=== PATIENT | female | born 1950 | race Caucasian/White ===

== ENCOUNTER 2016-10-01 06:01 | Inpatient (IN) | payer MEDICARE, OTHER ==
[2016-10-01] MEDS ORDERED: Ondansetron 4 MG Tab.DIS PO ONE (06:14)
[2016-10-01] MEDS ORDERED: Dicyclomine 10 MG Cap PO ONE (06:18)
[2016-10-01] MEDS ORDERED: Acetaminophen 325 MG Tab PO ONE (06:19)
[2016-10-01] MEDS ORDERED: Lactated Ringers 1,000 ML IV ONE (06:19)
--- NOTE | 2016-10-01 06:25 | EDM.PDOC ---
ED HPI GENERAL MEDICAL PROBLEM - General Chief Complaint: General Stated Complaint: NOT FEELING WELL Time Seen by Provider: 10/01/16 06:15 Source of Information: Reports: Patient, Old Records History Limitations: Reports: No Limitations - History of Present Illness INITIAL COMMENTS - FREE TEXT/NARRATIVE: 66 yo female with abdominal cramping and nausea x 2 days. Vomited this morning and has some muscle cramping. No fever. No bleeding. Is concerned about dehydration. No self tx. Onset: Gradual Onset Date: 09/29/16 Duration: Day(s): Location: Reports: Abdomen Quality: Reports: Other (cramping) Severity: Moderate Improves with: Reports: None Worsens with: Reports: Other (? time) Context: Reports: Other (unknown) Associated Symptoms: Reports: Nausea/Vomiting Treatments HOSPITALITY SPECIALIST: Reports: Other (see below) (none) Generalized Pain Score (Numeric/FACES): 5 - Related Data Allergies Allergy/AdvReac Type Severity Reaction Status Date / Time No Known Allergies Allergy Verified 10/01/16 06:10 Home Meds: Home Meds Aspirin [Halfprin] 81 mg PO DAILY 02/06/15 [History] Cholecalciferol (Vitamin D3) [Vitamin D3] 1,000 unit PO BID 02/06/15 [History] Cyanocobalamin (Vitamin B-12) [Cyanocobalamin Injection] 1 ml IM Q30D 02/06/15 [ History] Levothyroxine Sodium 100 mcg PO DAILY 02/06/15 [History] Multivitamin [Multivitamins] 1 tab PO DAILY 02/06/15 [History] Simvastatin 20 mg PO BEDTIME 02/06/15 [History] glyBURIDE [Micronase] 2.5 mg PO BIDMEALS #60 tablet 02/08/15 [Rx] Liraglutide [Victoza] 1.2 mg SUBCUT DAILY 10/01/16 [History] Lisinopril 20 mg PO DAILY 10/01/16 [History] metFORMIN [Glucophage] 1,000 mg PO BIDMEALS 10/01/16 [History] Past Medical History HEENT History: Reports: None Respiratory History: Reports: Other (See Below) Other Respiratory History: bronchitis, non-recurrent Gastrointestinal History: Reports: Other (See Below) Other Gastrointestinal History: colon surgery Genitourinary History: Reports: UTI, Recurrent COMMISSIONING SPECIALIST History: Reports: None Endocrine/Metabolic History: Reports: Diabetes, Type II - Past Surgical History GI Surgical History: Reports: Small Bowel Musculoskeletal Surgical History: Reports: Joint Replacement Social & Family History - Family History HEENT: Reports: None Cardiac: Reports: Hypertension Respiratory: Reports: None GI: Reports: None Neurological: Reports: CVA Endocrine/Metabolic: Reports: Diabetes, type II Hematologic: Reports: None Immunologic: Reports: None Oncologic: Reports: Breast - Tobacco Use Smoking Status *Q: Never Smoker Second Hand Smoke Exposure: No - Alcohol Use Days Per Week of Alcohol Use: 0 - Recreational Drug Use Recreational Drug Use: No ED ROS GENERAL - Review of Systems Review Of Systems: See Below Constitutional: Reports: Decreased Appetite. Denies: Fever HEENT: Reports: No Symptoms Respiratory: Reports: No Symptoms Cardiovascular: Reports: No Symptoms Endocrine: Reports: No Symptoms GI/Abdominal: Reports: Abdominal Pain, Decreased Appetite, Nausea, Vomiting. Denies: Black Stool, Bloody Stool, Distension, Flatus, Hematemesis, Hematochezia , Melena : Reports: No Symptoms Musculoskeletal: Reports: No Symptoms Skin: Reports: No Symptoms Neurological: Reports: No Symptoms Psychiatric: Reports: No Symptoms ED EXAM, GENERAL - Physical Exam Exam: See Below Exam Limited By: No Limitations General Appearance: Alert, WD/WN, No Apparent Distress Eye Exam: Bilateral Eye: Normal Inspection Ears: Normal External Exam, Normal Canal, Normal TMs, Hearing Loss. No: Hearing Grossly Normal Ear Exam: Bilateral Ear: Auricle Normal, Canal Normal, TM normal Nose: Normal Inspection, Normal Mucosa, No Blood Throat/Mouth: Normal Inspection, Normal Lips, Normal Oropharynx, Normal Voice, No Airway Compromise Head: Atraumatic, Normocephalic Neck: Normal Inspection, Supple Respiratory/Chest: No Respiratory Distress, Lungs Clear, Normal Breath Sounds, No Accessory Muscle Use Cardiovascular: Regular Rate, Rhythm, No Edema GI/Abdominal: Normal Bowel Sounds, Soft, Non-Tender, No Distention Back Exam: Normal Inspection Extremities: Normal Inspection, Normal Range of Motion, Non-Tender, No Pedal Edema Neurological: Alert, Oriented, CN II-XII Intact, Normal Cognition, Normal Gait, No Motor/Sensory Deficits Psychiatric: Normal Affect, Normal Mood Skin Exam: Warm, Dry, Intact, Normal Color, No Rash Lymphatic: No Adenopathy Course - Vital Signs Text/Narrative:: Zofran ODT 4 mg SL, LR 1000 ml IV, acetaminophen 650 mg po, dicyclomine 20 mg po , regular insulin 12 units subcut, NS 1000 ml IV then 125 ml/h, kayexalate 30 gm po Last Recorded V/S: Last Vital Signs Temp 36.9 C 10/01/16 08:47 Pulse 73 10/01/16 08:47 Resp 17 10/01/16 08:47 BP 85/48 L 10/01/16 08:47 Pulse Ox 97 10/01/16 08:47 - Orders/Labs/Meds Orders: Active Orders 24 hr Category Date Time Status UA W/MICROSCOPIC [URIN] Stat Lab 10/01/16 09:15 Ordered Sodium Chloride 0.9% @ 125 MLS/HR (1000ml) Med 10/01/16 09:30 Ordered Sodium Chloride 0.9% [Normal Saline] 1,000 ml IV ASDIRECTED Sodium Chloride 0.9% [Saline Flush] Med 10/01/16 06:30 Active 10 ml FLUSH ASDIRECTED PRN Saline Lock Insert [OM.PC] Routine Oth 10/01/16 06:30 Ordered Medication Orders Sodium Chloride (Normal Saline) 1,000 mls @ 125 mls/hr IV ASDIRECTED HAWK Sodium Chloride (Saline Flush) 10 ml FLUSH ASDIRECTED PRN PRN Reason: Keep Vein Open Last Admin: 10/01/16 06:33 Dose: 10 ml Labs: Laboratory Tests 10/01/16 10/01/16 10/01/16 Range/Units 06:35 06:35 08:15 WBC 10.4 (4.5-12.0) X10-3/uL RBC 4.67 (3.23-5.20) x10(6)uL Hgb 12.5 (11.5-15.5) g/dL Hct 37.5 (30.0-51.3) % MCV 80.4 (80-96) fL MCH 26.8 L (27.7-33.6) pg MCHC 33.4 (32.2-35.4) g/dL RDW 14.7 (11.5-15.5) % Plt Count 338 (125-369) X10(3)uL Sodium 126 L (135-145) mmol/L Potassium 6.4 H* D (3.5-5.3) mmol/L Chloride 90 L D (100-110) mmol/L Carbon Dioxide 16 L (23-29) mmol/L BUN 122 H* (8-23) mg/dL Creatinine 4.1 H* (0.6-1.3) mg/dL Est Cr Clr Drug Dosing 11.66 mL/min Estimated GFR (MDRD) 11 L (>60) BUN/Creatinine Ratio 29.8 H (9-20) Glucose 300 H D (80-116) mg/dL POC Glucose 226 H (80-116) mg/dL Calcium 9.2 (8.6-10.2) mg/dL 10/01/16 Range/Units 08:45 WBC (4.5-12.0) X10-3/uL RBC (3.23-5.20) x10(6)uL Hgb (11.5-15.5) g/dL Hct (30.0-51.3) % MCV (80-96) fL MCH (27.7-33.6) pg MCHC (32.2-35.4) g/dL RDW (11.5-15.5) % Plt Count (125-369) X10(3)uL Sodium 133 L (135-145) mmol/L Potassium 5.3 D (3.5-5.3) mmol/L Chloride 97 L D (100-110) mmol/L Carbon Dioxide 18 L (23-29) mmol/L BUN 116 H* (8-23) mg/dL Creatinine 3.7 H* (0.6-1.3) mg/dL Est Cr Clr Drug Dosing 12.91 mL/min Estimated GFR (MDRD) 12 L (>60) BUN/Creatinine Ratio 31.4 H (9-20) Glucose 175 H D (80-116) mg/dL POC Glucose (80-116) mg/dL Calcium 8.1 L (8.6-10.2) mg/dL Meds: Medications Generic Name Dose Route Start Last Admin Trade Name Freq PRN Reason Stop Dose Admin Sodium Chloride 1,000 mls @ 125 mls/hr 10/01/16 09:30 Normal Saline IV ASDIRECTED HAWK Sodium Chloride 10 ml 10/01/16 06:30 10/01/16 06:33 Saline Flush FLUSH 10 ml ASDIRECTED PRN Administration Keep Vein Open Discontinued Medications Generic Name Dose Route Start Last Admin Trade Name Ermelinda PRN Reason Stop Dose Admin Acetaminophen 650 mg 10/01/16 06:19 10/01/16 06:41 Tylenol PO 10/01/16 06:20 650 mg NOW ONE Administration Dicyclomine HCl 20 mg 10/01/16 06:18 10/01/16 06:42 Bentyl PO 10/01/16 06:19 20 mg ONETIME ONE Administration Lactated Ringer's 1,000 mls @ 1,000 mls/hr 10/01/16 06:19 10/01/16 06:40 Ringers, Lactated IV 10/01/16 07:18 1,000 mls/hr BOLUS ONE Administration Sodium Chloride 1,000 mls @ 999 mls/hr 10/01/16 07:02 10/01/16 07:41 Normal Saline IV 10/01/16 08:02 999 mls/hr .BOLUS ONE Administration Insulin Human Regular 12 unit 10/01/16 06:59 10/01/16 07:24 Humulin R SUBCUT 10/01/16 07:00 12 units ONETIME ONE Administration Protocol Ondansetron HCl 4 mg 10/01/16 06:14 10/01/16 06:22 Zofran Odt PO 10/01/16 06:15 4 mg ONETIME ONE Administration Sodium Polystyrene Sulfonate 30 gm 10/01/16 07:00 10/01/16 07:26 Kayexalate PO 10/01/16 07:01 30 gm ONETIME ONE Administration Departure - Departure Time of Disposition: 09:32 Disposition: Admitted As Inpatient 66 Condition: Fair Clinical Impression: Dehydration, Hyperkalemia, Hyponatremia, Hyperglycemia Acute renal failure Qualifiers: Acute renal failure type: unspecified Qualified Code(s): N17.9 - Acute kidney failure, unspecified - Discharge Information Forms: ED Department Discharge - My Orders Last 24 Hours: My Active Orders 10/01/16 06:30 Sodium Chloride 0.9% [Saline Flush] 10 ml FLUSH ASDIRECTED PRN Saline Lock Insert [OM.PC] Routine 10/01/16 09:15 UA W/MICROSCOPIC [URIN] Stat 10/01/16 09:30 Sodium Chloride 0.9% @ 125 MLS/HR (1000ml) Sodium Chloride 0.9% [Normal Saline] 1,000 ml IV ASDIRECTED - Assessment/Plan Last 24 Hours: My Active Orders 10/01/16 06:30 Sodium Chloride 0.9% [Saline Flush] 10 ml FLUSH ASDIRECTED PRN Saline Lock Insert [OM.PC] Routine 10/01/16 09:15 UA W/MICROSCOPIC [URIN] Stat 10/01/16 09:30 Sodium Chloride 0.9% @ 125 MLS/HR (1000ml) Sodium Chloride 0.9% [Normal Saline] 1,000 ml IV ASDIRECTED
[2016-10-01] MEDS ORDERED: Sodium Chloride 0.9% 10 ML Syringe FLUSH PRN (06:30)
[2016-10-01] MEDS ORDERED: Insulin Regular, Human 100 Units/ML 3 ML Vial SUBCUT ONE (06:59)
[2016-10-01] MEDS ORDERED: Sodium Polystyrene Sulfonate 15 GM/60 ML Susp 60 ML Bot PO ONE (07:00)
[2016-10-01] MEDS ORDERED: Sodium Chloride 0.9% 1,000 ML IV ONE (07:02)
[2016-10-01] MEDS: Sodium Chloride 0.9% 1,000 ML IV SCH ×2 (09:32→17:49)
[2016-10-01] MEDS ORDERED: Non-Formulary Medication 1 Each (Cholecalciferol (Vitamin D3) [Vitamin D3] 1,000 UNIT) PO SCH (09:45)
[2016-10-01] MEDS ORDERED: Levothyroxine 100 MCG Tab PO SCH (09:45)
[2016-10-01] MEDS: Liraglutide (rDNA Origin) 0.6 MG/0.1 ML 3 ML Pen SUBCUT SCH (11:10)
[2016-10-01] MEDS: Cholecalciferol (Vitamin D3) 1,000 Unit Tab PO SCH ×2 (11:32→20:31)
[2016-10-01] MEDS: Multivitamin Tab PO SCH (11:32)
[2016-10-01] MEDS: Aspirin 81 MG Tab.EC PO SCH (11:32)
--- NOTE | 2016-10-01 13:02 | PCM.HP ---
H&P History of Present Illness - General Date of Service: 10/01/16 Source of Information: Patient - History of Present Illness Initial Comments - Free Text/Narative: 66-year-old female who presented because of vomiting and nausea. She also complained of not feeling well and this started this morning around 4:00. At the ER she was found to have a high creatinine 4.4 and was admitted for reehydration. One week ago she was started on lisinopril for renal protection due to type 2 diabetes. She has uncontrolled type 2 diabetes non-insulin- dependent A1c 8.8 and Mie. She complains of no headache chest pain constipation fever or chills but has had mild shortness on the right. Denies excessive use of NSAIDsShe was also history of hypothyroidism that has been previously stable. She had an ileostomy that was placed more than 40 years ago presumably because of ulcerative colitis complications. She has been drinking and eating normally up until this morning. Generalized Pain Score (Numeric/FACES): 5 Right Shoulder Pain Score (Numeric/FACES): 5 - Related Data Allergies/Adverse Reactions: Allergies Allergy/AdvReac Type Severity Reaction Status Date / Time No Known Allergies Allergy Verified 10/01/16 06:10 Home Medications: Home Meds Aspirin [Halfprin] 81 mg PO DAILY 02/06/15 [History] Cholecalciferol (Vitamin D3) [Vitamin D3] 1,000 unit PO BID 02/06/15 [History] Cyanocobalamin (Vitamin B-12) [Cyanocobalamin Injection] 1 ml IM Q30D 02/06/15 [ History] Levothyroxine Sodium 100 mcg PO DAILY 02/06/15 [History] Multivitamin [Multivitamins] 1 tab PO DAILY 02/06/15 [History] Simvastatin 20 mg PO BEDTIME 02/06/15 [History] Liraglutide [Victoza] 1.2 mg SUBCUT DAILY 10/01/16 [History] Lisinopril 10 mg PO DAILY 10/01/16 [History] glipiZIDE [Glipizide ER] 10 mg PO DAILY 10/01/16 [History] metFORMIN [Glucophage] 1,000 mg PO 12,18 10/01/16 [History] Past Medical History HEENT History: Reports: None Respiratory History: Reports: Other (See Below) Other Respiratory History: bronchitis, non-recurrent Gastrointestinal History: Reports: Other (See Below) Other Gastrointestinal History: colon surgery Genitourinary History: Reports: Acute Renal Failure, Chronic Renal Insuffiency, UTI, Recurrent 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 Musculoskeletal History: Reports: Arthritis, Fracture, Other (See Below) Other Musculoskeletal History: arthritis in right shoulder Neurological History: Reports: Other (See Below) Other Neuro History: speech impediment Endocrine/Metabolic History: Reports: Diabetes, Type II, Hypothyroidism - Infectious Disease History Infectious Disease History: Reports: Chicken Pox, Shingles - Past Surgical History GI Surgical History: Reports: Small Bowel, Other (See Below) Other GI Surgeries/Procedures: ileostomy Female Surgical History: Reports: Hysterectomy, Oophorectomy Musculoskeletal Surgical History: Reports: Joint Replacement, Other (See Below) Other Musculoskeletal Surgeries/Procedures:: left hip replaced, right hip fx and right ankle fracture Social & Family History - Family History HEENT: Reports: None Cardiac: Reports: Hypertension Respiratory: Reports: None GI: Reports: None Neurological: Reports: CVA Endocrine/Metabolic: Reports: Diabetes, type II Hematologic: Reports: None Immunologic: Reports: None Oncologic: Reports: Breast - Tobacco Use Smoking Status *Q: Never Smoker Second Hand Smoke Exposure: No - Caffeine Use Caffeine Use: Reports: Soda, Tea, Other Other Caffeine Use: occ - Alcohol Use Days Per Week of Alcohol Use: 0 - Recreational Drug Use Recreational Drug Use: No H&P Review of Systems - Review of Systems: Review Of Systems: ROS reveals no pertinent complaints other than HPI. Exam - Exam Exam: See Below - Vital Signs Vital Signs: Last Vital Signs Temp 97.6 F 10/01/16 10:35 Pulse 74 10/01/16 10:35 Resp 16 10/01/16 10:35 BP 93/45 L 10/01/16 10:35 Pulse Ox 96 10/01/16 10:35 Weight: 67.721 kg - Exam General: Alert, Oriented, 4 HEENT: PERRLA, Hearing Intact, Mucosa Moist & [place], Nares Patent, Normal Nasal Septum, Posterior Pharynx Clear, Conjunctiva Clear, EOMI, EACs Clear, TMs Clear Neck: Supple, Trachea Midline, 2 Lungs: Clear to Auscultation, Normal Respiratory Effort Cardiovascular: Regular Rate, Regular Rhythm GI/Abdominal Exam: Normal Bowel Sounds, Other (Ileostomy) (Female) Exam: Deferred Rectal (Female) Exam: Deferred Back Exam: Normal Inspection, Full Range of Motion, NT Extremities: Normal Inspection, Normal Range of Motion, Non-Tender, No Pedal Edema, Normal Capillary Refill Skin: Warm, Dry, Intact Neurological: Cranial Nerves Intact, Reflexes Equal Bilateral Neuro Extensive - Mental Status: Alert, Oriented x3, Normal Mood/Affect, Normal Cognition Neuro Extensive - Motor, Sensory, Reflexes: CN II-XII Intact, Normal Gait, Normal Reflexes Psychiatric: Alert, Normal Affect, Normal Mood - Patient Data Result Diagrams: 10/01/16 06:35 10/01/16 08:45 *Q Meaningful Use (ADM) - VTE *Q VTE Criteria *Q: - Stroke *Q Stroke Criteria *Q: - AMI *Q AMI Criteria *Q: - Problem List (1) Acute renal failure SNOMED Code(s): 09792344 ICD Code: N17.9 - ACUTE KIDNEY FAILURE, UNSPECIFIED Status: Acute Current Visit: Yes Qualifiers: Acute renal failure type: unspecified Qualified Code(s): N17.9 - Acute kidney failure, unspecified (2) Hyperkalemia SNOMED Code(s): 43911463 ICD Code: E87.5 - HYPERKALEMIA Status: Acute Current Visit: Yes (3) Diabetes mellitus type 2, noninsulin dependent SNOMED Code(s): 62749943 ICD Code: E11.9 - TYPE 2 DIABETES MELLITUS WITHOUT COMPLICATIONS Status: Chronic Priority: Medium Current Visit: No Problem Details: (4) Hx of ulcerative colitis SNOMED Code(s): 107983703 ICD Code: Z87.19 - PERSONAL HISTORY OF OTHER DISEASES OF THE DIGESTIVE SYSTEM Status: Chronic Current Visit: No (5) Hypothyroidism SNOMED Code(s): 59343235 ICD Code: E03.9 - HYPOTHYROIDISM, UNSPECIFIED Status: Chronic Current Visit: No Problem Details: Qualifiers: 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 Qualified Code(s): E03.8 - Other specified hypothyroidism (6) Ileostomy in place SNOMED Code(s): 341997791 ICD Code: Z93.2 - ILEOSTOMY STATUS Status: Chronic Current Visit: No Problem Details: Problem List Initiated/Reviewed/Updated: Yes Orders Last 24hrs: Active Orders 24 hr Category Date Time Status Blood Glucose Check, Bedside [] [facility] 10/01/16 12:53 Ordered EKG Documentation Completion [RC] ASDIRECTED Care 10/01/16 12:54 Ordered Oxygen Therapy [RC] PRN Care 10/01/16 12:53 Ordered VTE/DVT Education [RC] Per Unit Routine Care 10/01/16 12:53 Ordered Vital Signs [RC] Q4H Care 10/01/16 12:53 Ordered Consistent Carbohydrate Diet [DIET] Diet 10/02/16 Breakfast Ordered BASIC METABOLIC PANEL,BMP [CHEM] AM Lab 10/02/16 05:11 Ordered CBC WITH AUTO DIFF [HEME] AM Lab 10/02/16 05:11 Ordered CULTURE URINE [RM] Routine Lab 10/01/16 09:15 Received GLYCOSYLATED HEMOGLOBIN,HGBA1C [CHEM] Routine Lab 10/01/16 12:53 Ordered TSH ULTRASENSITIVE [CHEM] AM Lab 10/02/16 05:11 Ordered Cholecalciferol (Vitamin D3) [Vitamin D3] Med 10/01/16 10:15 Active 1,000 units PO BID Insulin Aspart [NovoLOG] Med 10/01/16 18:00 Ordered See Protocol SUBCUT TIDMEALS Levothyroxine [Synthroid] Med 10/02/16 06:00 Active 100 mcg PO 0600 glipiZIDE [Glucotrol XL] Med 10/01/16 12:00 Active 10 mg PO DAILY Antiembolic Hose [OM.PC] Per Unit Routine Oth 10/01/16 12:53 Ordered EKG 12 Lead [EK] AM Ther 10/02/16 05:11 Ordered Medication Orders Aspirin (Halfprin) 81 mg PO DAILY [facility] Last Admin: 10/01/16 11:32 Dose: 81 mg Cholecalciferol (Vitamin D3) 1,000 units PO BID [facility] Last Admin: 10/01/16 11:32 Dose: 1,000 units Cyanocobalamin (Vitamin B12) 1,000 mcg IM Q30D HAWK Glipizide (Glucotrol Xl) 10 mg PO DAILY [facility] Sodium Chloride (Normal Saline) 1,000 mls @ 125 mls/hr IV ASDIRECTED [facility] Last Admin: 10/01/16 09:32 Dose: 125 mls/hr Insulin Aspart (Novolog) 0 unit SUBCUT TIDMEALS [facility] PRN Reason: Protocol Levothyroxine Sodium (Synthroid) 100 mcg PO 0600 HAWK Liraglutide (Victoza) 1.2 mg SUBCUT DAILY [facility] Last Admin: 10/01/16 11:10 Dose: Multivitamins/Minerals/Vitamin C (Tab-A-Rashad) 1 tab PO DAILY [facility] Last Admin: 10/01/16 11:32 Dose: 1 tab Simvastatin (Zocor) 20 mg PO BEDTIME [facility] Sodium Chloride (Saline Flush) 10 ml FLUSH ASDIRECTED PRN PRN Reason: Keep Vein Open Last Admin: 10/01/16 06:33 Dose: 10 ml Assessment/Plan Comment:: We will replace IV fluids, and repeat a basic metabolic panel in the morning. Her potassium is normalized with 1 L bolus. Will discontinue lisinopril at this time. I will start a sliding scale insulin to control her blood sugars while she is hospitalized. Other labs ordered include a thyroid-stimulating hormone and a repeat A1c. I feel the cause of renal failure is likely due to the RUTHIE inhibitor. However other causes including prerenal causes like dehydration, congestive heart failure; have not been without at this time will order more testing including a BNP and a fractional excretion of sodium and urine.
[2016-10-01] MEDS: glipiZIDE 10 MG Tab.ER PO SCH (13:51)
[2016-10-01] MEDS: Acetaminophen 325 MG Tab PO PRN ×2 (16:11→21:39)
[2016-10-01] MEDS ORDERED: GLYBURIDE 2.5 MG PO SCH (18:00)
[2016-10-01] MEDS: Insulin Aspart 100 Units/ML 3 ML Pen SUBCUT SCH (18:05)
[2016-10-01] MEDS ORDERED: Simvastatin 20 MG Tab PO SCH (21:00)
[2016-10-02] MEDS: Sodium Chloride 0.9% 1,000 ML IV SCH (02:58)
[2016-10-02] MEDS: Acetaminophen 325 MG Tab PO PRN (03:40)
[2016-10-02] MEDS ORDERED: Levothyroxine 100 MCG Tab PO SCH (06:00)
[2016-10-02 07:56] VITALS: BP 85/46
[2016-10-02] MEDS: Insulin Aspart 100 Units/ML 3 ML Pen SUBCUT SCH (08:09)
[2016-10-02] MEDS: glipiZIDE 10 MG Tab.ER PO SCH (09:25)
[2016-10-02] MEDS: Liraglutide (rDNA Origin) 0.6 MG/0.1 ML 3 ML Pen SUBCUT SCH (09:25)
[2016-10-02] MEDS: Cholecalciferol (Vitamin D3) 1,000 Unit Tab PO SCH (09:25)
[2016-10-02] MEDS: Multivitamin Tab PO SCH (09:25)
[2016-10-02] MEDS: Aspirin 81 MG Tab.EC PO SCH (09:25)
--- NOTE | 2016-10-02 09:26 | PN ---
DATE SEEN: 10/02/2016 CHIEF COMPLAINT: Acute renal failure. HISTORY OF PRESENT ILLNESS: This is a 66-year-old female, admitted yesterday for feeling unwell, vomiting, was found to have acute renal failure with a creatinine of 4.1. She has been given fluids overnight and she feels much better today and ready to go home. She complains of no chest pain, headache, fever, or chills. No nausea or vomiting. Has been tolerating oral diet very well. PAST MEDICAL HISTORY: Includes type 2 diabetes, hypertension, hypothyroidism, history of ileostomy in place. SOCIAL HISTORY: She does not smoke. REVIEW OF SYSTEMS: All other systems were negative. PHYSICAL EXAMINATION: VITAL SIGNS: Today her blood pressure is 85/46, pulse is 73, and temp 97.6. ENT: Negative. CHEST: Clear. CARDIOVASCULAR: Normal. RESPIRATORY SYSTEM: Clear. EXTREMITIES: No edema. LAB STUDIES: Sodium is 134, creatinine is 2.1. Hemoglobin is 9.8 from 12.5 yesterday. TSH is 12.36 and A1c is 10.1. IMPRESSION: 1. Acute renal failure or acute kidney injury with possibilities of tubular necrosis or renal failure. 2. Hyperkalemia and hyponatremia, improved. 3. Uncontrolled type 2 diabetes. 4. Hypothyroidism, uncontrolled. 5. Hypertension, stable. PLAN: My plan is to discharge the patient home. Encouraged lots of fluids. I will continue the glipizide, but we will withhold all the other medications including antihypertensives, RUTHIE inhibitor, and metformin. I would like her to see Dr. Medrano on with a basic metabolic panel and decide what to do with diabetes and hypothyroidism. She should return to the ER if anything gets worse. /[id number] MARIA LUZ/MERLYN
--- NOTE | 2016-10-03 01:10 | DISCH ---
DISCHARGE DATE: 10/02/2016 REASON FOR ADMISSION: 1. Acute kidney injury. 2. Type 2 diabetes. 3. Hypothyroidism. 4. History of ileostomy. 5. Hyponatremia. 6. Hyperkalemia. DISCHARGE DIAGNOSES: 1. Acute kidney injury. 2. Type 2 diabetes. 3. Hypothyroidism. 4. History of ileostomy. 5. Hyponatremia. 6. Hyperkalemia. BRIEF HISTORY AND HOSPITAL COURSE: A 66-year-old female, came in feeling unwell, was found to have acute kidney injury, admitted for rehydration. Sodium was 126 on admission. At 0134 hours this morning, creatinine was 4.1 and night 2.1. She feels much better and is ready to go home. I discontinued metformin, RUTHIE inhibitor, and we will continue with glipizide. I have advised her to see Dr. Medrano tomorrow to discuss further treatment. DISCHARGE MEDICATIONS: Acetaminophen p.r.n., aspirin 81 mg a day, vitamin D 1000 units b.i.d., dicyclomine p.r.n., levothyroxine 125 mcg, Victoza 1.2 mg subcutaneously, glipizide 10 mg a day. FOLLOWUP: She will see Dr. Medrano on , return to the ED with worsening symptoms. A basic metabolic panel will be ordered before she sees Dr. Medrano. Please note, I spent 35 minutes in the discharge of this patient. /[id number] MARIA LUZ/MERLYN
[2016-10-17] MEDS ORDERED: Cyanocobalamin (Vitamin B12) 1,000 MCG/ML SDV IM SCH (09:00)
== END 2016-10-02 10:50 | disposition home or self-care (01) | DRG 683 ==
LOC: FB.ED 06:01 → FB.MS 09:40
PROVIDERS: ADMIT Family Medicine; ATTEND Family Medicine
DX: N17.9 Acute kidney failure, unspecified (principal); E86.0 Dehydration; E87.1 Hypo-osmolality and hyponatremia; E03.9 Hypothyroidism, unspecified; R73.9 Hyperglycemia, unspecified; E87.5 Hyperkalemia; Z93.2 Ileostomy status; E11.65 Type 2 diabetes mellitus with hyperglycemia; Z79.84 Long term (current) use of oral hypoglycemic drugs; Z87.19 Personal history of other diseases of the digestive system; I10 Essential (primary) hypertension
CPT/HCPCS: 36415; 80048 ×2; 81001; 82962; 85027; 87086; 96360; 96361; 96372; 99284 ×2; A9270 ×4; J1815; J7040 ×2; J7050; J7120; 83036; 84443; 85025; 93005

== ENCOUNTER 2017-01-20 08:21 | Emergency (ER) | payer MEDICARE, OTHER ==
[2017-01-20] MEDS ORDERED: Ondansetron 4 MG/2 ML SDV IVPUSH ONE (08:48)
[2017-01-20] MEDS ORDERED: Pantoprazole 40 MG Vial IVPUSH ONE (08:48)
--- NOTE | 2017-01-20 08:52 | EDM.PDOC ---
ED HPI GENERAL MEDICAL PROBLEM - General Chief Complaint: Gastrointestinal Problem Stated Complaint: VOMITING Time Seen by Provider: 01/20/17 08:21 Source of Information: Reports: Patient History Limitations: Reports: No Limitations - History of Present Illness INITIAL COMMENTS - FREE TEXT/NARRATIVE: 66 y.o.w.f with H/O UC, has Ileostomybag in place, H/O NIDDM, CRI, came to the ed due to N/V yesterday and today. Her SBP was 86 on arrival. Pt walked to the ED with her SO. C/O dizziness, nausea and weakness. No C/P, no active vomiting, no diarrhea. BP 86/41 pulse 81 Pulse Ox 99 RR 16 Temp 97.4 Onset Date: 01/18/17 Onset Time: 07:00 Location: Reports: Chest - Related Data Allergies Allergy/AdvReac Type Severity Reaction Status Date / Time No Known Allergies Allergy Verified 01/20/17 11:27 Home Meds: Home Meds Aspirin [Halfprin] 81 mg PO DAILY 02/06/15 [History] Cholecalciferol (Vitamin D3) [Vitamin D3] 1,000 unit PO BID 02/06/15 [History] Cyanocobalamin (Vitamin B-12) [Cyanocobalamin Injection] 1 ml IM Q30D 02/06/15 [ History] Multivitamin [Multivitamins] 1 tab PO DAILY 02/06/15 [History] Simvastatin 20 mg PO BEDTIME 02/06/15 [History] Liraglutide [Victoza] 1.2 mg SUBCUT DAILY 10/01/16 [History] glipiZIDE [Glipizide ER] 10 mg PO DAILY 10/01/16 [History] Levothyroxine 125 mcg PO ACBREAKFAST #30 tab 10/02/16 [Rx] Past Medical History HEENT History: Reports: None Respiratory History: Reports: Other (See Below) Other Respiratory History: bronchitis, non-recurrent Gastrointestinal History: Reports: Other (See Below) Other Gastrointestinal History: colon surgery Genitourinary History: Reports: Acute Renal Failure, Chronic Renal Insuffiency, UTI, Recurrent RESOURCE MANAGER History: Reports: None Musculoskeletal History: Reports: Arthritis, Fracture, Other (See Below) Other Musculoskeletal History: arthritis in right shoulder Neurological History: Reports: Other (See Below) Other Neuro History: speech impediment Endocrine/Metabolic History: Reports: Diabetes, Type II, Hypothyroidism - Infectious Disease History Infectious Disease History: Reports: Chicken Pox, Shingles - Past Surgical History GI Surgical History: Reports: Small Bowel, Other (See Below) Other GI Surgeries/Procedures: ileostomy Female Surgical History: Reports: Hysterectomy, Oophorectomy Musculoskeletal Surgical History: Reports: Joint Replacement, Other (See Below) Other Musculoskeletal Surgeries/Procedures:: left hip replaced, right hip fx and right ankle fracture Social & Family History - Family History HEENT: Reports: None Cardiac: Reports: Hypertension Respiratory: Reports: None GI: Reports: None Neurological: Reports: CVA Endocrine/Metabolic: Reports: Diabetes, type II Hematologic: Reports: None Immunologic: Reports: None Oncologic: Reports: Breast - Tobacco Use Smoking Status *Q: Never Smoker Second Hand Smoke Exposure: No - Caffeine Use Caffeine Use: Reports: Soda, Tea, Other Other Caffeine Use: occ - Alcohol Use Days Per Week of Alcohol Use: 0 - Recreational Drug Use Recreational Drug Use: No ED ROS GENERAL - Review of Systems Review Of Systems: See Below Constitutional: Reports: Weakness, Decreased Appetite HEENT: Reports: No Symptoms Respiratory: Reports: No Symptoms Cardiovascular: Reports: Blood Pressure Problem (low BP) Endocrine: Reports: No Symptoms GI/Abdominal: Reports: Nausea, Vomiting, Other (H/O UC, has ileostomy bag) : Reports: No Symptoms Musculoskeletal: Reports: No Symptoms Skin: Reports: No Symptoms Neurological: Reports: No Symptoms Psychiatric: Reports: No Symptoms Hematologic/Lymphatic: Reports: No Symptoms Immunologic: Reports: No Symptoms ED EXAM, GI/ABD - Physical Exam Exam: See Below Exam Limited By: No Limitations General Appearance: Alert, WD/WN, Mild Distress, Thin Eyes: Bilateral: Normal Appearance Ears: Normal External Exam Nose: Normal Inspection Throat/Mouth: Normal Lips, No Airway Compromise, Other (dry mucosal membrane) Head: Atraumatic, Normocephalic Neck: Normal Inspection, Supple, Non-Tender, Full Range of Motion Respiratory/Chest: No Respiratory Distress Cardiovascular: Normal Peripheral Pulses, Regular Rate, Rhythm, No Edema GI/Abdominal Exam: Normal Bowel Sounds, Soft, Tender (epigastric), Other ( ileostomy bag in place) (Female) Exam: Deferred Rectal (Female) Exam: Deferred Back Exam: Normal Inspection Extremities: Normal Inspection, Normal Range of Motion, Non-Tender, No Pedal Edema Neurological: Alert, Oriented, CN II-XII Intact, Normal Cognition Psychiatric: Normal Affect, Normal Mood Skin Exam: Warm, Dry Lymphatic: No Adenopathy EKG INTERPRETATION EKG Date: 01/20/17 Time: 10:00 Rhythm: NSR Rate (Beats/Min): 84 [place]: Normal P-Wave: Present QRS: Normal ST-T: Other (Peaked T waves) QT: Normal Comparison: NA - No Prior EKG EKG Interpretation Comments: 2nd SAADIA: 01/20/2017 12:03 HR [address]/T waves, not anymore peaked T waves. Course - Vital Signs Text/Narrative:: 66 y.o.w.f with H/O UC, has Ileostomybag in place, H/O NIDDM, CRI, came to the ed due to N/V yesterday and today. Her SBP was 86 on arrival. Pt walked to the ED with her SO. C/O dizziness, nausea and weakness. No C/P, no active vomiting, no diarrhea. BP 86/41 pulse 81 Pulse Ox 99, RR 16 Temp 97.4 PE: WNWD WF, thin, NAD with epigastric pain and nausea Labs: CBC nl, Na 126 K 6.4 Cr. 5.9 BUN 90, Cl 85 VBG: pH 7.30 HCO2 17.8 ECG: NSR rate 88 with peaked T vaves Impression: Hyperkalemia, Acute renal insufficiency, Dehydration, NIDDM, H/O UC. Gastritis 9.51am Consultation: Dr. Cleary, Hospitalist: Transfer Pt to [place] 10.10 am Consultation: Dr. Sexton, Hospitalist, [facility]: Accepted the pt for transfer and further care Tx: CaCl, Kayexalate, NS, DuoNep, D50 and Insulin,Protonix, Zofran Reexam: Improved, peaked T vaves subsided, BP 103/47, pt was able to dring water. Plan: Transfer to [place] Last Recorded V/S: Last Vital Signs Temp 36.4 C 01/20/17 12:20 Pulse 84 01/20/17 11:20 Resp 18 01/20/17 11:10 BP 103/43 L 01/20/17 11:20 Pulse Ox 98 01/20/17 11:10 - Orders/Labs/Meds Orders: Active Orders 24 hr Category Date Time Status Blood Glucose Check, Bedside [RC] ONETIME Care 01/20/17 10:45 Active EKG Documentation Completion [RC] ASDIRECTED Care 01/20/17 11:54 Active Insert Walden Catheter [Insert Urinary Catheter] [OM.PC] Care 01/20/17 10:00 Ordered Q24H RT Aerosol Therapy [RC] ASDIRECTED Care 01/20/17 09:46 Active Urinary Catheter Assessment [RC] QSHIFT Care 01/20/17 09:53 Active Sodium Chloride 0.9% [Normal Saline] 1,000 ml Med 01/20/17 09:00 Active IV ASDIRECTED EKG 12 Lead [EK] Routine Ther 01/20/17 09:47 Ordered EKG 12 Lead [EK] Routine Ther 01/20/17 11:53 Ordered Medication Orders Sodium Chloride (Normal Saline) 1,000 mls @ 125 mls/hr IV ASDIRECTED HAWK Last Admin: 01/20/17 09:50 Dose: 125 mls/hr Labs: Laboratory Tests 01/20/17 01/20/17 01/20/17 Range/Units 09:00 09:00 09:00 WBC 10.2 (4.5-12.0) X10-3/uL RBC 4.73 (3.23-5.20) x10(6)uL Hgb 13.4 D (11.5-15.5) g/dL Hct 38.7 (30.0-51.3) % MCV 81.7 (80-96) fL MCH 28.3 (27.7-33.6) pg MCHC 34.6 (32.2-35.4) g/dL RDW 13.5 (11.5-15.5) % Plt Count 369 (125-369) X10(3)uL MPV 8.0 (7.4-10.4) fL Neut % (Auto) 73.5 (46-82) % Lymph % (Auto) 16.6 (13-37) % Graves % (Auto) 9.0 (4-12) % Eos % (Auto) 1 (1.0-5.0) % Baso % (Auto) 0 (0-2) % Neut # (Auto) 7.5 (1.6-8.3) # Lymph # (Auto) 1.7 (0.6-5.0) # Graves # (Auto) 0.9 (0.0-1.3) # Eos # (Auto) 0.1 (0.0-0.8) # Baso # (Auto) 0.0 (0.0-0.2) # POC VBG pH (7.31-7.41) POC VBG pCO2 (41-51) mmHG POC VBG HCO3 (23-28) mmol/L POC VBG Total CO2 (24-29) mmol/L POC VBG Base Excess (-2-3) mmol/L Sodium 126 L (135-145) mmol/L Potassium 6.4 H* (3.5-5.3) mmol/L Chloride 85 L* (100-110) mmol/L Carbon Dioxide 20 L (21-32) mmol/L BUN 90 H (7-18) mg/dL Creatinine 5.9 H* (0.55-1.02) mg/dL Est Cr Clr Drug Dosing TNP Estimated GFR (MDRD) 7 L (>60) BUN/Creatinine Ratio 15.3 (9-20) Glucose 269 H (80-116) mg/dL POC Glucose (80-116) mg/dL Lactic Acid (0.4-2.2) mmol/L Calcium 8.8 (8.6-10.2) mg/dL Magnesium (1.8-2.5) mg/dL Total Bilirubin (0.1-1.3) mg/dL Direct Bilirubin (0.10-0.20) mg/dL AST (5-25) IU/L ALT (12-36) U/L Alkaline Phosphatase (56-112) IU/L NT-Pro-B Natriuret Pep 80 (<=125) pg/mL Total Protein (6.0-8.0) g/dL Albumin (3.2-4.6) g/dL Amylase (25-115) U/L Urine Color (YELLOW) Urine Appearance (CLEAR) Urine pH (5.0-6.5) Ur Specific [place] (1.010-1.025) Urine Protein (NEGATIVE) mg/dL Urine Glucose (UA) (NEGATIVE) mg/dL Urine Ketones (NEGATIVE) mg/dL Urine Occult Blood (NEGATIVE) Urine Nitrite (NEGATIVE) Urine Bilirubin (NEGATIVE) Urine Urobilinogen (NEGATIVE) mg/dL Ur Leukocyte Esterase (NEGATIVE) Urine WBC (0) Ur Squamous Epith Cells (NS,R,O) Urine Bacteria (NS) 01/20/17 01/20/17 01/20/17 Range/Units 09:00 09:00 09:00 WBC (4.5-12.0) X10-3/uL RBC (3.23-5.20) x10(6)uL Hgb (11.5-15.5) g/dL Hct (30.0-51.3) % MCV (80-96) fL MCH (27.7-33.6) pg MCHC (32.2-35.4) g/dL RDW (11.5-15.5) % Plt Count (125-369) X10(3)uL MPV (7.4-10.4) fL Neut % (Auto) (46-82) % Lymph % (Auto) (13-37) % [place] % (Auto) (4-12) % Eos % (Auto) (1.0-5.0) % Baso % (Auto) (0-2) % Neut # (Auto) (1.6-8.3) # Lymph # (Auto) (0.6-5.0) # Graves # (Auto) (0.0-1.3) # Eos # (Auto) (0.0-0.8) # Baso # (Auto) (0.0-0.2) # POC VBG pH (7.31-7.41) POC VBG pCO2 (41-51) mmHG POC VBG HCO3 (23-28) mmol/L POC VBG Total CO2 (24-29) mmol/L POC VBG Base Excess (-2-3) mmol/L Sodium (135-145) mmol/L Potassium (3.5-5.3) mmol/L Chloride (100-110) mmol/L Carbon Dioxide (21-32) mmol/L BUN (7-18) mg/dL Creatinine (0.55-1.02) mg/dL Est Cr Clr Drug Dosing Estimated GFR (MDRD) (>60) BUN/Creatinine Ratio (9-20) Glucose (80-116) mg/dL POC Glucose (80-116) mg/dL Lactic Acid 2.3 H (0.4-2.2) mmol/L Calcium (8.6-10.2) mg/dL Magnesium 2.0 (1.8-2.5) mg/dL Total Bilirubin 0.3 (0.1-1.3) mg/dL Direct Bilirubin 0.05 L (0.10-0.20) mg/dL AST 30 H (5-25) IU/L ALT 29 (12-36) U/L Alkaline Phosphatase 85 (56-112) IU/L NT-Pro-B Natriuret Pep (<=125) pg/mL Total Protein 8.3 H (6.0-8.0) g/dL Albumin 3.4 (3.2-4.6) g/dL Amylase 86 (25-115) U/L Urine Color (YELLOW) Urine Appearance (CLEAR) Urine pH (5.0-6.5) Ur Specific [place] (1.010-1.025) Urine Protein (NEGATIVE) mg/dL Urine Glucose (UA) (NEGATIVE) mg/dL Urine Ketones (NEGATIVE) mg/dL Urine Occult Blood (NEGATIVE) Urine Nitrite (NEGATIVE) Urine Bilirubin (NEGATIVE) Urine Urobilinogen (NEGATIVE) mg/dL Ur Leukocyte Esterase (NEGATIVE) Urine WBC (0) Ur Squamous Epith Cells (NS,R,O) Urine Bacteria (NS) 01/20/17 01/20/17 01/20/17 Range/Units 10:40 10:45 11:29 WBC (4.5-12.0) X10-3/uL RBC (3.23-5.20) x10(6)uL Hgb (11.5-15.5) g/dL Hct (30.0-51.3) % MCV (80-96) fL MCH (27.7-33.6) pg MCHC (32.2-35.4) g/dL RDW (11.5-15.5) % Plt Count (125-369) X10(3)uL MPV (7.4-10.4) fL Neut % (Auto) (46-82) % Lymph % (Auto) (13-37) % Graves % (Auto) (4-12) % Eos % (Auto) (1.0-5.0) % Baso % (Auto) (0-2) % Neut # (Auto) (1.6-8.3) # Lymph # (Auto) (0.6-5.0) # Graves # (Auto) (0.0-1.3) # Eos # (Auto) (0.0-0.8) # Baso # (Auto) (0.0-0.2) # POC VBG pH 7.30 L (7.31-7.41) POC VBG pCO2 36.1 L (41-51) mmHG POC VBG HCO3 17.8 L (23-28) mmol/L POC VBG Total CO2 19 L (24-29) mmol/L POC VBG Base Excess -9 L (-2-3) mmol/L Sodium (135-145) mmol/L Potassium (3.5-5.3) mmol/L Chloride (100-110) mmol/L Carbon Dioxide (21-32) mmol/L BUN (7-18) mg/dL Creatinine (0.55-1.02) mg/dL Est Cr Clr Drug Dosing Estimated GFR (MDRD) (>60) BUN/Creatinine Ratio (9-20) Glucose (80-116) mg/dL POC Glucose 335 H D (80-116) mg/dL Lactic Acid (0.4-2.2) mmol/L Calcium (8.6-10.2) mg/dL Magnesium (1.8-2.5) mg/dL Total Bilirubin (0.1-1.3) mg/dL Direct Bilirubin (0.10-0.20) mg/dL AST (5-25) IU/L ALT (12-36) U/L Alkaline Phosphatase (56-112) IU/L NT-Pro-B Natriuret Pep (<=125) pg/mL Total Protein (6.0-8.0) g/dL Albumin (3.2-4.6) g/dL Amylase (25-115) U/L Urine Color Yellow (YELLOW) Urine Appearance Slightly cloudy (CLEAR) Urine pH 5.0 (5.0-6.5) Ur Specific [place] 1.025 (1.010-1.025) Urine Protein Negative (NEGATIVE) mg/dL Urine Glucose (UA) 100 H (NEGATIVE) mg/dL Urine Ketones Negative (NEGATIVE) mg/dL Urine Occult Blood Negative (NEGATIVE) Urine Nitrite Negative (NEGATIVE) Urine Bilirubin Negative (NEGATIVE) Urine Urobilinogen Normal (NEGATIVE) mg/dL Ur Leukocyte Esterase Negative (NEGATIVE) Urine WBC 0-5 (0) Ur Squamous Epith Cells Few H (NS,R,O) Urine Bacteria Few H (NS) Meds: Medications Generic Name Dose Route Start Last Admin Trade Name Ermelinda PRN Reason Stop Dose Admin Sodium Chloride 1,000 mls @ 125 mls/hr 01/20/17 09:00 01/20/17 09:50 Normal Saline IV 125 mls/hr ASDIRECTED HAWK Administration Discontinued Medications Generic Name Dose Route Start Last Admin Trade Name Ermelinda PRN Reason Stop Dose Admin Albuterol/Ipratropium 3 ml 01/20/17 09:46 01/20/17 10:03 Duoneb 3.0-0.5 Mg/3 Ml NEB 01/20/17 09:47 3 ml ONETIME ONE Administration Calcium Chloride 1 gm 01/20/17 09:41 01/20/17 10:29 Calcium Chloride 10% IV 01/20/17 09:42 1 gm ONETIME ONE Administration Dextrose/Water 50 ml 01/20/17 09:41 01/20/17 10:20 Dextrose 50% In Water IVPUSH 01/20/17 09:42 50 ml ONETIME ONE Administration Sodium Chloride 1,000 mls @ 999 mls/hr 01/20/17 10:00 Normal Saline IV 01/20/17 11:00 .BOLUS ONE Insulin Human Regular 10 unit 01/20/17 09:41 01/20/17 10:23 Humulin R IVPUSH 01/20/17 09:42 10 units ONETIME ONE Administration Ondansetron HCl 8 mg 01/20/17 08:48 01/20/17 09:56 Zofran IVPUSH 01/20/17 08:49 8 mg ONETIME ONE Administration Pantoprazole Sodium 40 mg 01/20/17 08:48 01/20/17 10:15 Protonix Iv IVPUSH 01/20/17 08:49 40 mg ONETIME ONE Administration Sodium Bicarbonate 50 meq 01/20/17 09:41 01/20/17 10:15 Sodium Bicarbonate 8.4% IVPUSH 01/20/17 09:42 Not Given ONETIME ONE Sodium Polystyrene Sulfonate 15 gm 01/20/17 09:41 01/20/17 10:16 Kayexalate PO 01/20/17 09:42 15 gm ONETIME ONE Administration Departure - Departure Time of Disposition: 11:49 Disposition: DC/Tfer to [facility] Condition: Fair Clinical Impression: Hyperkalemia, Dehydration, Ulcerative colitis, Diabetes Acute renal failure Qualifiers: Acute renal failure type: unspecified Qualified Code(s): N17.9 - Acute kidney failure, unspecified Gastritis Qualifiers: Gastritis type: unspecified gastritis Chronicity: acute Gastritis bleeding: without bleeding Qualified Code(s): K29.00 - Acute gastritis without bleeding - Discharge Information Referrals: Michael Medrano MD [Primary Care Provider] - Forms: ED Department Discharge - My Orders Last 24 Hours: My Active Orders 01/20/17 09:00 Sodium Chloride 0.9% [Normal Saline] 1,000 ml IV ASDIRECTED 01/20/17 09:46 RT Aerosol Therapy [RC] ASDIRECTED 01/20/17 09:47 EKG 12 Lead [EK] Routine 01/20/17 09:53 Urinary Catheter Assessment [RC] QSHIFT 01/20/17 10:00 Insert Walden Catheter [Insert Urinary Catheter] [OM.PC] Q24H 01/20/17 10:45 Blood Glucose Check, Bedside [RC] ONETIME 01/20/17 11:53 EKG 12 Lead [EK] Routine 01/20/17 11:54 EKG Documentation Completion [RC] ASDIRECTED - Assessment/Plan Last 24 Hours: My Active Orders 01/20/17 09:00 Sodium Chloride 0.9% [Normal Saline] 1,000 ml IV ASDIRECTED 01/20/17 09:46 RT Aerosol Therapy [RC] ASDIRECTED 01/20/17 09:47 EKG 12 Lead [EK] Routine 01/20/17 09:53 Urinary Catheter Assessment [RC] QSHIFT 01/20/17 10:00 Insert Walden Catheter [Insert Urinary Catheter] [OM.PC] Q24H 01/20/17 10:45 Blood Glucose Check, Bedside [RC] ONETIME 01/20/17 11:53 EKG 12 Lead [EK] Routine 01/20/17 11:54 EKG Documentation Completion [RC] ASDIRECTED
[2017-01-20] MEDS ORDERED: Sodium Chloride 0.9% 1,000 ML IV SCH (09:00)
[2017-01-20] MEDS ORDERED: 50% Dextrose in Water 50 ML Syringe IVPUSH ONE (09:41)
[2017-01-20] MEDS ORDERED: Sodium Polystyrene Sulfonate 15 GM/60 ML Susp 60 ML Bot PO ONE (09:41)
[2017-01-20] MEDS ORDERED: Insulin Regular, Human 100 Units/ML 3 ML Vial IVPUSH ONE (09:41)
[2017-01-20] MEDS ORDERED: Sodium Bicarbonate 8.4% 50 MEQ/50 ML SDV IVPUSH ONE (09:41)
[2017-01-20] MEDS ORDERED: Calcium Chloride 10% 1 GM/10 ML Syringe IV ONE (09:41)
[2017-01-20] MEDS ORDERED: Albuterol/Ipratropium 3.0-0.5 MG/3 ML Neb Soln NEB ONE (09:46)
[2017-01-20] MEDS ORDERED: Sodium Chloride 0.9% 1,000 ML IV ONE (10:00)
[2017-01-20 12:05] VITALS: BP 103/43
== END 2017-01-20 13:40 | disposition critical access hospital (66) ==
LOC: FB.ED 08:21
DX: K51.90 Ulcerative colitis, unspecified, without complications (principal); K29.00 Acute gastritis without bleeding; E11.9 Type 2 diabetes mellitus without complications; N17.9 Acute kidney failure, unspecified; E87.5 Hyperkalemia; E86.0 Dehydration; E03.9 Hypothyroidism, unspecified; Z79.82 Long term (current) use of aspirin; Z79.899 Other long term (current) drug therapy; Z79.84 Long term (current) use of oral hypoglycemic drugs
CPT/HCPCS: 36415; 80048; 80076; 81001; 82150; 82803; 82962; 83605; 83735; 83880; 85025; 93005; 94640; 96361; 96374; 96375; 99285; A9270; C9113; J1815; J2405; J7040; J7620; 93010

== ENCOUNTER 2020-02-22 11:03 | Observation (INO) | payer MEDICARE, OTHER ==
[2020-02-22] MEDS ORDERED: Sodium Chloride 0.9% 10 ML Syringe FLUSH PRN (11:21)
[2020-02-22] MEDS ORDERED: Ondansetron 4 MG Tab.DIS PO PRN (11:21)
[2020-02-22] MEDS: Acetaminophen 325 MG Tab PO PRN ×2 (12:00→18:54)
[2020-02-22] MEDS: Sodium Chloride 0.9% 1,000 ML IV SCH ×2 (13:02→20:59)
[2020-02-22] MEDS: Enoxaparin 30 MG/0.3 ML Syringe SUBCUT SCH (13:10)
--- NOTE | 2020-02-22 14:45 | US ---
INDICATION: Acute upon chronic renal failure. RENAL ULTRASOUND COMPLETE: Utilizing 2-D realtime duplex Doppler spectral analysis and color flow imaging, examination of the kidneys and urinary bladder were obtained 02/22/20 and compared with 12/08/19 and 02/01/15. The right kidney measures 10.8 x 5 x 5.2 cm. Left kidney measured 10.3 x 3.8 x 3.4 cm. The measurements of the kidneys appears slightly decreased compared with the previous examination to moderate decreased raising question of interval renal cortical thinning. The renal cortices were thinned with some irregularity compatible with renal cortical scarring. Minimal hydronephrosis is noted bilaterally, slightly more prominent on the left than right, but significantly less prominent than on the previous study on the left. On the left, there is a 1.1 x 0.8 x 0.5 mm echogenic focus in the midpole medulla compatible with a renal calculus that is nonobstructive. A parapelvic cystic mass is again noted on the left emanating from the midpole area which measured approximately 10.9 x 10.6 x 6.8 cm - somewhat smaller than on the previous study where maximum diameter of 12.4 cm was obtained. The urinary bladder showed evidence of a right ureteral jet. However, the left ureteral jet was absent raising question of obstructive uropathy6 on the left. It may be incidental - correlate clinically. No solid renal masses were demonstrated. IMPRESSION: 1. Renal cortical scarring with renal cortical thinning. 2. Large fairly stable or slightly decreased in size left parapelvic renal cyst. 3. Renal calculus midpole left kidney again noted. [facility]
[2020-02-22] MEDS ORDERED: Ondansetron 4 MG/2 ML SDV IVPUSH PRN (18:14)
[2020-02-22] MEDS: Ferrous Sulfate 325 MG Tab *PTOM PO SCH (18:57)
[2020-02-22] MEDS: INSULIN ASPART 14 UNIT SUBCUT SCH (18:58)
[2020-02-22] MEDS: Simvastatin 20 MG Tab *PTOM PO SCH (18:58)
[2020-02-22] MEDS: INSULIN DEGLUDEC 28 UNIT SUBCUT SCH (20:57)
[2020-02-23] MEDS: Sodium Chloride 0.9% 1,000 ML IV SCH ×3 (04:00→19:28)
[2020-02-23] MEDS: Levothyroxine 125 MCG Tab *PTOM PO SCH (05:29)
--- NOTE | 2020-02-23 07:51 | PCM.HP.2 ---
H&P History of Present Illness - General Date of Service: 02/22/20 Admit Problem/Dx: Admission Diagnosis/Problem Admission Diagnosis/Problem Renal failure Source of Information: Patient History Limitations: Reports: No Limitations - History of Present Illness Initial Comments - Free Text/Narative: This is 69-year-old diabetic with chronic renal failure. She's been having pro blems increased creatinine and dehydration. Sodium is been a little bit low. She does the clinic and she's very dehydrated, abdominal pain, achy all over. She denies fevers, chills, runny nose, chest pain, cough, shortness of breath. She's been in several times in received IV fluids. Nephrology is been followed also. She's failed outpatient treatment. Lower Back Pain Score (Numeric/FACES): 8 - Related Data Allergies/Adverse Reactions: Allergies Allergy/AdvReac Type Severity Reaction Status Date / Time No Known Allergies Allergy Verified 02/22/20 12:08 Home Medications: Home Meds Aspirin [Halfprin] 81 mg PO DAILY@1200 02/06/15 [History] Multivitamin [Multivitamins] 1 tab PO DAILY@1200 02/06/15 [History] Simvastatin 20 mg PO WITHDINNER 02/06/15 [History] Liraglutide [Victoza] 1.8 mg SUBCUT DAILY 10/01/16 [History] Levothyroxine 125 mcg PO ACBREAKFAST #30 tab 10/02/16 [Rx] Calcium Carbonate/Vitamin D3 [Calcium 500-Vit D3 200 Caplet] 1 tab PO DAILY@1200 02/22/20 [History] Ferrous Sulfate 325 mg PO BIDMEALS 02/22/20 [History] Insulin Aspart [NovoLOG] 12 units SUBCUT WITHLUNCH 02/22/20 [History] Insulin Aspart [NovoLOG] 14 units SUBCUT BIDMEALS 02/22/20 [History] Insulin Degludec [Tresiba Flextouch U-100] 28 units SUBCUT BEDTIME 02/22/20 [History] amLODIPine [Norvasc] 2.5 mg PO DAILY 02/22/20 [History] Past Medical History HEENT History: Reports: None Cardiovascular History: Reports: High Cholesterol Respiratory History: Reports: Other (See Below) Other Respiratory History: bronchitis, non-recurrent Gastrointestinal History: Reports: Other (See Below) Other Gastrointestinal History: colon surgery Genitourinary History: Reports: Acute Renal Failure, Chronic Renal Insuffiency, UTI, Recurrent [employer] OR [employer] History: Reports: None Musculoskeletal History: Reports: Arthritis, Fracture, Other (See Below) Other Musculoskeletal History: arthritis in right shoulder Neurological History: Reports: Other (See Below) Other Neuro History: speech impediment Psychiatric History: Reports: None Endocrine/Metabolic History: Reports: Diabetes, Type II, Hypothyroidism, Obesity/BMI 30+ Who Manages Your Pump: Patient (Self) Insulin Pump Management Assessment Comments: Pt does not wear pump. Dexcom like measuring device located to right outer aspect of arm; pt reports she forgot her reader. Hematologic History: Reports: Anticoagulation Therapy, B12 Deficiency Other Hematologic History: TAKES ASA 81MG DAILY Oncologic (Cancer) History: Reports: None Dermatologic History: Reports: None - Infectious Disease History Infectious Disease History: Reports: Chicken Pox, Shingles - Past Surgical History Head Surgeries/Procedures: Reports: None Cardiovascular Surgical History: Reports: None Respiratory Surgical History: Reports: None GI Surgical History: Reports: Small Bowel, Other (See Below) Other GI Surgeries/Procedures: ileostomy Female Surgical History: Reports: Hysterectomy, Oophorectomy Musculoskeletal Surgical History: Reports: Joint Replacement, Other (See Below) Other Musculoskeletal Surgeries/Procedures:: left hip replaced, right hip fx and right ankle fracture Social & Family History - Family History Family Medical History: No Pertinent Family History HEENT: Reports: None Cardiac: Reports: Hypertension Respiratory: Reports: None GI: Reports: None Neurological: Reports: CVA Endocrine/Metabolic: Reports: Diabetes, type II Hematologic: Reports: None Immunologic: Reports: None Oncologic: Reports: Breast - Tobacco Use Tobacco Use Status *Q: Never Tobacco User Second Hand Smoke Exposure: No - Caffeine Use Caffeine Use: Reports: Tea Other Caffeine Use: occ - Recreational Drug Use Recreational Drug Use: No H&P Review of Systems - Review of Systems: Review Of Systems: See Below General: Reports: Malaise, Weakness, Fatigue, Decreased Appetite. Denies: Fever, Chills HEENT: Reports: No Symptoms Pulmonary: Reports: No Symptoms Cardiovascular: Reports: No Symptoms Gastrointestinal: Reports: Nausea, Vomiting Genitourinary: Reports: No Symptoms Musculoskeletal: Reports: Muscle Pain Skin: Reports: No Symptoms Psychiatric: Reports: No Symptoms Neurological: Reports: No Symptoms Hematologic/Lymphatic: Reports: No Symptoms Immunologic: Reports: No Symptoms Exam - Exam Exam: See Below - Vital Signs Vital Signs: Last Vital Signs Temp 97.8 F 02/23/20 05:40 Pulse 86 02/23/20 05:40 Resp 16 02/23/20 05:40 BP 117/69 02/23/20 05:40 Pulse Ox 99 02/23/20 05:40 Weight: 147 lb 14.4 oz - Exam Quality Assessment: No: Supplemental Oxygen General: Alert, Oriented, Cooperative HEENT: Posterior Pharynx Clear, TMs Clear, Other (Hearing aid right ear) Neck: Supple, Trachea Midline Lungs: Clear to Auscultation, Normal Respiratory Effort. No: Crackles, Rales, Rhonchi Cardiovascular: Regular Rate, Regular Rhythm GI/Abdominal Exam: Normal Bowel Sounds, Soft, Tender (Diffuse). No: Guarding, Rigid, Rebound, Hepatomegaly, Splenomegaly Back Exam: Normal Inspection Extremities: Normal Inspection, No Pedal Edema, Other (Tenderness to legs bilateral.) Skin: Warm Neurological: Normal Speech, Normal Tone Neuro Extensive - Motor, Sensory, Reflexes: Normal Gait Psychiatric: Alert - Patient Data Lab Results Last 24 hrs: Laboratory Results - last 24 hr 02/22/20 02/22/20 02/22/20 Range/Units 11:43 11:43 11:43 WBC 7.9 (3.0-10.3) x10-3/uL RBC 5.01 (3.60-5.20) x10(6)uL Hgb 14.1 (11.4-15.5) g/dL Hct 42.6 (34.2-48.2) % MCV 85.1 (76.7-100.5) fL MCH 28.3 (23.9-33.9) pg MCHC 33.2 (31.9-34.8) g/dL RDW 19.7 H (12.3-16.5) % Plt Count 452 (151-488) x10(3)uL MPV 6.9 L (7.1-12.4) fL Neut % (Auto) 74.7 (30.8-76.2) % Lymph % (Auto) 12.3 L (18.4-52.1) % E[place] % (Auto) 12.5 (4.4-15.7) % Eos % (Auto) 0.2 L (0.6-8.1) % Baso % (Auto) 0.3 (0.2-1.5) % Neut # (Auto) 5.9 (1.5-6.3) x10-3/uL Lymph # (Auto) 1.0 (1.0-4.4) x10-3/uL Eaton # (Auto) 1.0 (0.3-1.0) x10-3/uL Eos # (Auto) 0.0 (0.0-0.8) x10-3/uL Baso # (Auto) 0.0 (0.0-0.1) x10-3/uL D-Dimer, Quantitative 0.59 (0.0-0.59) mg/LFEU Sodium 123 L (135-145) mmol/L Potassium 3.9 D (3.5-5.3) mmol/L Chloride 84 L* (100-110) mmol/L Carbon Dioxide 24 (21-32) mmol/L BUN 97 H (7-18) mg/dL Creatinine 2.8 H* (0.55-1.02) mg/dL Est Cr Clr Drug Dosing TNP Estimated GFR (MDRD) 17 L (>60) BUN/Creatinine Ratio 34.6 H (9-20) Glucose 241 H (80-116) mg/dL POC Glucose (74-100) mg/dL Calcium 9.7 (8.6-10.2) mg/dL Total Bilirubin 0.4 (0.1-1.3) mg/dL AST 65 H D (5-25) IU/L ALT 119 H D (12-36) U/L Alkaline Phosphatase 105 (56-112) IU/L Troponin I (4.0-60.3) pg/mL Total Protein 8.0 (6.0-8.0) g/dL Albumin 3.9 (3.2-4.6) g/dL Globulin 4.1 g/dL Albumin/Globulin Ratio 1.0 TSH, Ultra Sensitive (0.36-3.74) IU/mL Urine Color (YELLOW) Urine Appearance (CLEAR) Urine pH (5.0-6.5) Ur Specific [place] (1.010-1.025) Urine Protein (NEGATIVE) mg/dL Urine Glucose (UA) (NORMAL) mg/dL Urine Ketones (NEGATIVE) mg/dL Urine Occult Blood (NEGATIVE) Urine Nitrite (NEGATIVE) Urine Bilirubin (NEGATIVE) Urine Urobilinogen (NEGATIVE) mg/dL Ur Leukocyte Esterase (NEGATIVE) Urine RBC (0-5) Urine WBC (0-5) Ur Squamous Epith Cells (NS,R,O) Urine Bacteria (NS) Ur Random Sodium mmol/L 02/22/20 02/22/20 02/22/20 Range/Units 11:43 13:46 13:46 WBC (3.0-10.3) x10-3/uL RBC (3.60-5.20) x10(6)uL Hgb (11.4-15.5) g/dL Hct (34.2-48.2) % MCV (76.7-100.5) fL MCH (23.9-33.9) pg MCHC (31.9-34.8) g/dL RDW (12.3-16.5) % Plt Count (151-488) x10(3)uL MPV (7.1-12.4) fL Neut % (Auto) (30.8-76.2) % Lymph % (Auto) (18.4-52.1) % Eaton % (Auto) (4.4-15.7) % Eos % (Auto) (0.6-8.1) % Baso % (Auto) (0.2-1.5) % Neut # (Auto) (1.5-6.3) x10-3/uL Lymph # (Auto) (1.0-4.4) x10-3/uL Eaton # (Auto) (0.3-1.0) x10-3/uL Eos # (Auto) (0.0-0.8) x10-3/uL Baso # (Auto) (0.0-0.1) x10-3/uL D-Dimer, Quantitative (0.0-0.59) mg/LFEU Sodium (135-145) mmol/L Potassium (3.5-5.3) mmol/L Chloride (100-110) mmol/L Carbon Dioxide (21-32) mmol/L BUN (7-18) mg/dL Creatinine (0.55-1.02) mg/dL Est Cr Clr Drug Dosing Estimated GFR (MDRD) (>60) BUN/Creatinine Ratio (9-20) Glucose (80-116) mg/dL POC Glucose (74-100) mg/dL Calcium (8.6-10.2) mg/dL Total Bilirubin (0.1-1.3) mg/dL AST (5-25) IU/L ALT (12-36) U/L Alkaline Phosphatase (56-112) IU/L Troponin I 16.0 (4.0-60.3) pg/mL Total Protein (6.0-8.0) g/dL Albumin (3.2-4.6) g/dL Globulin g/dL Albumin/Globulin Ratio TSH, Ultra Sensitive 6.37 H (0.36-3.74) IU/mL Urine Color Yellow (YELLOW) Urine Appearance Clear (CLEAR) Urine pH 5.0 (5.0-6.5) Ur Specific [place] 1.020 (1.010-1.025) Urine Protein Negative (NEGATIVE) mg/dL Urine Glucose (UA) Normal (NORMAL) mg/dL Urine Ketones Negative (NEGATIVE) mg/dL Urine Occult Blood Negative (NEGATIVE) Urine Nitrite Negative (NEGATIVE) Urine Bilirubin Negative (NEGATIVE) Urine Urobilinogen Normal (NEGATIVE) mg/dL Ur Leukocyte Esterase Small H (NEGATIVE) Urine RBC 0-5 (0-5) Urine WBC 5-10 H (0-5) Ur Squamous Epith Cells Few H (NS,R,O) Urine Bacteria Few H (NS) Ur Random Sodium 16 mmol/L 02/22/20 02/22/20 02/23/20 Range/Units 16:30 17:46 05:41 WBC (3.0-10.3) x10-3/uL RBC (3.60-5.20) x10(6)uL Hgb (11.4-15.5) g/dL Hct (34.2-48.2) % MCV (76.7-100.5) fL MCH (23.9-33.9) pg MCHC (31.9-34.8) g/dL RDW (12.3-16.5) % Plt Count (151-488) x10(3)uL MPV (7.1-12.4) fL Neut % (Auto) (30.8-76.2) % Lymph % (Auto) (18.4-52.1) % Eaton % (Auto) (4.4-15.7) % Eos % (Auto) (0.6-8.1) % Baso % (Auto) (0.2-1.5) % Neut # (Auto) (1.5-6.3) x10-3/uL Lymph # (Auto) (1.0-4.4) x10-3/uL Eaton # (Auto) (0.3-1.0) x10-3/uL Eos # (Auto) (0.0-0.8) x10-3/uL Baso # (Auto) (0.0-0.1) x10-3/uL D-Dimer, Quantitative (0.0-0.59) mg/LFEU Sodium 124 L (135-145) mmol/L Potassium (3.5-5.3) mmol/L Chloride (100-110) mmol/L Carbon Dioxide (21-32) mmol/L BUN (7-18) mg/dL Creatinine (0.55-1.02) mg/dL Est Cr Clr Drug Dosing Estimated GFR (MDRD) (>60) BUN/Creatinine Ratio (9-20) Glucose (80-116) mg/dL POC Glucose 173 H 122 H (74-100) mg/dL Calcium (8.6-10.2) mg/dL Total Bilirubin (0.1-1.3) mg/dL AST (5-25) IU/L ALT (12-36) U/L Alkaline Phosphatase (56-112) IU/L Troponin I (4.0-60.3) pg/mL Total Protein (6.0-8.0) g/dL Albumin (3.2-4.6) g/dL Globulin g/dL Albumin/Globulin Ratio TSH, Ultra Sensitive (0.36-3.74) IU/mL Urine Color (YELLOW) Urine Appearance (CLEAR) Urine pH (5.0-6.5) Ur Specific [place] (1.010-1.025) Urine Protein (NEGATIVE) mg/dL Urine Glucose (UA) (NORMAL) mg/dL Urine Ketones (NEGATIVE) mg/dL Urine Occult Blood (NEGATIVE) Urine Nitrite (NEGATIVE) Urine Bilirubin (NEGATIVE) Urine Urobilinogen (NEGATIVE) mg/dL Ur Leukocyte Esterase (NEGATIVE) Urine RBC (0-5) Urine WBC (0-5) Ur Squamous Epith Cells (NS,R,O) Urine Bacteria (NS) Ur Random Sodium mmol/L 02/23/20 Range/Units 06:30 WBC (3.0-10.3) x10-3/uL RBC (3.60-5.20) x10(6)uL Hgb (11.4-15.5) g/dL Hct (34.2-48.2) % MCV (76.7-100.5) fL MCH (23.9-33.9) pg MCHC (31.9-34.8) g/dL RDW (12.3-16.5) % Plt Count (151-488) x10(3)uL MPV (7.1-12.4) fL Neut % (Auto) (30.8-76.2) % Lymph % (Auto) (18.4-52.1) % [place] % (Auto) (4.4-15.7) % Eos % (Auto) (0.6-8.1) % Baso % (Auto) (0.2-1.5) % Neut # (Auto) (1.5-6.3) x10-3/uL Lymph # (Auto) (1.0-4.4) x10-3/uL [place] # (Auto) (0.3-1.0) x10-3/uL Eos # (Auto) (0.0-0.8) x10-3/uL Baso # (Auto) (0.0-0.1) x10-3/uL D-Dimer, Quantitative (0.0-0.59) mg/LFEU Sodium 128 L (135-145) mmol/L Potassium 3.7 (3.5-5.3) mmol/L Chloride 91 L D (100-110) mmol/L Carbon Dioxide 28 (21-32) mmol/L BUN 75 H D (7-18) mg/dL Creatinine 1.8 H (0.55-1.02) mg/dL Est Cr Clr Drug Dosing 25.47 Estimated GFR (MDRD) 28 L (>60) BUN/Creatinine Ratio 41.7 H (9-20) Glucose 140 H D (80-116) mg/dL POC Glucose (74-100) mg/dL Calcium 8.3 L (8.6-10.2) mg/dL Total Bilirubin (0.1-1.3) mg/dL AST (5-25) IU/L ALT (12-36) U/L Alkaline Phosphatase (56-112) IU/L Troponin I (4.0-60.3) pg/mL Total Protein (6.0-8.0) g/dL Albumin (3.2-4.6) g/dL Globulin g/dL Albumin/Globulin Ratio TSH, Ultra Sensitive (0.36-3.74) IU/mL Urine Color (YELLOW) Urine Appearance (CLEAR) Urine pH (5.0-6.5) Ur Specific [place] (1.010-1.025) Urine Protein (NEGATIVE) mg/dL Urine Glucose (UA) (NORMAL) mg/dL Urine Ketones (NEGATIVE) mg/dL Urine Occult Blood (NEGATIVE) Urine Nitrite (NEGATIVE) Urine Bilirubin (NEGATIVE) Urine Urobilinogen (NEGATIVE) mg/dL Ur Leukocyte Esterase (NEGATIVE) Urine RBC (0-5) Urine WBC (0-5) Ur Squamous Epith Cells (NS,R,O) Urine Bacteria (NS) Ur Random Sodium mmol/L Result Diagrams: 02/22/20 11:43 02/23/20 06:30 Sepsis Event Note - Evaluation Sepsis Screening Result: No Definite Risk - Focused Exam Vital Signs: Vital Signs Temp Pulse Resp BP Pulse Ox 02/23/20 05:40 97.8 F 86 16 117/69 99 02/23/20 02:20 97.5 F 75 16 123/64 100 02/22/20 20:45 98.1 F 88 16 118/69 97 - Problem List (1) Chronic renal failure SNOMED Code(s): 63695638 ICD Code: N18.9 - CHRONIC KIDNEY DISEASE, UNSPECIFIED Status: Acute Current Visit: Yes (2) Palliative care status SNOMED Code(s): 180772099 ICD Code: Z51.5 - ENCOUNTER FOR PALLIATIVE CARE Status: Acute Current Visit: Yes (3) Acute hyponatremia SNOMED Code(s): 2066018 ICD Code: E87.1 - HYPO-OSMOLALITY AND HYPONATREMIA Status: Acute Priority: Medium Current Visit: No (4) Acute renal injury SNOMED Code(s): 41123960, 40217136 ICD Code: N17.9 - ACUTE KIDNEY FAILURE, UNSPECIFIED Status: Acute Priority: High Current Visit: No (5) Dehydration SNOMED Code(s): 34660393 ICD Code: E86.0 - DEHYDRATION Status: Acute Current Visit: No Problem List Initiated/Reviewed/Updated: Yes Orders Last 24hrs: Active Orders 24 hr Category Date Time Status Patient Status [ADT] Routine ADT 02/22/20 11:21 Active Ambulate [RC] PER UNIT ROUTINE Care 02/23/20 07:45 Ordered Blood Glucose Check, Bedside [RC] BIDMEALS Care 02/22/20 11:21 Active May Shower [RC] .PRN Care 02/22/20 11:21 Active Oxygen Therapy [RC] .PRN Care 02/22/20 11:21 Active Up ad Meryl [RC] .PRN Care 02/22/20 11:21 Active VTE/DVT Education [RC] .PRN Care 02/22/20 11:21 Active Vital Signs [RC] QSHIFT Care 02/22/20 11:21 Active Consistent Carbohydrate Diet [DIET] Diet 02/22/20 Dinner Active Protein Restricted Diet [DIET] Diet 02/22/20 Dinner Active Renal Non-Dialysis Diet [DIET] Diet 02/22/20 Dinner Active CORONAVIRUS COVID-19 KRYSTLE [MOLEC] Routine Lab 02/23/20 07:44 Ordered Acetaminophen [TylenoL] Med 02/22/20 11:21 Active 650 mg PO Q4H PRN Aspirin [Halfprin] Med 02/23/20 12:00 Active 81 mg PO DAILY@1200 Calcium Carbonate/Vitamin D3 [Calcium 500-Vit D3 200 Med 02/23/20 12:00 Active Caplet] 1 tab PO DAILY@1200 Enoxaparin [Lovenox] Med 02/22/20 12:30 Active 30 mg SUBCUT Q24H Ferrous Sulfate Med 02/22/20 18:00 Active 325 mg PO BIDMEALS Insulin Aspart [NovoLOG] Med 02/23/20 12:00 Active 12 units SUBCUT WITHLUNCH Insulin Aspart [NovoLOG] Med 02/22/20 18:00 Active 14 units SUBCUT BIDMEALS Insulin Degludec [Tresiba Flextouch U-100] Med 02/22/20 21:00 Active 28 units SUBCUT BEDTIME Levothyroxine Med 02/23/20 06:00 Active 125 mcg PO DAILY@0600 Liraglutide [Victoza] Med 02/23/20 09:00 Active 1.8 mg SUBCUT DAILY Multivitamins [Tab-A-Rashad] Med 02/23/20 12:00 Active 1 tab PO DAILY@1200 Ondansetron [Zofran ODT] Med 02/22/20 11:21 Active 4 mg PO Q4H PRN Ondansetron [Zofran] Med 02/22/20 18:14 Active 4 mg IVPUSH Q4H PRN Simvastatin [Zocor] Med 02/22/20 18:00 Active 20 mg PO WITHDINNER Sodium Chloride 0.9% [Normal Saline] 1,000 ml Med 02/22/20 11:30 Active IV ASDIRECTED Sodium Chloride 0.9% [Saline Flush] Med 02/22/20 11:21 Active 10 ml FLUSH ASDIRECTED PRN amLODIPine [Norvasc] Med 02/23/20 09:00 Active 2.5 mg PO DAILY Peripheral IV Insertion Adult [OM.PC] Routine Oth 02/22/20 11:21 Ordered Resuscitation Status Routine Resus Stat 02/22/20 11:21 Ordered EKG 12 Lead [EK] Routine Ther 02/22/20 11:26 Ordered Medication Orders Acetaminophen (Tylenol) 650 mg PO Q4H PRN PRN Reason: Pain (Mild 1-3)/fever Last Admin: 02/22/20 18:54 Dose: 650 mg Documented by: Admin: 02/22/20 12:00 Dose: 650 mg Documented by: BLU Amlodipine Besylate (Norvasc) 2.5 mg PO DAILY [facility] Aspirin (Halfprin) 81 mg PO DAILY@1200 [facility] Enoxaparin Sodium (Lovenox) 30 mg SUBCUT Q24H [facility] Last Admin: 02/22/20 13:10 Dose: 30 mg Documented by: BLU Ferrous Sulfate (Ferrous Sulfate) 325 mg PO BIDMEALS [facility] Last Admin: 02/22/20 18:57 Dose: 325 mg Documented by: ADILENE Sodium Chloride (Normal Saline) 1,000 mls @ 125 mls/hr IV ASDIRECTED [facility] Last Admin: 02/23/20 04:00 Dose: 125 mls/hr Documented by: Infusion: 02/23/20 04:00 Dose: 125 mls/hr Documented by: Admin: 02/22/20 20:59 Dose: 125 mls/hr Documented by: Infusion: 02/22/20 20:59 Dose: 125 mls/hr Documented by: Admin: 02/22/20 13:02 Dose: 125 mls/hr Documented by: BLU Levothyroxine Sodium (Levothyroxine) 125 mcg PO DAILY@0600 [facility] Last Admin: 02/23/20 05:29 Dose: 125 mcg Documented by: REDDY Liraglutide (Victoza) 1.8 mg SUBCUT DAILY [facility] Multivitamins/Minerals/Vitamin C (Tab-A-Rashad) 1 tab PO DAILY@1200 [facility] Calcium Carbonate/Vitamin D3 500mg/200unit *Ptom 1 tab PO DAILY@1200 [facility] (Insulin Aspart [ (Novolog] 12 Units)) 12 units SUBCUT WITHLUNCH [facility] Non-Formulary Medication (Insulin Aspart [Novolog]) 14 units SUBCUT BIDMEALS [facility] Last Admin: 02/22/20 18:58 Dose: Not Given Documented by: ADILENE (Insulin Degludec [ Tresiba Flextouch U- 100] 28 Units) 28 units SUBCUT BEDTIME [facility] Last Admin: 02/22/20 20:57 Dose: 28 units Documented by: REDDY Ondansetron HCl (Zofran Odt) 4 mg PO Q4H PRN PRN Reason: nausea, able to take PO Ondansetron HCl (Zofran) 4 mg IVPUSH Q4H PRN PRN Reason: Nausea/Vomiting Last Admin: 02/22/20 23:21 Dose: 4 mg Documented by: REDDY Simvastatin (Zocor) 20 mg PO WITHDINNER [facility] Last Admin: 02/22/20 18:58 Dose: 20 mg Documented by: ADILENE Sodium Chloride (Saline Flush) 10 ml FLUSH ASDIRECTED PRN PRN Reason: Keep Vein Open Last Admin: 02/22/20 13:00 Dose: 10 ml Documented by: BLU Assessment/Plan Comment:: 1. Admit for observation. 2. IV fluids normal saline 3. Lovenox for VTE prophylaxis 4. Full code 5. Regular medications. 6. Diabetic diet checking Accu-Cheks twice a day 7. Low protein diet per dietary. 8. Up ad meryl. 9. CBC, Chem-12, d-dimer - Mortality Measure Prognosis:: Good
--- NOTE | 2020-02-23 07:54 | PCM.PN ---
- General Info Date of Service: 02/23/20 Admission Dx/Problem (Free Text): Patient was nauseated last night but feels much better today. She states her muscle aches are much improved. No abdominal pain no nausea or vomiting. More energy. Her urine is still a little bit dark colored but she is urinating. Her colostomy contents are normal. She denies fevers, chills, chest pain, shortness of breath. - Patient Data Vitals - Most Recent: Last Vital Signs Temp 97.8 F 02/23/20 05:40 Pulse 86 02/23/20 05:40 Resp 16 02/23/20 05:40 BP 117/69 02/23/20 05:40 Pulse Ox 99 02/23/20 05:40 Weight - Most Recent: 147 lb 14.4 oz I&O - Last 24 Hours: Intake & Output 02/22/20 02/23/20 02/23/20 22:59 06:59 14:59 Intake Total 1139 962 150 Output Total 50 100 200 Balance 1089 862 -50 Lab Results Last 24 Hours: Laboratory Results - last 24 hr 02/22/20 02/22/20 02/22/20 Range/Units 11:43 11:43 11:43 WBC 7.9 (3.0-10.3) x10-3/uL RBC 5.01 (3.60-5.20) x10(6)uL Hgb 14.1 (11.4-15.5) g/dL Hct 42.6 (34.2-48.2) % MCV 85.1 (76.7-100.5) fL MCH 28.3 (23.9-33.9) pg MCHC 33.2 (31.9-34.8) g/dL RDW 19.7 H (12.3-16.5) % Plt Count 452 (151-488) x10(3)uL MPV 6.9 L (7.1-12.4) fL Neut % (Auto) 74.7 (30.8-76.2) % Lymph % (Auto) 12.3 L (18.4-52.1) % Glenn % (Auto) 12.5 (4.4-15.7) % Eos % (Auto) 0.2 L (0.6-8.1) % Baso % (Auto) 0.3 (0.2-1.5) % Neut # (Auto) 5.9 (1.5-6.3) x10-3/uL Lymph # (Auto) 1.0 (1.0-4.4) x10-3/uL Glenn # (Auto) 1.0 (0.3-1.0) x10-3/uL Eos # (Auto) 0.0 (0.0-0.8) x10-3/uL Baso # (Auto) 0.0 (0.0-0.1) x10-3/uL D-Dimer, Quantitative 0.59 (0.0-0.59) mg/LFEU Sodium 123 L (135-145) mmol/L Potassium 3.9 D (3.5-5.3) mmol/L Chloride 84 L* (100-110) mmol/L Carbon Dioxide 24 (21-32) mmol/L BUN 97 H (7-18) mg/dL Creatinine 2.8 H* (0.55-1.02) mg/dL Est Cr Clr Drug Dosing TNP Estimated GFR (MDRD) 17 L (>60) BUN/Creatinine Ratio 34.6 H (9-20) Glucose 241 H (80-116) mg/dL POC Glucose (74-100) mg/dL Calcium 9.7 (8.6-10.2) mg/dL Total Bilirubin 0.4 (0.1-1.3) mg/dL AST 65 H D (5-25) IU/L ALT 119 H D (12-36) U/L Alkaline Phosphatase 105 (56-112) IU/L Troponin I (4.0-60.3) pg/mL Total Protein 8.0 (6.0-8.0) g/dL Albumin 3.9 (3.2-4.6) g/dL Globulin 4.1 g/dL Albumin/Globulin Ratio 1.0 TSH, Ultra Sensitive (0.36-3.74) IU/mL Urine Color (YELLOW) Urine Appearance (CLEAR) Urine pH (5.0-6.5) Ur Specific [place] (1.010-1.025) Urine Protein (NEGATIVE) mg/dL Urine Glucose (UA) (NORMAL) mg/dL Urine Ketones (NEGATIVE) mg/dL Urine Occult Blood (NEGATIVE) Urine Nitrite (NEGATIVE) Urine Bilirubin (NEGATIVE) Urine Urobilinogen (NEGATIVE) mg/dL Ur Leukocyte Esterase (NEGATIVE) Urine RBC (0-5) Urine WBC (0-5) Ur Squamous Epith Cells (NS,R,O) Urine Bacteria (NS) Ur Random Sodium mmol/L 02/22/20 02/22/20 02/22/20 Range/Units 11:43 13:46 13:46 WBC (3.0-10.3) x10-3/uL RBC (3.60-5.20) x10(6)uL Hgb (11.4-15.5) g/dL Hct (34.2-48.2) % MCV (76.7-100.5) fL MCH (23.9-33.9) pg MCHC (31.9-34.8) g/dL RDW (12.3-16.5) % Plt Count (151-488) x10(3)uL MPV (7.1-12.4) fL Neut % (Auto) (30.8-76.2) % Lymph % (Auto) (18.4-52.1) % Glenn % (Auto) (4.4-15.7) % Eos % (Auto) (0.6-8.1) % Baso % (Auto) (0.2-1.5) % Neut # (Auto) (1.5-6.3) x10-3/uL Lymph # (Auto) (1.0-4.4) x10-3/uL Glenn # (Auto) (0.3-1.0) x10-3/uL Eos # (Auto) (0.0-0.8) x10-3/uL Baso # (Auto) (0.0-0.1) x10-3/uL D-Dimer, Quantitative (0.0-0.59) mg/LFEU Sodium (135-145) mmol/L Potassium (3.5-5.3) mmol/L Chloride (100-110) mmol/L Carbon Dioxide (21-32) mmol/L BUN (7-18) mg/dL Creatinine (0.55-1.02) mg/dL Est Cr Clr Drug Dosing Estimated GFR (MDRD) (>60) BUN/Creatinine Ratio (9-20) Glucose (80-116) mg/dL POC Glucose (74-100) mg/dL Calcium (8.6-10.2) mg/dL Total Bilirubin (0.1-1.3) mg/dL AST (5-25) IU/L ALT (12-36) U/L Alkaline Phosphatase (56-112) IU/L Troponin I 16.0 (4.0-60.3) pg/mL Total Protein (6.0-8.0) g/dL Albumin (3.2-4.6) g/dL Globulin g/dL Albumin/Globulin Ratio TSH, Ultra Sensitive 6.37 H (0.36-3.74) IU/mL Urine Color Yellow (YELLOW) Urine Appearance Clear (CLEAR) Urine pH 5.0 (5.0-6.5) Ur Specific [place] 1.020 (1.010-1.025) Urine Protein Negative (NEGATIVE) mg/dL Urine Glucose (UA) Normal (NORMAL) mg/dL Urine Ketones Negative (NEGATIVE) mg/dL Urine Occult Blood Negative (NEGATIVE) Urine Nitrite Negative (NEGATIVE) Urine Bilirubin Negative (NEGATIVE) Urine Urobilinogen Normal (NEGATIVE) mg/dL Ur Leukocyte Esterase Small H (NEGATIVE) Urine RBC 0-5 (0-5) Urine WBC 5-10 H (0-5) Ur Squamous Epith Cells Few H (NS,R,O) Urine Bacteria Few H (NS) Ur Random Sodium 16 mmol/L 02/22/20 02/22/20 02/23/20 Range/Units 16:30 17:46 05:41 WBC (3.0-10.3) x10-3/uL RBC (3.60-5.20) x10(6)uL Hgb (11.4-15.5) g/dL Hct (34.2-48.2) % MCV (76.7-100.5) fL MCH (23.9-33.9) pg MCHC (31.9-34.8) g/dL RDW (12.3-16.5) % Plt Count (151-488) x10(3)uL MPV (7.1-12.4) fL Neut % (Auto) (30.8-76.2) % Lymph % (Auto) (18.4-52.1) % Glenn % (Auto) (4.4-15.7) % Eos % (Auto) (0.6-8.1) % Baso % (Auto) (0.2-1.5) % Neut # (Auto) (1.5-6.3) x10-3/uL Lymph # (Auto) (1.0-4.4) x10-3/uL Glenn # (Auto) (0.3-1.0) x10-3/uL Eos # (Auto) (0.0-0.8) x10-3/uL Baso # (Auto) (0.0-0.1) x10-3/uL D-Dimer, Quantitative (0.0-0.59) mg/LFEU Sodium 124 L (135-145) mmol/L Potassium (3.5-5.3) mmol/L Chloride (100-110) mmol/L Carbon Dioxide (21-32) mmol/L BUN (7-18) mg/dL Creatinine (0.55-1.02) mg/dL Est Cr Clr Drug Dosing Estimated GFR (MDRD) (>60) BUN/Creatinine Ratio (9-20) Glucose (80-116) mg/dL POC Glucose 173 H 122 H (74-100) mg/dL Calcium (8.6-10.2) mg/dL Total Bilirubin (0.1-1.3) mg/dL AST (5-25) IU/L ALT (12-36) U/L Alkaline Phosphatase (56-112) IU/L Troponin I (4.0-60.3) pg/mL Total Protein (6.0-8.0) g/dL Albumin (3.2-4.6) g/dL Globulin g/dL Albumin/Globulin Ratio TSH, Ultra Sensitive (0.36-3.74) IU/mL Urine Color (YELLOW) Urine Appearance (CLEAR) Urine pH (5.0-6.5) Ur Specific [place] (1.010-1.025) Urine Protein (NEGATIVE) mg/dL Urine Glucose (UA) (NORMAL) mg/dL Urine Ketones (NEGATIVE) mg/dL Urine Occult Blood (NEGATIVE) Urine Nitrite (NEGATIVE) Urine Bilirubin (NEGATIVE) Urine Urobilinogen (NEGATIVE) mg/dL Ur Leukocyte Esterase (NEGATIVE) Urine RBC (0-5) Urine WBC (0-5) Ur Squamous Epith Cells (NS,R,O) Urine Bacteria (NS) Ur Random Sodium mmol/L 02/23/20 Range/Units 06:30 WBC (3.0-10.3) x10-3/uL RBC (3.60-5.20) x10(6)uL Hgb (11.4-15.5) g/dL Hct (34.2-48.2) % MCV (76.7-100.5) fL MCH (23.9-33.9) pg MCHC (31.9-34.8) g/dL RDW (12.3-16.5) % Plt Count (151-488) x10(3)uL MPV (7.1-12.4) fL Neut % (Auto) (30.8-76.2) % Lymph % (Auto) (18.4-52.1) % Glenn % (Auto) (4.4-15.7) % Eos % (Auto) (0.6-8.1) % Baso % (Auto) (0.2-1.5) % Neut # (Auto) (1.5-6.3) x10-3/uL Lymph # (Auto) (1.0-4.4) x10-3/uL Glenn # (Auto) (0.3-1.0) x10-3/uL Eos # (Auto) (0.0-0.8) x10-3/uL Baso # (Auto) (0.0-0.1) x10-3/uL D-Dimer, Quantitative (0.0-0.59) mg/LFEU Sodium 128 L (135-145) mmol/L Potassium 3.7 (3.5-5.3) mmol/L Chloride 91 L D (100-110) mmol/L Carbon Dioxide 28 (21-32) mmol/L BUN 75 H D (7-18) mg/dL Creatinine 1.8 H (0.55-1.02) mg/dL Est Cr Clr Drug Dosing 25.47 Estimated GFR (MDRD) 28 L (>60) BUN/Creatinine Ratio 41.7 H (9-20) Glucose 140 H D (80-116) mg/dL POC Glucose (74-100) mg/dL Calcium 8.3 L (8.6-10.2) mg/dL Total Bilirubin (0.1-1.3) mg/dL AST (5-25) IU/L ALT (12-36) U/L Alkaline Phosphatase (56-112) IU/L Troponin I (4.0-60.3) pg/mL Total Protein (6.0-8.0) g/dL Albumin (3.2-4.6) g/dL Globulin g/dL Albumin/Globulin Ratio TSH, Ultra Sensitive (0.36-3.74) IU/mL Urine Color (YELLOW) Urine Appearance (CLEAR) Urine pH (5.0-6.5) Ur Specific [place] (1.010-1.025) Urine Protein (NEGATIVE) mg/dL Urine Glucose (UA) (NORMAL) mg/dL Urine Ketones (NEGATIVE) mg/dL Urine Occult Blood (NEGATIVE) Urine Nitrite (NEGATIVE) Urine Bilirubin (NEGATIVE) Urine Urobilinogen (NEGATIVE) mg/dL Ur Leukocyte Esterase (NEGATIVE) Urine RBC (0-5) Urine WBC (0-5) Ur Squamous Epith Cells (NS,R,O) Urine Bacteria (NS) Ur Random Sodium mmol/L Med Orders - Current: Current Medications Acetaminophen (Tylenol) 650 mg PO Q4H PRN PRN Reason: Pain (Mild 1-3)/fever Last Admin: 02/22/20 18:54 Dose: 650 mg Documented by: Amlodipine Besylate (Norvasc) 2.5 mg PO DAILY [facility] Aspirin (Halfprin) 81 mg PO DAILY@1200 [facility] Enoxaparin Sodium (Lovenox) 30 mg SUBCUT Q24H [facility] Last Admin: 02/22/20 13:10 Dose: 30 mg Documented by: Ferrous Sulfate (Ferrous Sulfate) 325 mg PO BIDMEALS [facility] Last Admin: 02/22/20 18:57 Dose: 325 mg Documented by: Sodium Chloride (Normal Saline) 1,000 mls @ 125 mls/hr IV ASDIRECTED [facility] Last Admin: 02/23/20 04:00 Dose: 125 mls/hr Documented by: Levothyroxine Sodium (Levothyroxine) 125 mcg PO DAILY@0600 [facility] Last Admin: 02/23/20 05:29 Dose: 125 mcg Documented by: Liraglutide (Victoza) 1.8 mg SUBCUT DAILY [facility] Multivitamins/Minerals/Vitamin C (Tab-A-Rashad) 1 tab PO DAILY@1200 [facility] Calcium Carbonate/Vitamin D3 500mg/200unit *Ptom 1 tab PO DAILY@1200 [facility] (Insulin Aspart [ (Novolog] 12 Units)) 12 units SUBCUT WITHLUNCH [facility] Non-Formulary Medication (Insulin Aspart [Novolog]) 14 units SUBCUT BIDMEALS [facility] Last Admin: 02/22/20 18:58 Dose: Not Given Documented by: (Insulin Degludec [ Tresiba Flextouch U- 100] 28 Units) 28 units SUBCUT BEDTIME [facility] Last Admin: 02/22/20 20:57 Dose: 28 units Documented by: Ondansetron HCl (Zofran Odt) 4 mg PO Q4H PRN PRN Reason: nausea, able to take PO Ondansetron HCl (Zofran) 4 mg IVPUSH Q4H PRN PRN Reason: Nausea/Vomiting Last Admin: 02/22/20 23:21 Dose: 4 mg Documented by: Simvastatin (Zocor) 20 mg PO WITHDINNER [facility] Last Admin: 02/22/20 18:58 Dose: 20 mg Documented by: Sodium Chloride (Saline Flush) 10 ml FLUSH ASDIRECTED PRN PRN Reason: Keep Vein Open Last Admin: 02/22/20 13:00 Dose: 10 ml Documented by: - Exam General: Alert, Oriented HEENT: Pupils Equal, Pupils Reactive Lungs: Clear to Auscultation, Normal Respiratory Effort Cardiovascular: Regular Rate, Regular Rhythm, No Murmurs Extremities: No Pedal Edema Sepsis Event Note - Evaluation Sepsis Screening Result: No Definite Risk - Focused Exam Vital Signs: Vital Signs Temp Pulse Resp BP Pulse Ox 02/23/20 05:40 97.8 F 86 16 117/69 99 02/23/20 02:20 97.5 F 75 16 123/64 100 02/22/20 20:45 98.1 F 88 16 118/69 97 - Problem List & Annotations (1) Chronic renal failure SNOMED Code(s): 55166394 Code(s): N18.9 - CHRONIC KIDNEY DISEASE, UNSPECIFIED Status: Acute Current Visit: Yes (2) Palliative care status SNOMED Code(s): 970678337 Code(s): Z51.5 - ENCOUNTER FOR PALLIATIVE CARE Status: Acute Current Visit: Yes (3) Acute hyponatremia SNOMED Code(s): 0220582 Code(s): E87.1 - HYPO-OSMOLALITY AND HYPONATREMIA Status: Acute Priority: Medium Current Visit: No (4) Acute renal injury SNOMED Code(s): 85586618, 57363776 Code(s): N17.9 - ACUTE KIDNEY FAILURE, UNSPECIFIED Status: Acute Priority: High Current Visit: No (5) Dehydration SNOMED Code(s): 82665023 Code(s): E86.0 - DEHYDRATION Status: Acute Current Visit: No - Problem List Review Problem List Initiated/Reviewed/Updated: Yes - My Orders Last 24 Hours: My Active Orders 02/22/20 11:21 Patient Status [ADT] Routine Blood Glucose Check, Bedside [RC] BIDMEALS May Shower [RC] .PRN Oxygen Therapy [RC] .PRN Up ad Ivette [RC] .PRN VTE/DVT Education [RC] .PRN Vital Signs [RC] QSHIFT Acetaminophen [TylenoL] 650 mg PO Q4H PRN Ondansetron [Zofran ODT] 4 mg PO Q4H PRN Sodium Chloride 0.9% [Saline Flush] 10 ml FLUSH ASDIRECTED PRN Peripheral IV Insertion Adult [OM.PC] Routine Resuscitation Status Routine 02/22/20 11:26 EKG 12 Lead [EK] Routine 02/22/20 11:30 Sodium Chloride 0.9% [Normal Saline] 1,000 ml IV ASDIRECTED 02/22/20 12:30 Enoxaparin [Lovenox] 30 mg SUBCUT Q24H 02/22/20 Dinner Protein Restricted Diet [DIET] 02/22/20 18:00 Ferrous Sulfate 325 mg PO BIDMEALS Insulin Aspart [NovoLOG] 14 units SUBCUT BIDMEALS Simvastatin [Zocor] 20 mg PO WITHDINNER 02/22/20 18:14 Ondansetron [Zofran] 4 mg IVPUSH Q4H PRN 02/22/20 21:00 Insulin Degludec [Tresiba Flextouch U-100] 28 units SUBCUT BEDTIME 02/23/20 06:00 Levothyroxine 125 mcg PO DAILY@0600 02/23/20 07:44 CORONAVIRUS COVID-19 KRYSTLE [MOLEC] Routine 02/23/20 07:45 Ambulate [RC] PER UNIT ROUTINE 02/23/20 09:00 Liraglutide [Victoza] 1.8 mg SUBCUT DAILY amLODIPine [Norvasc] 2.5 mg PO DAILY 02/23/20 12:00 Aspirin [Halfprin] 81 mg PO DAILY@1200 Calcium Carbonate/Vitamin D3 [Calcium 500-Vit D3 200 Caplet] 1 tab PO DAILY@1200 Insulin Aspart [NovoLOG] 12 units SUBCUT WITHLUNCH Multivitamins [Tab-A-Rashad] 1 tab PO DAILY@1200 - Plan Plan:: 1. Continue current care. Sodium is up to 120 and creatinine is down 1 point. This is very good. 2. Increase ambulation. 3. Recheck BMP at 4 PM today.
[2020-02-23] MEDS: Ferrous Sulfate 325 MG Tab *PTOM PO SCH ×2 (08:36→17:09)
[2020-02-23] MEDS: INSULIN ASPART 14 UNIT SUBCUT SCH ×2 (08:37→17:59)
[2020-02-23] MEDS: amLODIPine 5 MG Tab *PTOM PO SCH (08:51)
[2020-02-23] MEDS: LIRAGLUTIDE 0.6 MG/0.1 ML SUBCUT SCH (09:19)
[2020-02-23] MEDS ORDERED: VITAMIN D3 PO SCH (12:00)
[2020-02-23] MEDS ORDERED: Multivitamin Tab *PTOM PO SCH (12:00)
[2020-02-23] MEDS ORDERED: Aspirin 81 MG Tab.EC *PTOM PO SCH (12:00)
[2020-02-23] MEDS ORDERED: CALCIUM CARBONATE PO SCH (12:00)
[2020-02-23] MEDS: Enoxaparin 30 MG/0.3 ML Syringe SUBCUT SCH (12:06)
[2020-02-23] MEDS: Simvastatin 20 MG Tab *PTOM PO SCH (17:09)
[2020-02-23] MEDS: INSULIN DEGLUDEC 28 UNIT SUBCUT SCH (21:00)
[2020-02-24] MEDS: Sodium Chloride 0.9% 1,000 ML IV SCH (03:05)
[2020-02-24] MEDS: Levothyroxine 125 MCG Tab *PTOM PO SCH (05:23)
--- NOTE | 2020-02-24 07:56 | PCM.PN ---
- General Info Date of Service: 02/24/20 Admission Dx/Problem (Free Text): Patient states she feels really good. She has no nausea, vomiting, abdominal pain or leg pain. Eating and drinking fine. - Patient Data Vitals - Most Recent: Last Vital Signs Temp 97.3 F 02/24/20 03:00 Pulse 72 02/24/20 03:00 Resp 16 02/24/20 03:00 BP 118/62 02/24/20 03:00 Pulse Ox 98 02/24/20 03:00 Weight - Most Recent: 147 lb 14.4 oz I&O - Last 24 Hours: Intake & Output 02/23/20 02/24/20 02/24/20 22:59 06:59 14:59 Intake Total 825 1013 Balance 825 1013 Lab Results Last 24 Hours: Laboratory Results - last 24 hr 02/23/20 02/23/20 02/23/20 Range/Units 09:30 11:53 16:00 Sodium 131 L (135-145) mmol/L Potassium (3.5-5.3) mmol/L Chloride (100-110) mmol/L Carbon Dioxide (21-32) mmol/L BUN (7-18) mg/dL Creatinine (0.55-1.02) mg/dL Est Cr Clr Drug Dosing mL/min Estimated GFR (MDRD) (>60) BUN/Creatinine Ratio (9-20) Glucose (80-116) mg/dL POC Glucose 128 H (74-100) mg/dL Calcium (8.6-10.2) mg/dL SARS-CoV-2 RNA (KRYSTLE) Negative (NEGATIVE) 02/23/20 02/23/20 02/24/20 Range/Units 17:06 20:08 06:35 Sodium 137 (135-145) mmol/L Potassium 3.2 L (3.5-5.3) mmol/L Chloride 101 D (100-110) mmol/L Carbon Dioxide 27 (21-32) mmol/L BUN 33 H D (7-18) mg/dL Creatinine 1.2 H (0.55-1.02) mg/dL Est Cr Clr Drug Dosing 38.21 mL/min Estimated GFR (MDRD) 45 L (>60) BUN/Creatinine Ratio 27.5 H (9-20) Glucose 114 (80-116) mg/dL POC Glucose 137 H 106 H (74-100) mg/dL Calcium 7.6 L (8.6-10.2) mg/dL SARS-CoV-2 RNA (KRYSTLE) (NEGATIVE) Med Orders - Current: Current Medications Acetaminophen (Tylenol) 650 mg PO Q4H PRN PRN Reason: Pain (Mild 1-3)/fever Last Admin: 02/22/20 18:54 Dose: 650 mg Documented by: Amlodipine Besylate (Norvasc) 2.5 mg PO DAILY [facility] Last Admin: 02/23/20 08:51 Dose: 2.5 mg Documented by: Aspirin (Halfprin) 81 mg PO DAILY@1200 [facility] Last Admin: 02/23/20 12:03 Dose: 81 mg Documented by: Enoxaparin Sodium (Lovenox) 30 mg SUBCUT Q24H [facility] Last Admin: 02/23/20 12:06 Dose: 30 mg Documented by: Ferrous Sulfate (Ferrous Sulfate) 325 mg PO BIDMEALS [facility] Last Admin: 02/23/20 17:09 Dose: 325 mg Documented by: Sodium Chloride (Normal Saline) 1,000 mls @ 125 mls/hr IV ASDIRECTED [facility] Last Admin: 02/24/20 03:05 Dose: 125 mls/hr Documented by: Levothyroxine Sodium (Levothyroxine) 125 mcg PO DAILY@0600 [facility] Last Admin: 02/24/20 05:23 Dose: 125 mcg Documented by: Liraglutide (Victoza) 1.8 mg SUBCUT DAILY [facility] Last Admin: 02/23/20 09:19 Dose: 1.8 mg Documented by: Multivitamins/Minerals/Vitamin C (Tab-A-Rashad) 1 tab PO DAILY@1200 [facility] Last Admin: 02/23/20 12:04 Dose: 1 tab Documented by: Calcium Carbonate/Vitamin D3 500mg/200unit *Ptom 1 tab PO DAILY@1200 [facility] Last Admin: 02/23/20 12:02 Dose: 1 tab Documented by: (Insulin Aspart [ (Novolog] 12 Units)) 12 units SUBCUT WITHLUNCH [facility] Last Admin: 02/23/20 12:07 Dose: 12 units Documented by: Non-Formulary Medication (Insulin Aspart [Novolog]) 14 units SUBCUT BIDMEALS [facility] Last Admin: 02/23/20 17:59 Dose: 14 units Documented by: (Insulin Degludec [ Tresiba Flextouch U- 100] 28 Units) 28 units SUBCUT BEDTIME [facility] Last Admin: 02/23/20 21:00 Dose: Not Given Documented by: Ondansetron HCl (Zofran Odt) 4 mg PO Q4H PRN PRN Reason: nausea, able to take PO Ondansetron HCl (Zofran) 4 mg IVPUSH Q4H PRN PRN Reason: Nausea/Vomiting Last Admin: 02/22/20 23:21 Dose: 4 mg Documented by: Simvastatin (Zocor) 20 mg PO WITHDINNER [facility] Last Admin: 02/23/20 17:09 Dose: 20 mg Documented by: Sodium Chloride (Saline Flush) 10 ml FLUSH ASDIRECTED PRN PRN Reason: Keep Vein Open Last Admin: 02/22/20 13:00 Dose: 10 ml Documented by: - Exam General: Alert, Oriented Extremities: No Pedal Edema Sepsis Event Note - Evaluation Sepsis Screening Result: No Definite Risk - Focused Exam Vital Signs: Vital Signs Temp Pulse Resp BP Pulse Ox 02/24/20 03:00 97.3 F 72 16 118/62 98 02/23/20 20:00 98.1 F 73 16 117/63 98 - Problem List & Annotations (1) Chronic renal failure SNOMED Code(s): 19469522 Code(s): N18.9 - CHRONIC KIDNEY DISEASE, UNSPECIFIED Status: Acute Current Visit: Yes (2) Palliative care status SNOMED Code(s): 336713373 Code(s): Z51.5 - ENCOUNTER FOR PALLIATIVE CARE Status: Acute Current Visit: Yes (3) Acute hyponatremia SNOMED Code(s): 7933055 Code(s): E87.1 - HYPO-OSMOLALITY AND HYPONATREMIA Status: Acute Priority: Medium Current Visit: No (4) Acute renal injury SNOMED Code(s): 72964414, 43780477 Code(s): N17.9 - ACUTE KIDNEY FAILURE, UNSPECIFIED Status: Acute Priority: High Current Visit: No (5) Dehydration SNOMED Code(s): 83234652 Code(s): E86.0 - DEHYDRATION Status: Acute Current Visit: No (6) Hypokalemia SNOMED Code(s): 31072691 Code(s): E87.6 - HYPOKALEMIA Status: Acute Current Visit: Yes (7) Hypocalcemia SNOMED Code(s): 7182686 Code(s): E83.51 - HYPOCALCEMIA Status: Acute Current Visit: Yes - Problem List Review Problem List Initiated/Reviewed/Updated: Yes - My Orders Last 24 Hours: My Active Orders 02/23/20 07:45 Ambulate [RC] PER UNIT ROUTINE 02/23/20 09:00 Liraglutide [Victoza] 1.8 mg SUBCUT DAILY amLODIPine [Norvasc] 2.5 mg PO DAILY 02/23/20 12:00 Aspirin [Halfprin] 81 mg PO DAILY@1200 Calcium Carbonate/Vitamin D3 [Calcium 500-Vit D3 200 Caplet] 1 tab PO DAILY@1200 Insulin Aspart [NovoLOG] 12 units SUBCUT WITHLUNCH Multivitamins [Tab-A-Rashad] 1 tab PO DAILY@1200 02/23/20 12:37 Accu Check [Blood Glucose Check, Bedside] [] QIDACANDBED - Plan Plan:: 1. Charge to home. 2. Discussed fluids with electrolytes checked and was assumed to keep her sodium up. 3. Recheck in a week with BMP. Send a low dose of potassium home. She can take [id number] calcium.
--- NOTE | 2020-02-24 08:01 | PCM.DCSUM1 ---
Discharge Summary - Hospital Course Free Text/Narrative:: Hospital course-labs are checked and she was severely hyponatremic and acute upon chronic renal failure. D-dimer is negative. We hydrated her with normal saline at 125 mL an hour to bring up her sodium very slowly. Over 48 hours sodium came up very nicely to normal. Potassium dropped a little bit to 3.2. That was on the day of discharge and will send her home on some potassium. By day 2 patient symptoms a lot better she was able to eat and drink and her nausea vomiting and her leg pain went away. Kidney function improved markedly. We'll discharge to home and talked her about a renal diet with some sodium in to make sure she doesn't get hyponatremic again. I will recheck her in 1 week's a BMP. Brief History: This is 69-year-old diabetic with chronic renal failure. She's been having problems increased creatinine and dehydration. Sodium is been a little bit low. She does the clinic and she's very dehydrated, abdominal pain, achy all over. She denies fevers, chills, runny nose, chest pain, cough, shortness of breath. She's been in several times in received IV fluids. Nephrology is been followed also. She's failed outpatient treatment. Diagnosis: Stroke: No - Discharge Data Discharge Date: 02/24/20 Discharge Disposition: Home, Self-Care 01 Condition: Good - Referral to Home Health Primary Care Physician: Michael Medrano MD - Discharge Diagnosis/Problem(s) (1) Chronic renal failure SNOMED Code(s): 63265966 ICD Code: N18.9 - CHRONIC KIDNEY DISEASE, UNSPECIFIED Status: Acute Current Visit: Yes (2) Palliative care status SNOMED Code(s): 826964882 ICD Code: Z51.5 - ENCOUNTER FOR PALLIATIVE CARE Status: Acute Current Visit: Yes (3) Acute hyponatremia SNOMED Code(s): 6846513 ICD Code: E87.1 - HYPO-OSMOLALITY AND HYPONATREMIA Status: Acute Priority: Medium Current Visit: No (4) Acute renal injury SNOMED Code(s): 54579775, 43318135 ICD Code: N17.9 - ACUTE KIDNEY FAILURE, UNSPECIFIED Status: Acute Priority: High Current Visit: No (5) Dehydration SNOMED Code(s): 08933921 ICD Code: E86.0 - DEHYDRATION Status: Acute Current Visit: No (6) Hypokalemia SNOMED Code(s): 50897321 ICD Code: E87.6 - HYPOKALEMIA Status: Acute Current Visit: Yes (7) Hypocalcemia SNOMED Code(s): 7464328 ICD Code: E83.51 - HYPOCALCEMIA Status: Acute Current Visit: Yes - Patient Instructions Diet: Renal Diet Activity: As Tolerated Driving: May Drive Today Showering/Bathing: May Shower Notify Provider of: Nausea and/or Vomiting Other/Special Instructions: 1. Recheck with Dr. Medrano in 1 week with a BMP. - Discharge Plan Prescriptions/Med Rec: Potassium Chloride 20 meq PO DAILY #10 tablet.er Home Medications: Home Meds Aspirin [Halfprin] 81 mg PO DAILY@1200 02/06/15 [History] Multivitamin [Multivitamins] 1 tab PO DAILY@1200 02/06/15 [History] Simvastatin 20 mg PO WITHDINNER 02/06/15 [History] Liraglutide [Victoza] 1.8 mg SUBCUT DAILY 10/01/16 [History] Levothyroxine 125 mcg PO ACBREAKFAST #30 tab 10/02/16 [Rx] Calcium Carbonate/Vitamin D3 [Calcium 500-Vit D3 200 Caplet] 1 tab PO DAILY@1200 02/22/20 [History] Ferrous Sulfate 325 mg PO BIDMEALS 02/22/20 [History] Insulin Aspart [NovoLOG] 12 units SUBCUT WITHLUNCH 02/22/20 [History] Insulin Aspart [NovoLOG] 14 units SUBCUT BIDMEALS 02/22/20 [History] Insulin Degludec [Tresiba Flextouch U-100] 28 units SUBCUT BEDTIME 02/22/20 [History] amLODIPine [Norvasc] 2.5 mg PO DAILY 02/22/20 [History] Potassium Chloride 20 meq PO DAILY #10 tablet.er 02/24/20 [Rx] Patient Handouts: Venous Thromboembolism Prevention - Discharge Summary/Plan Comment DC Time >30 min.: No - Patient Data Vitals - Most Recent: Last Vital Signs Temp 97.3 F 02/24/20 03:00 Pulse 72 02/24/20 03:00 Resp 16 02/24/20 03:00 BP 118/62 02/24/20 03:00 Pulse Ox 98 02/24/20 03:00 Weight - Most Recent: 147 lb 14.4 oz I&O - Last 24 hours: Intake & Output 02/23/20 02/24/20 02/24/20 22:59 06:59 14:59 Intake Total 825 1013 Balance 825 1013 Lab Results - Last 24 hrs: Laboratory Results - last 24 hr 02/23/20 02/23/20 02/23/20 Range/Units 09:30 11:53 16:00 Sodium 131 L (135-145) mmol/L Potassium (3.5-5.3) mmol/L Chloride (100-110) mmol/L Carbon Dioxide (21-32) mmol/L BUN (7-18) mg/dL Creatinine (0.55-1.02) mg/dL Est Cr Clr Drug Dosing mL/min Estimated GFR (MDRD) (>60) BUN/Creatinine Ratio (9-20) Glucose (80-116) mg/dL POC Glucose 128 H (74-100) mg/dL Calcium (8.6-10.2) mg/dL SARS-CoV-2 RNA (KRYSTLE) Negative (NEGATIVE) 02/23/20 02/23/20 02/24/20 Range/Units 17:06 20:08 06:35 Sodium 137 (135-145) mmol/L Potassium 3.2 L (3.5-5.3) mmol/L Chloride 101 D (100-110) mmol/L Carbon Dioxide 27 (21-32) mmol/L BUN 33 H D (7-18) mg/dL Creatinine 1.2 H (0.55-1.02) mg/dL Est Cr Clr Drug Dosing 38.21 mL/min Estimated GFR (MDRD) 45 L (>60) BUN/Creatinine Ratio 27.5 H (9-20) Glucose 114 (80-116) mg/dL POC Glucose 137 H 106 H (74-100) mg/dL Calcium 7.6 L (8.6-10.2) mg/dL SARS-CoV-2 RNA (KRYSTLE) (NEGATIVE) Med Orders - Current: Current Medications Acetaminophen (Tylenol) 650 mg PO Q4H PRN PRN Reason: Pain (Mild 1-3)/fever Last Admin: 02/22/20 18:54 Dose: 650 mg Documented by: Amlodipine Besylate (Norvasc) 2.5 mg PO DAILY HAWK Last Admin: 02/23/20 08:51 Dose: 2.5 mg Documented by: Aspirin (Halfprin) 81 mg PO DAILY@1200 [facility] Last Admin: 02/23/20 12:03 Dose: 81 mg Documented by: Enoxaparin Sodium (Lovenox) 30 mg SUBCUT Q24H [facility] [place] Last Admin: 02/23/20 12:06 Dose: 30 mg Documented by: Ferrous Sulfate (Ferrous Sulfate) 325 mg PO BIDMEALS [facility] [place] Last Admin: 02/23/20 17:09 Dose: 325 mg Documented by: Sodium Chloride (Normal Saline) 1,000 mls @ 125 mls/hr IV ASDIRECTED [facility] [place] Last Admin: 02/24/20 03:05 Dose: 125 mls/hr Documented by: Levothyroxine Sodium (Levothyroxine) 125 mcg PO DAILY@0600 [facility] [place] Last Admin: 02/24/20 05:23 Dose: 125 mcg Documented by: Liraglutide (Victoza) 1.8 mg SUBCUT DAILY [facility] Last Admin: 02/23/20 09:19 Dose: 1.8 mg Documented by: Multivitamins/Minerals/Vitamin C (Tab-A-Rashad) 1 tab PO DAILY@1200 [facility] [place] Last Admin: 02/23/20 12:04 Dose: 1 tab Documented by: Calcium Carbonate/Vitamin D3 500mg/200unit *Ptom 1 tab PO DAILY@1200 [facility] Last Admin: 02/23/20 12:02 Dose: 1 tab Documented by: (Insulin Aspart [ (Novolog] 12 Units)) 12 units SUBCUT WITHLUNCH [facility] [place] Last Admin: 02/23/20 12:07 Dose: 12 units Documented by: Non-Formulary Medication (Insulin Aspart [Novolog]) 14 units SUBCUT BIDMEALS [facility] [place] Last Admin: 02/23/20 17:59 Dose: 14 units Documented by: (Insulin Degludec [ Tresiba Flextouch U- 100] 28 Units) 28 units SUBCUT BEDTIME [facility] [place] Last Admin: 02/23/20 21:00 Dose: Not Given Documented by: Ondansetron HCl (Zofran Odt) 4 mg PO Q4H PRN PRN Reason: nausea, able to take PO Ondansetron HCl (Zofran) 4 mg IVPUSH Q4H PRN PRN Reason: Nausea/Vomiting Last Admin: 02/22/20 23:21 Dose: 4 mg Documented by: Simvastatin (Zocor) 20 mg PO WITHJAY [facility] [place] Last Admin: 02/23/20 17:09 Dose: 20 mg Documented by: Sodium Chloride (Saline Flush) 10 ml FLUSH ASDIRECTED PRN PRN Reason: Keep Vein Open Last Admin: 02/22/20 13:00 Dose: 10 ml Documented by:
[2020-02-24] MEDS: Ferrous Sulfate 325 MG Tab *PTOM PO SCH (08:19)
[2020-02-24] MEDS: amLODIPine 5 MG Tab *PTOM PO SCH (08:20)
[2020-02-24] MEDS: INSULIN ASPART 14 UNIT SUBCUT SCH (08:22)
[2020-02-24] MEDS: LIRAGLUTIDE 0.6 MG/0.1 ML SUBCUT SCH (08:23)
[2020-02-24 08:25] VITALS: BP 117/57
[2020-02-24 10:36] VITALS: PULSE 68
== END 2020-02-24 10:20 | disposition home or self-care (01) ==
LOC: INTOOBSV 11:03 → FB.MS 11:03
PROVIDERS: ADMIT Family Medicine; ATTEND Family Medicine
DX: E11.22 Type 2 diabetes mellitus with diabetic chronic kidney disease (principal); N18.9 Chronic kidney disease, unspecified; E86.0 Dehydration; E78.00 Pure hypercholesterolemia, unspecified; N17.9 Acute kidney failure, unspecified; E03.9 Hypothyroidism, unspecified; E66.9 Obesity, unspecified; E87.1 Hypo-osmolality and hyponatremia; E83.51 Hypocalcemia; Z20.822 Contact with and (suspected) exposure to COVID-19; Z79.890 Hormone replacement therapy; Z79.82 Long term (current) use of aspirin; Z79.899 Other long term (current) drug therapy; Z79.4 Long term (current) use of insulin; Z98.890 Other specified postprocedural states
CPT/HCPCS: 36415; 76770; 80048; 80053; 81001; 82962; 84295; 84300; 84443; 84484; 85025; 85379; 93005; 96372; 96374; A9270-GY; G0378; G0379; J1650; J2405; J7030; U0002

== ENCOUNTER 2020-09-13 06:44 | Day surgery (SDC) | payer MEDICARE, OTHER ==
[2020-09-13] MEDS ORDERED: Lactated Ringers 1,000 ML IV SCH (06:45)
[2020-09-13] MEDS ORDERED: Dexamethasone 4 MG/ML 5 ML MDV IVPUSH ONE (06:45)
[2020-09-13] MEDS ORDERED: Dexmedetomidine 200 MCG/2 ML SDV IV ONE (06:45)
[2020-09-13] MEDS ORDERED: Propofol 200 MG/20 ML SDV IV ONE (06:45)
[2020-09-13] MEDS ORDERED: Lidocaine 2% 5 ML SDV INJECT ONE (06:45)
[2020-09-13] MEDS ORDERED: Flumazenil 0.1 MG/ML 5 ML MDV IV ONE (06:45)
[2020-09-13] MEDS ORDERED: diphenhydrAMINE 50 MG/ML SDV IVPUSH ONE (06:45)
[2020-09-13] MEDS ORDERED: Sodium Chloride 0.9% 10 ML Syringe FLUSH PRN (06:45)
[2020-09-13] MEDS ORDERED: Ondansetron 4 MG/2 ML SDV IVPUSH ONE (06:45)
[2020-09-13] MEDS ORDERED: Midazolam 1 MG/ML 2 ML SDV IV ONE (06:45)
[2020-09-13 07:26] VITALS: PULSE 85
[2020-09-13] MEDS ORDERED: acetaZOLAMIDE 500 MG Cap.ER PO ONE (08:30)
[2020-09-13 09:00] VITALS: BP 99/59
--- NOTE | 2020-09-14 14:01 | PCM.SN.2 ---
- Free Text/Narrative Note: Please correct the following dosages given: Precedex 28 mcgs (not 7 cc's) Romazicon 0.1 mgs (not 1 mg) Thank you Shala
--- NOTE | 2020-09-14 16:09 | OR ---
DATE OF OPERATION: 09/13/2020 SURGEON: Lina Colon MD PREOPERATIVE DIAGNOSIS: Visually significant cataract, right eye. POSTOPERATIVE DIAGNOSIS: Visually significant cataract, right eye. PROCEDURES PERFORMED: Phacoemulsification with intraocular lens placement, right eye. ASSISTANTS: None. ANESTHESIA: Local with sedation. COMPLICATIONS: None. BLOOD LOSS: None. IMPLANTS: A pre-loaded TRA ZCB00 23.0 diopter lens implanted. CDE: 3.09. DESCRIPTION OF PROCEDURE: After risks and benefits were reviewed with the patient, consent was obtained in the preoperative area, and the operative eye was marked with a surgical pen. In the preoperative area, a pledget was used to dilate the pupil consisting of a mixture of phenylephrine 10%, cyclopentolate 2%, moxifloxacin 0.5%, and bupivacaine 0.75%. The patient was taken to the operating room, where a time-out was performed, and the patient was placed under monitored anesthesia care. Topical tetracaine was used for anesthesia. The operative eye was prepped and draped for ophthalmic surgery, and the microscope was brought into position and focused. A paracentesis incision was made, followed by injection of preservative-free 1% lidocaine into the anterior chamber, followed by injection of Viscoat into the anterior chamber. A microkeratome blade was used to make a corneal limbal incision temporally. A cystotome was used to make the beginning of the capsulorrhexis, which was carried around 360 degrees in a curvilinear fashion using Utrata forceps. A Hernández cannula with BSS was used to hydrodissect and hydrodelineate the nucleus. The nucleus was removed in a divide and conquer manner using phacoemulsification. Irrigation and aspiration were used to remove the remaining cortical material. Provisc was used to inflate the capsular bag, and a pre-loaded TRA ZCB00 23.0 diopter lens, serial number [id number] was injected into the capsular bag. A Sinskey hook was used to position and center the lens. Of note, the patient had significant jerky movements throughout the surgery requiring propofol and Precedex, and we had to go back and tape her head in the middle of the surgery and 2 people had to hold her legs and her hands to keep her from moving. Next, irrigation and aspiration was used to remove any remaining viscoelastic and cortical material from the anterior chamber. BSS on a cannula was used to inflate the anterior chamber and hydrate the wound. The wound was checked and found to be watertight. 1 mg of Moxifloxacin was injected into the anterior chamber. Drapes were removed and the eye was cleaned. A drop of brimonidine 0.2% and a drop of TobraDex was placed. The eye was shielded, and the patient was taken to the recovery room in stable condition. /[id number] AGUS/MERLYN
== END 2020-09-13 10:40 | disposition home or self-care (01) ==
LOC: FB.SDS 06:44
PROVIDERS: ATTEND Ophthalmology
DX: E11.36 Type 2 diabetes mellitus with diabetic cataract (principal); H25.813 Combined forms of age-related cataract, bilateral; E11.3293 Type 2 diabetes mellitus with mild nonproliferative diabetic retinopathy without macular edema, bilateral; H04.123 Dry eye syndrome of bilateral lacrimal glands; E03.9 Hypothyroidism, unspecified; Z79.899 Other long term (current) drug therapy; Z79.890 Hormone replacement therapy; Z88.8 Allergy status to other drugs, medicaments and biological substances
CPT/HCPCS: 00142; 66984; 82947; A9270; J1100; J1200; J2250; J2405; J2704; J3490; J7120; V2632

== ENCOUNTER 2020-09-27 09:33 | Day surgery (SDC) | payer MEDICARE, OTHER ==
[2020-09-27] MEDS ORDERED: Propofol 200 MG/20 ML SDV IV ONE (09:34)
[2020-09-27] MEDS ORDERED: Lidocaine 2% 5 ML SDV INJECT ONE (09:34)
[2020-09-27] MEDS ORDERED: Ondansetron 4 MG/2 ML SDV IVPUSH ONE (09:34)
[2020-09-27] MEDS ORDERED: Citric Acid/Sodium Citrate Solution 30 ML Cup PO ONE (09:34)
[2020-09-27] MEDS ORDERED: Dexamethasone 4 MG/ML 5 ML MDV IVPUSH ONE (09:34)
[2020-09-27] MEDS ORDERED: Sodium Chloride 0.9% 10 ML Syringe FLUSH PRN (10:00)
[2020-09-27] MEDS ORDERED: Lactated Ringers 1,000 ML IV SCH (10:00)
[2020-09-27] MEDS ORDERED: acetaZOLAMIDE 500 MG Cap.ER PO ONE (12:00)
[2020-09-27 12:12] VITALS: PULSE 68
[2020-09-27 12:13] VITALS: BP 109/55
--- NOTE | 2020-09-27 13:23 | OR ---
DATE OF OPERATION: 09/27/2020 SURGEON: Lina Colon MD PREOPERATIVE DIAGNOSIS: Visually significant cataract, left eye. POSTOPERATIVE DIAGNOSIS: Visually significant cataract, left eye. PROCEDURES PERFORMED: Phacoemulsification with intraocular lens placement, left eye. ASSISTANTS: None. ANESTHESIA: LMA general anesthesia with local. COMPLICATIONS: None. BLOOD LOSS: None. IMPLANTS: A pre-loaded TRA DCB00 23.0 diopter lens implanted. CDE: 3.18. DESCRIPTION OF PROCEDURE: After risks and benefits were reviewed with the patient, consent was obtained in the preoperative area, and the operative eye was marked with a surgical pen. In the preoperative area, a pledget was used to dilate the pupil consisting of a mixture of phenylephrine 10%, cyclopentolate 2%, moxifloxacin 0.5%, and bupivacaine 0.75%. The patient was taken to the operating room, where a time-out was performed, and due to the patient's preference and her previous movement during the last surgery, she was placed under general LMA anesthesia. Topical tetracaine was used for anesthesia. The operative eye was prepped and draped for ophthalmic surgery, and the microscope was brought into position and focused. A paracentesis incision was made, followed by injection of preservative-free 1% lidocaine into the anterior chamber, followed by injection of Viscoat into the anterior chamber. A microkeratome blade was used to make a corneal limbal incision temporally. A cystotome was used to make the beginning of the capsulorrhexis, which was carried around 360 degrees in a curvilinear fashion using Utrata forceps. A Hernández cannula with BSS was used to hydrodissect and hydrodelineate the nucleus. The nucleus was removed in a divide and conquer manner using phacoemulsification. Irrigation and aspiration were used to remove the remaining cortical material. Provisc was used to inflate the capsular bag, and a pre-loaded TRA DCB00 23.0 diopter lens, serial number [id number] was injected into the capsular bag. A Sinskey hook was used to position and center the lens. Next, irrigation and aspiration was used to remove any remaining viscoelastic and cortical material from the anterior chamber. BSS on a cannula was used to inflate the anterior chamber and hydrate the wound. The wound was checked and found to be watertight. 1 mg of Moxifloxacin was injected into the anterior chamber. Drapes were removed and the eye was cleaned. A drop of brimonidine 0.2% and a drop of TobraDex was placed. The eye was shielded, and the patient was awoken from anesthesia and taken to the recovery room in stable condition. /[id number] AGUS/MERLYN
== END 2020-09-27 12:39 | disposition home or self-care (01) ==
LOC: FB.SDS 09:33
PROVIDERS: ATTEND Ophthalmology
DX: E11.36 Type 2 diabetes mellitus with diabetic cataract (principal); H25.813 Combined forms of age-related cataract, bilateral; E11.3293 Type 2 diabetes mellitus with mild nonproliferative diabetic retinopathy without macular edema, bilateral; H04.123 Dry eye syndrome of bilateral lacrimal glands; Z79.899 Other long term (current) drug therapy; Z88.8 Allergy status to other drugs, medicaments and biological substances; Z79.4 Long term (current) use of insulin
CPT/HCPCS: 00142; 66984; A9270; J1100; J2405; J2704; J7120; V2632

== ENCOUNTER 2021-04-01 17:48 | Emergency (ER) | payer MEDICARE, OTHER ==
[2021-04-01] MEDS ORDERED: Ondansetron 4 MG Tab.DIS PO ONE (18:38)
[2021-04-01] MEDS ORDERED: Morphine 10 MG/ML SDV IM ONE (18:38)
[2021-04-01] MEDS ORDERED: Gabapentin 300 MG Cap PO ONE (18:38)
[2021-04-01 19:06] VITALS: BP 144/84; PULSE 98
== END 2021-04-01 19:45 | disposition home or self-care (01) ==
LOC: FB.ED 17:48
DX: M54.16 Radiculopathy, lumbar region (principal); E78.00 Pure hypercholesterolemia, unspecified; I12.9 Hypertensive chronic kidney disease with stage 1 through stage 4 chronic kidney disease, or unspecified chronic kidney disease; E11.22 Type 2 diabetes mellitus with diabetic chronic kidney disease; N18.9 Chronic kidney disease, unspecified; E03.9 Hypothyroidism, unspecified; E66.9 Obesity, unspecified; Z68.25 Body mass index [BMI] 25.0-25.9, adult; Z88.8 Allergy status to other drugs, medicaments and biological substances; Z79.82 Long term (current) use of aspirin; Z79.4 Long term (current) use of insulin; Z79.899 Other long term (current) drug therapy
CPT/HCPCS: 96372; 99282; A9270; J2270; Q0162

== ENCOUNTER 2022-08-28 13:32 | Emergency (ER) | payer MEDICARE, OTHER ==
[2022-08-28 14:20] LABS: BASOPHILS PERCENT AUTO 0.3 % (0.2-1.5); EOSINOPHILS ABSOLUTE AUTO 0.1 x10-3/uL (0.0-0.8); HEMOGLOBIN 11.5 g/dL (11.4-15.5); LYMPHOCYTES ABSOLUTE AUTO 1.2 x10-3/uL (1.0-4.4); MEAN PLATELET VOLUME 7.4 fL (7.1-12.4); MONOCYTES ABSOLUTE AUTO 1.2 x10-3/uL (0.3-1.0); RED CELL DISTRIBUTION WIDTH 15.7 % (12.3-16.5)
[2022-08-28 14:22] LABS: EOSINOPHILS PERCENT AUTO 0.9 % (0.6-8.1); HEMATOCRIT 34.9 % (34.2-48.2); LYMPHOCYTES PERCENT AUTO 15.6 % (18.4-52.1); MEAN CORPUSCULAR HEMOGLOBIN 29.2 pg (23.9-33.9); MEAN CORPUSCULAR HGB CONC 32.9 g/dL (31.9-34.8); MEAN CORPUSCULAR VOLUME 88.9 fL (76.7-100.5); MONOCYTES PERCENT AUTO 15.2 % (4.4-15.7); NEUTROPHILS ABSOLUTE AUTO 5.4 x10-3/uL (1.5-6.3); PLATELET COUNT,PLT 241 x10(3)uL (151-488); RED BLOOD CELL COUNT 3.93 x10(6)uL (3.60-5.20)
[2022-08-28 14:29] LABS: BLOOD UREA NITROGEN,BUN 53 mg/dL (7-18); BUN/CREATININE RATIO 27.9 (9-20); CALCIUM 9.7 mg/dL (8.6-10.2); CARBON DIOXIDE,CO2 19 mmol/L (21-32); CHLORIDE,CL 102 mmol/L (100-110); CREATININE 1.9 mg/dL (0.55-1.02); EST CRCL DRUG DOSING (CG) 23.11 mL/min; ESTIMATED GFR 28 mL/min (>60); GLUCOSE RANDOM 215 mg/dL (80-116); POTASSIUM,K 4.9 mmol/L (3.5-5.3); SODIUM,NA 134 mmol/L (135-145)
[2022-08-28 14:34] LABS: HEMOGLOBIN A1C 6.6 % (<5.7)
[2022-08-28 14:36] LABS: A/G RATIO 0.9; ALANINE AMINOTRANSFERASE,ALT 31 U/L (12-36); ALBUMIN 3.2 g/dL (3.2-4.6); ALKALINE PHOSPHATASE 63 IU/L (56-112); ASPARTATE AMNIOTRANSFERASE,AST 31 IU/L (5-25); BILIRUBIN TOTAL 0.4 mg/dL (0.1-1.3); PROTEIN TOTAL,TP 6.8 g/dL (6.0-8.0); TROPONIN I 6.7 pg/mL (4.0-60.3)
[2022-08-28 14:38] LABS: C-REACTIVE PROTEIN 6.2 mg/dL (0.5-0.9)
[2022-08-28] MEDS ORDERED: Sodium Chloride 0.9% 1,000 ML IV ONE (14:55)
[2022-08-28] MEDS ORDERED: Ondansetron 4 MG/2 ML SDV IV PRN (15:13)
[2022-08-28] MEDS ORDERED: Dextrose 5%-0.45% NaCl 1,000 ML IV SCH (15:15)
[2022-08-28 15:42] LABS: BILIRUBIN,URINE NEGATIVE (NEGATIVE); GLUCOSE,URINE NORMAL (NORMAL); KETONES,URINE NEGATIVE (NEGATIVE); LEUKOCYTE ESTERASE,URINE NEGATIVE (NEGATIVE); NITRITE,URINE NEGATIVE (NEGATIVE); OCCULT BLOOD,URINE NEGATIVE (NEGATIVE); PROTEIN,URINE NEGATIVE (NEGATIVE); UROBILINOGEN,URINE NORMAL (NEGATIVE)
[2022-08-28 16:03] LABS: APPEARANCE,URINE CLEAR (CLEAR); BACTERIA,URINE RARE (NS); COLOR,URINE YELLOW (YELLOW); RBC,URINE 0-5 (0-5); SQUAMOUS EPITHELIAL CELLS,UR RARE (NS,R,O); WBC,URINE 0-5 (0-5)
[2022-08-28] MEDS: Ampicillin/Sulbactam Na 3 GM in Sodium Chloride 0.9% 100 ML IV SCH (16:46)
[2022-08-28] MEDS ORDERED: Magnesium Sulfate/Water 2 GM in Premix Bag 1 BAG IV ONE (17:00)
[2022-08-28] MEDS ORDERED: Sodium Chloride 0.9% 1,000 ML IV SCH ×2 (17:30→17:45)
[2022-08-28] MEDS ORDERED: Gabapentin 300 MG Cap PO PRN (17:38)
[2022-08-28] MEDS ORDERED: [UNRECOGNIZED DRUG - OTHER] TOP PRN (17:40)
[2022-08-28] MEDS ORDERED: Enoxaparin 40 MG/0.4 ML Syringe SUBCUT SCH (17:45)
[2022-08-28] MEDS ORDERED: Ferrous Sulfate 325 MG Tab PO SCH (18:00)
[2022-08-28] MEDS: Sodium Chloride 0.9% 1,000 ML IV SCH (18:00)
[2022-08-28] MEDS ORDERED: Enoxaparin 30 MG/0.3 ML Syringe SUBCUT SCH (20:30)
[2022-08-28] MEDS ORDERED: FERROUS SULFATE PO SCH (20:45)
[2022-08-28] MEDS ORDERED: Acetaminophen 650 MG Tab.ER PO SCH (21:00)
[2022-08-28] MEDS ORDERED: INSULIN DEGLUDEC SUBCUT SCH (21:00)
[2022-08-28] MEDS ORDERED: Simvastatin 20 MG Tab **OWN MED PO SCH (21:00)
[2022-08-28] MEDS: PROTEASE PO SCH (21:13)
[2022-08-28] MEDS: AMYLASE PO SCH (21:13)
[2022-08-28] MEDS: LIPASE PO SCH (21:13)
[2022-08-28] MEDS: Acetaminophen 325 MG Tab PO PRN (22:30)
[2022-08-29] MEDS: Sodium Chloride 0.9% 1,000 ML IV SCH (02:06)
[2022-08-29] MEDS: Acetaminophen 325 MG Tab PO PRN (03:52)
[2022-08-29] MEDS: Ampicillin/Sulbactam Na 3 GM in Sodium Chloride 0.9% 100 ML IV SCH (03:53)
[2022-08-29 06:38] LABS: BASOPHILS PERCENT AUTO 0.7 % (0.2-1.5); EOSINOPHILS ABSOLUTE AUTO 0.2 x10-3/uL (0.0-0.8); EOSINOPHILS PERCENT AUTO 3.5 % (0.6-8.1); HEMATOCRIT 29.5 % (34.2-48.2); HEMOGLOBIN 10.2 g/dL (11.4-15.5); LYMPHOCYTES ABSOLUTE AUTO 1.1 x10-3/uL (1.0-4.4); LYMPHOCYTES PERCENT AUTO 24.5 % (18.4-52.1); MEAN CORPUSCULAR HGB CONC 34.7 g/dL (31.9-34.8); MEAN CORPUSCULAR VOLUME 89.3 fL (76.7-100.5); MEAN PLATELET VOLUME 7.3 fL (7.1-12.4); MONOCYTES ABSOLUTE AUTO 0.6 x10-3/uL (0.3-1.0); MONOCYTES PERCENT AUTO 12.7 % (4.4-15.7); NEUTROPHILS ABSOLUTE AUTO 2.7 x10-3/uL (1.5-6.3); NEUTROPHILS PERCENT AUTO 58.6 % (30.8-76.2); PLATELET COUNT,PLT 187 x10(3)uL (151-488); RED CELL DISTRIBUTION WIDTH 16.2 % (12.3-16.5); WHITE BLOOD CELL COUNT,WBC 4.5 x10-3/uL (3.0-10.3)
[2022-08-29 06:43] LABS: BLOOD UREA NITROGEN,BUN 40 mg/dL (7-18); BUN/CREATININE RATIO 28.6 (9-20); CALCIUM 8.2 mg/dL (8.6-10.2); CARBON DIOXIDE,CO2 20 mmol/L (21-32); CHLORIDE,CL 110 mmol/L (100-110); CREATININE 1.4 mg/dL (0.55-1.02); EST CRCL DRUG DOSING (CG) 31.37 mL/min; ESTIMATED GFR 40 mL/min (>60); GLUCOSE RANDOM 93 mg/dL (80-116); MAGNESIUM 1.9 mg/dL (1.8-2.5); POTASSIUM,K 3.6 mmol/L (3.5-5.3); SODIUM,NA 140 mmol/L (135-145)
[2022-08-29] MEDS: LIPASE PO SCH (08:45)
[2022-08-29] MEDS: PROTEASE PO SCH (08:45)
[2022-08-29] MEDS: AMYLASE PO SCH (08:45)
[2022-08-29] MEDS: LIRAGLUTIDE 18 MG/3 ML SUBCUT SCH ×2 (08:48→09:00)
[2022-08-29] MEDS ORDERED: Levothyroxine 100 MCG Tab *PTOM PO SCH (09:00)
[2022-08-29] MEDS ORDERED: Calcitriol 0.25 MCG Cap *PTOM PO SCH (09:00)
[2022-08-29 11:50] VITALS: BP 109/64; PULSE 87
[2022-08-29] MEDS ORDERED: Calcium Carbonate 500 MG Tablet PO SCH (12:00)
[2022-08-29] MEDS ORDERED: Multivitamin Tab PO SCH (12:00)
[2022-08-29] MEDS ORDERED: Enoxaparin 30 MG/0.3 ML Syringe SUBCUT SCH (21:00)
== END 2022-08-29 11:45 | disposition home or self-care (01) ==
LOC: FB.ED 13:32 → FB.MS 15:06
PROVIDERS: ADMIT Emergency Medicine; ATTEND Family Medicine
DX: K94.13 Enterostomy malfunction (principal); I12.9 Hypertensive chronic kidney disease with stage 1 through stage 4 chronic kidney disease, or unspecified chronic kidney disease; E11.22 Type 2 diabetes mellitus with diabetic chronic kidney disease; N18.9 Chronic kidney disease, unspecified; N17.9 Acute kidney failure, unspecified; E86.0 Dehydration; R15.9 Full incontinence of feces; L98.8 Other specified disorders of the skin and subcutaneous tissue; L03.114 Cellulitis of left upper limb; E83.42 Hypomagnesemia; R79.82 Elevated C-reactive protein (CRP); E03.9 Hypothyroidism, unspecified; E66.9 Obesity, unspecified; Z68.23 Body mass index [BMI] 23.0-23.9, adult; Z88.8 Allergy status to other drugs, medicaments and biological substances; Z79.82 Long term (current) use of aspirin; Z79.4 Long term (current) use of insulin; Z79.899 Other long term (current) drug therapy; E78.00 Pure hypercholesterolemia, unspecified; M19.90 Unspecified osteoarthritis, unspecified site
CPT/HCPCS: 36415; 71046; 74019; 80048; 80053; 81001; 82947; 83036; 83605; 83735; 84484; 85025; 86140; 93005; 93010; 96360; 96361; 96365; 96366; 96367; 99222; 99238; 99284-25; 99285; A9270-GY; G0378; J0295; J1650; J3475; J3490; J7030; J7042

== ENCOUNTER 2022-09-03 19:53 | Emergency (ER) | payer MEDICARE, OTHER ==
[2022-09-03 21:19] VITALS: BP 116/63; PULSE 81
== END 2022-09-03 21:23 | disposition home or self-care (01) ==
LOC: FB.ED 19:53
DX: S00.81XA Abrasion of other part of head, initial encounter (principal); S09.90XA Unspecified injury of head, initial encounter; E78.00 Pure hypercholesterolemia, unspecified; I12.9 Hypertensive chronic kidney disease with stage 1 through stage 4 chronic kidney disease, or unspecified chronic kidney disease; E11.22 Type 2 diabetes mellitus with diabetic chronic kidney disease; N18.9 Chronic kidney disease, unspecified; E03.9 Hypothyroidism, unspecified; E66.9 Obesity, unspecified; Z68.23 Body mass index [BMI] 23.0-23.9, adult; Z79.01 Long term (current) use of anticoagulants; Z79.4 Long term (current) use of insulin; Z79.899 Other long term (current) drug therapy; Z88.8 Allergy status to other drugs, medicaments and biological substances; Z79.82 Long term (current) use of aspirin
CPT/HCPCS: 70450; 99283

== ENCOUNTER 2023-01-06 11:23 | Emergency (ER) | payer MEDICARE, OTHER ==
[2023-01-06 11:57] LABS: BASOPHILS PERCENT AUTO 0.3 % (0.2-1.5); EOSINOPHILS ABSOLUTE AUTO 0.1 x10-3/uL (0.0-0.8); EOSINOPHILS PERCENT AUTO 1.2 % (0.6-8.1); HEMOGLOBIN 14.9 g/dL (11.4-15.5); LYMPHOCYTES ABSOLUTE AUTO 2.2 x10-3/uL (1.0-4.4); MEAN CORPUSCULAR HEMOGLOBIN 29.8 pg (23.9-33.9); MEAN CORPUSCULAR HGB CONC 33.8 g/dL (31.9-34.8); MEAN CORPUSCULAR VOLUME 88.2 fL (76.7-100.5); MEAN PLATELET VOLUME 7.1 fL (7.1-12.4); MONOCYTES PERCENT AUTO 10.1 % (4.4-15.7); NEUTROPHILS PERCENT AUTO 67.4 % (30.8-76.2); PLATELET COUNT,PLT 325 x10(3)uL (151-488); RED CELL DISTRIBUTION WIDTH 15.2 % (12.3-16.5); WHITE BLOOD CELL COUNT,WBC 10.3 x10-3/uL (3.0-10.3)
[2023-01-06 12:06] LABS: C-REACTIVE PROTEIN <0.50 mg/dL (<0.50); MAGNESIUM 1.8 mg/dL (1.8-2.5); PHOSPHORUS 5.5 mg/dL (2.6-4.6)
[2023-01-06 12:08] LABS: LIPASE 264 U/L (16-77)
[2023-01-06 12:09] LABS: ALANINE AMINOTRANSFERASE,ALT 52 U/L (12-36); ALBUMIN 3.7 g/dL (3.2-4.6); ALKALINE PHOSPHATASE 74 IU/L (56-112); ASPARTATE AMNIOTRANSFERASE,AST 41 IU/L (5-25); BILIRUBIN TOTAL 0.4 mg/dL (0.1-1.3); BLOOD UREA NITROGEN,BUN 72 mg/dL (7-18); BUN/CREATININE RATIO 34.3 (9-20); CALCIUM 9.8 mg/dL (8.6-10.2); CARBON DIOXIDE,CO2 24 mmol/L (21-32); CHLORIDE,CL 92 mmol/L (100-110); EST CRCL DRUG DOSING (CG) 20.91 mL/min; ESTIMATED GFR 25 mL/min (>60); GLUCOSE RANDOM 215 mg/dL (80-116); POTASSIUM,K 3.1 mmol/L (3.5-5.3); PROTEIN TOTAL,TP 7.5 g/dL (6.0-8.0); SODIUM,NA 131 mmol/L (135-145)
[2023-01-06 12:10] LABS: CREATININE 2.1 mg/dL (0.55-1.02)
[2023-01-06] MEDS ORDERED: Ondansetron 4 MG/2 ML SDV IVPUSH ONE ×2 (12:13→17:29)
[2023-01-06] MEDS ORDERED: Lactated Ringers 1,000 ML IV SCH ×3 (12:15→17:30)
[2023-01-06 12:36] LABS: INFLUENZA A NAA NEGATIVE (NEGATIVE); INFLUENZA B NAA NEGATIVE (NEGATIVE); RESPIRATORY SYNCYTIAL VIR NAA NEGATIVE (NEGATIVE)
[2023-01-06 12:38] LABS: CORONAVIRUS COVID-19 NAA NEGATIVE (NEGATIVE)
[2023-01-06] MEDS ORDERED: Potassium Chloride 20 MEQ in Premix Bag 1 BAG IV ONE (14:02)
[2023-01-06 17:25] LABS: BILIRUBIN,URINE NEGATIVE (NEGATIVE); GLUCOSE,URINE NORMAL (NORMAL); KETONES,URINE NEGATIVE (NEGATIVE); LEUKOCYTE ESTERASE,URINE NEGATIVE (NEGATIVE); NITRITE,URINE NEGATIVE (NEGATIVE); OCCULT BLOOD,URINE NEGATIVE (NEGATIVE); PROTEIN,URINE NEGATIVE (NEGATIVE); UROBILINOGEN,URINE NORMAL (NEGATIVE)
[2023-01-06] MEDS ORDERED: Pantoprazole 40 MG Vial IVPUSH ONE (17:29)
[2023-01-06] MEDS ORDERED: Potassium Chloride 20 MEQ Tab.ER PO ONE (17:29)
[2023-01-06 17:31] LABS: APPEARANCE,URINE CLEAR (CLEAR); BACTERIA,URINE NOT SEEN (NS); COLOR,URINE YELLOW (YELLOW); HYALINE CASTS,URINE FEW (NS); RBC,URINE 0-5 (0-5); SQUAMOUS EPITHELIAL CELLS,UR RARE (NS,R,O); WBC,URINE 0-5 (0-5)
[2023-01-06 17:59] VITALS: PULSE 62
[2023-01-06 19:30] VITALS: BP 118/62
== END 2023-01-06 18:50 | disposition home or self-care (01) ==
LOC: FB.ED 11:23
DX: K85.90 Acute pancreatitis without necrosis or infection, unspecified (principal); N17.9 Acute kidney failure, unspecified; E86.1 Hypovolemia; E87.6 Hypokalemia; E27.8 Other specified disorders of adrenal gland; N13.30 Unspecified hydronephrosis; E11.22 Type 2 diabetes mellitus with diabetic chronic kidney disease; R63.0 Anorexia; I12.9 Hypertensive chronic kidney disease with stage 1 through stage 4 chronic kidney disease, or unspecified chronic kidney disease; N18.9 Chronic kidney disease, unspecified; E78.00 Pure hypercholesterolemia, unspecified; M19.90 Unspecified osteoarthritis, unspecified site; Z79.01 Long term (current) use of anticoagulants; E03.9 Hypothyroidism, unspecified; E66.9 Obesity, unspecified; Z90.710 Acquired absence of both cervix and uterus; Z79.4 Long term (current) use of insulin; Z79.899 Other long term (current) drug therapy; Z79.82 Long term (current) use of aspirin; Z88.1 Allergy status to other antibiotic agents; Z88.8 Allergy status to other drugs, medicaments and biological substances; Z20.822 Contact with and (suspected) exposure to COVID-19
CPT/HCPCS: 0241U; 36415; 51798; 74176; 80053; 81001; 83690; 83735; 84100; 84478; 85025; 86140; 93005; 93010; 96361; 96365; 96366; 96375; 96376; 99284; A9270; C9113; J2405; J3480; J7120

== ENCOUNTER 2023-02-14 09:28 | Inpatient (IN) | payer MEDICARE, OTHER ==
[2023-02-19] MEDS ORDERED: Ondansetron 4 MG Tab.DIS PO PRN (15:05)
[2023-02-19] MEDS ORDERED: [UNRECOGNIZED DRUG - OTHER] TOP PRN (15:05)
[2023-02-19] MEDS ORDERED: TROLAMINE SALICYLATE TOP PRN (15:05)
[2023-02-19] MEDS ORDERED: Menthol 10%/Methyl Salicylate 30% 85 GM Tube TOP PRN (16:37)
[2023-02-19] MEDS: Ferrous Sulfate 325 MG Tab PO SCH (18:33)
[2023-02-19] MEDS: Insulin Lispro 100 Unit/ML 3 ML KwikPen SUBCUT SCH (18:36)
[2023-02-19] MEDS: Amylase/Lipase/Protease 5,000 Unit Cap.CR PO SCH (18:38)
[2023-02-19] MEDS: Simvastatin 20 MG Tab PO SCH (21:06)
[2023-02-19] MEDS ORDERED: Insulin Lispro 100 Unit/ML 3 ML KwikPen SUBCUT ONE (21:13)
[2023-02-19] MEDS ORDERED: Insulin Glargine,Human Rec. Analog 100 Units/ML 3 ML Pen SUBCUT ONE (21:13)
[2023-02-19] MEDS: Insulin Glargine,Human Rec. Analog 100 Units/ML 3 ML Pen SUBCUT SCH (21:22)
[2023-02-20] MEDS: Levothyroxine 100 MCG Tab PO SCH (06:10)
[2023-02-20] MEDS: Pantoprazole 40 MG Tab.CR PO SCH (06:10)
[2023-02-20] MEDS: Insulin Lispro 100 Unit/ML 3 ML KwikPen SUBCUT SCH ×3 (08:59→17:58)
[2023-02-20] MEDS: Amylase/Lipase/Protease 5,000 Unit Cap.CR PO SCH ×3 (09:00→17:58)
[2023-02-20] MEDS: Allopurinol 300 MG Tab PO SCH (09:00)
[2023-02-20] MEDS: Megestrol Susp 40 MG/ML ML (240 ML Bottle) PO SCH (09:00)
[2023-02-20] MEDS: Calcitriol 0.25 MCG Cap PO SCH (09:00)
[2023-02-20] MEDS: Ferrous Sulfate 325 MG Tab PO SCH ×2 (11:40→17:58)
[2023-02-20] MEDS: Calcium Carbonate 500 MG Tablet PO SCH (11:41)
[2023-02-20] MEDS: Multivitamin Tab PO SCH (11:41)
[2023-02-20] MEDS: Simvastatin 20 MG Tab PO SCH (20:05)
[2023-02-20] MEDS: Insulin Glargine,Human Rec. Analog 100 Units/ML 3 ML Pen SUBCUT SCH (20:06)
[2023-02-21] MEDS: Acetaminophen 650 MG Tab.ER PO PRN ×2 (02:04→20:12)
[2023-02-21] MEDS: Pantoprazole 40 MG Tab.CR PO SCH (05:44)
[2023-02-21] MEDS: Levothyroxine 100 MCG Tab PO SCH (05:44)
[2023-02-21] MEDS: Insulin Lispro 100 Unit/ML 3 ML KwikPen SUBCUT SCH ×3 (08:14→18:28)
[2023-02-21] MEDS: Amylase/Lipase/Protease 5,000 Unit Cap.CR PO SCH ×3 (08:19→18:33)
[2023-02-21] MEDS: Megestrol Susp 40 MG/ML ML (240 ML Bottle) PO SCH (08:19)
[2023-02-21] MEDS: Allopurinol 300 MG Tab PO SCH (08:22)
[2023-02-21] MEDS: Calcitriol 0.25 MCG Cap PO SCH (08:22)
[2023-02-21] MEDS: Calcium Carbonate 500 MG Tablet PO SCH (13:01)
[2023-02-21] MEDS: Ferrous Sulfate 325 MG Tab PO SCH ×2 (13:01→18:33)
[2023-02-21] MEDS: Multivitamin Tab PO SCH (13:02)
[2023-02-21] MEDS: Insulin Glargine,Human Rec. Analog 100 Units/ML 3 ML Pen SUBCUT SCH (20:07)
[2023-02-21] MEDS: Simvastatin 20 MG Tab PO SCH (20:12)
[2023-02-22] MEDS: Levothyroxine 100 MCG Tab PO SCH (05:57)
[2023-02-22] MEDS: Pantoprazole 40 MG Tab.CR PO SCH (05:57)
[2023-02-22] MEDS: Calcitriol 0.25 MCG Cap PO SCH (08:25)
[2023-02-22] MEDS: Allopurinol 300 MG Tab PO SCH (08:25)
[2023-02-22] MEDS: Megestrol Susp 40 MG/ML ML (240 ML Bottle) PO SCH (08:26)
[2023-02-22] MEDS: Amylase/Lipase/Protease 5,000 Unit Cap.CR PO SCH ×3 (08:26→18:21)
[2023-02-22] MEDS: Insulin Lispro 100 Unit/ML 3 ML KwikPen SUBCUT SCH ×3 (08:30→18:17)
[2023-02-22] MEDS: Calcium Carbonate 500 MG Tablet PO SCH (12:16)
[2023-02-22] MEDS: Ferrous Sulfate 325 MG Tab PO SCH ×2 (12:16→18:21)
[2023-02-22] MEDS: Multivitamin Tab PO SCH (12:17)
[2023-02-22] MEDS: Acetaminophen 650 MG Tab.ER PO PRN (20:16)
[2023-02-22] MEDS: Simvastatin 20 MG Tab PO SCH (20:16)
[2023-02-22] MEDS: Insulin Glargine,Human Rec. Analog 100 Units/ML 3 ML Pen SUBCUT SCH (20:16)
[2023-02-23] MEDS: Levothyroxine 100 MCG Tab PO SCH (06:36)
[2023-02-23] MEDS: Pantoprazole 40 MG Tab.CR PO SCH (06:36)
[2023-02-23] MEDS: Amylase/Lipase/Protease 5,000 Unit Cap.CR PO SCH ×3 (08:14→18:22)
[2023-02-23] MEDS: Allopurinol 300 MG Tab PO SCH (08:15)
[2023-02-23] MEDS: Megestrol Susp 40 MG/ML ML (240 ML Bottle) PO SCH (08:15)
[2023-02-23] MEDS: Calcitriol 0.25 MCG Cap PO SCH (08:15)
[2023-02-23] MEDS: Insulin Lispro 100 Unit/ML 3 ML KwikPen SUBCUT SCH ×3 (08:16→18:20)
[2023-02-23] MEDS: Acetaminophen 650 MG Tab.ER PO PRN ×2 (09:30→15:00)
[2023-02-23] MEDS: Calcium Carbonate 500 MG Tablet PO SCH (12:26)
[2023-02-23] MEDS: Multivitamin Tab PO SCH (12:26)
[2023-02-23] MEDS: Ferrous Sulfate 325 MG Tab PO SCH ×2 (12:28→18:22)
[2023-02-23] MEDS: Simvastatin 20 MG Tab PO SCH (20:17)
[2023-02-23] MEDS: Insulin Glargine,Human Rec. Analog 100 Units/ML 3 ML Pen SUBCUT SCH (20:18)
[2023-02-23] MEDS: traMADol 50 MG Tab PO PRN (22:01)
[2023-02-24] MEDS: Levothyroxine 100 MCG Tab PO SCH (05:42)
[2023-02-24] MEDS: Pantoprazole 40 MG Tab.CR PO SCH (05:42)
[2023-02-24] MEDS: Insulin Lispro 100 Unit/ML 3 ML KwikPen SUBCUT SCH ×3 (07:42→18:24)
[2023-02-24] MEDS: Amylase/Lipase/Protease 5,000 Unit Cap.CR PO SCH ×3 (07:46→18:26)
[2023-02-24] MEDS: Allopurinol 300 MG Tab PO SCH (08:25)
[2023-02-24] MEDS: Megestrol Susp 40 MG/ML ML (240 ML Bottle) PO SCH (08:25)
[2023-02-24] MEDS: Calcitriol 0.25 MCG Cap PO SCH (08:25)
[2023-02-24] MEDS: Multivitamin Tab PO SCH (12:29)
[2023-02-24] MEDS: Ferrous Sulfate 325 MG Tab PO SCH ×2 (12:29→18:27)
[2023-02-24] MEDS: Calcium Carbonate 500 MG Tablet PO SCH (12:30)
[2023-02-24] MEDS: Insulin Glargine,Human Rec. Analog 100 Units/ML 3 ML Pen SUBCUT SCH (20:46)
[2023-02-24] MEDS: Simvastatin 20 MG Tab PO SCH (20:47)
[2023-02-24] MEDS: traMADol 50 MG Tab PO PRN (20:49)
[2023-02-25] MEDS: Acetaminophen 650 MG Tab.ER PO PRN (01:08)
[2023-02-25] MEDS: Pantoprazole 40 MG Tab.CR PO SCH (05:53)
[2023-02-25] MEDS: Levothyroxine 100 MCG Tab PO SCH (05:53)
[2023-02-25 07:05] LABS: BLOOD UREA NITROGEN,BUN 41 mg/dL (7-18); BUN/CREATININE RATIO 27.3 (9-20); CALCIUM 8.3 mg/dL (8.6-10.2); CARBON DIOXIDE,CO2 23 mmol/L (21-32); CHLORIDE,CL 104 mmol/L (100-110); CREATININE 1.5 mg/dL (0.55-1.02); EST CRCL DRUG DOSING (CG) 29.27 mL/min; ESTIMATED GFR 37 mL/min (>60); GLUCOSE RANDOM 144 mg/dL (80-116); POTASSIUM,K 4.8 mmol/L (3.5-5.3); SODIUM,NA 134 mmol/L (135-145)
[2023-02-25] MEDS: Insulin Lispro 100 Unit/ML 3 ML KwikPen SUBCUT SCH ×3 (08:45→17:55)
[2023-02-25] MEDS: Megestrol Susp 40 MG/ML ML (240 ML Bottle) PO SCH (08:46)
[2023-02-25] MEDS: Calcitriol 0.25 MCG Cap PO SCH (08:47)
[2023-02-25] MEDS: Amylase/Lipase/Protease 5,000 Unit Cap.CR PO SCH ×3 (08:47→17:55)
[2023-02-25] MEDS: Allopurinol 300 MG Tab PO SCH (08:47)
[2023-02-25] MEDS: traMADol 50 MG Tab PO PRN (08:53)
[2023-02-25] MEDS: Ferrous Sulfate 325 MG Tab PO SCH ×2 (12:02→17:55)
[2023-02-25] MEDS: Calcium Carbonate 500 MG Tablet PO SCH (12:02)
[2023-02-25] MEDS: Multivitamin Tab PO SCH (12:02)
[2023-02-25] MEDS: Simvastatin 20 MG Tab PO SCH (20:07)
[2023-02-25] MEDS: Insulin Glargine,Human Rec. Analog 100 Units/ML 3 ML Pen SUBCUT SCH (20:07)
[2023-02-26] MEDS: Acetaminophen 650 MG Tab.ER PO PRN ×2 (00:47→14:14)
[2023-02-26] MEDS: Levothyroxine 100 MCG Tab PO SCH (05:59)
[2023-02-26] MEDS: Pantoprazole 40 MG Tab.CR PO SCH (05:59)
[2023-02-26] MEDS: Insulin Lispro 100 Unit/ML 3 ML KwikPen SUBCUT SCH ×3 (07:46→17:46)
[2023-02-26] MEDS: Amylase/Lipase/Protease 5,000 Unit Cap.CR PO SCH ×3 (07:50→17:45)
[2023-02-26] MEDS: Megestrol Susp 40 MG/ML ML (240 ML Bottle) PO SCH (08:25)
[2023-02-26] MEDS: Allopurinol 300 MG Tab PO SCH (08:26)
[2023-02-26] MEDS: Calcitriol 0.25 MCG Cap PO SCH (08:26)
[2023-02-26] MEDS: Ferrous Sulfate 325 MG Tab PO SCH ×2 (11:42→17:45)
[2023-02-26] MEDS: Multivitamin Tab PO SCH (11:42)
[2023-02-26] MEDS: Calcium Carbonate 500 MG Tablet PO SCH (11:42)
[2023-02-26] MEDS: Insulin Glargine,Human Rec. Analog 100 Units/ML 3 ML Pen SUBCUT SCH (20:15)
[2023-02-26] MEDS: Simvastatin 20 MG Tab PO SCH (20:16)
[2023-02-26] MEDS: traMADol 50 MG Tab PO PRN (22:43)
[2023-02-27 00:05] LABS: APPEARANCE,URINE CLOUDY (CLEAR); COLOR,URINE YELLOW (YELLOW)
[2023-02-27 00:06] LABS: BILIRUBIN,URINE NEGATIVE (NEGATIVE); GLUCOSE,URINE 100 mg/dL (NORMAL); KETONES,URINE 15 mg/dL (NEGATIVE); LEUKOCYTE ESTERASE,URINE LARGE (NEGATIVE); NITRITE,URINE NEGATIVE (NEGATIVE); OCCULT BLOOD,URINE MODERATE (NEGATIVE); PROTEIN,URINE 100 mg/dL (NEGATIVE); UROBILINOGEN,URINE NORMAL (NEGATIVE)
[2023-02-27 00:07] LABS: BACTERIA,URINE MODERATE (NS); SQUAMOUS EPITHELIAL CELLS,UR FEW (NS,R,O); WBC,URINE >100 (0-5)
[2023-02-27] MEDS: Pantoprazole 40 MG Tab.CR PO SCH (05:47)
[2023-02-27] MEDS: Levothyroxine 100 MCG Tab PO SCH (05:47)
[2023-02-27] MEDS: Insulin Lispro 100 Unit/ML 3 ML KwikPen SUBCUT SCH ×3 (07:49→17:51)
[2023-02-27] MEDS: Amylase/Lipase/Protease 5,000 Unit Cap.CR PO SCH ×3 (07:49→17:46)
[2023-02-27] MEDS: Megestrol Susp 40 MG/ML ML (240 ML Bottle) PO SCH (08:07)
[2023-02-27] MEDS: Calcitriol 0.25 MCG Cap PO SCH (08:08)
[2023-02-27] MEDS: Allopurinol 300 MG Tab PO SCH (08:11)
[2023-02-27] MEDS: Sodium Chloride 0.9% 10 ML Syringe FLUSH PRN ×2 (10:08→10:20)
[2023-02-27] MEDS: Cefepime 1 GM Vial IVPUSH SCH (10:08)
[2023-02-27] MEDS: Ferrous Sulfate 325 MG Tab PO SCH ×2 (11:53→17:46)
[2023-02-27] MEDS: Calcium Carbonate 500 MG Tablet PO SCH (11:53)
[2023-02-27] MEDS: Multivitamin Tab PO SCH (11:53)
[2023-02-27] MEDS: Simvastatin 20 MG Tab PO SCH (21:24)
[2023-02-27] MEDS: Insulin Glargine,Human Rec. Analog 100 Units/ML 3 ML Pen SUBCUT SCH (21:26)
[2023-02-28] MEDS: Acetaminophen 650 MG Tab.ER PO PRN (00:13)
[2023-02-28] MEDS: Pantoprazole 40 MG Tab.CR PO SCH (06:08)
[2023-02-28] MEDS: Levothyroxine 100 MCG Tab PO SCH (06:08)
[2023-02-28 06:56] LABS: HEMATOCRIT 25.4 % (34.2-48.2); HEMOGLOBIN 8.6 g/dL (11.4-15.5); MEAN CORPUSCULAR HEMOGLOBIN 30.7 pg (23.9-33.9); MEAN CORPUSCULAR HGB CONC 33.6 g/dL (31.9-34.8); MEAN CORPUSCULAR VOLUME 91.4 fL (76.7-100.5); MEAN PLATELET VOLUME 6.8 fL (7.1-12.4); PLATELET COUNT,PLT 313 x10(3)uL (151-488); RED BLOOD CELL COUNT 2.78 x10(6)uL (3.60-5.20); RED CELL DISTRIBUTION WIDTH 16.1 % (12.3-16.5); WHITE BLOOD CELL COUNT,WBC 6.1 x10-3/uL (3.0-10.3)
[2023-02-28 07:00] LABS: BLOOD UREA NITROGEN,BUN 40 mg/dL (7-18); BUN/CREATININE RATIO 28.6 (9-20); CALCIUM 8.8 mg/dL (8.6-10.2); CARBON DIOXIDE,CO2 20 mmol/L (21-32); CHLORIDE,CL 106 mmol/L (100-110); CREATININE 1.4 mg/dL (0.55-1.02); EST CRCL DRUG DOSING (CG) 31.37 mL/min; ESTIMATED GFR 40 mL/min (>60); GLUCOSE RANDOM 116 mg/dL (80-116); POTASSIUM,K 4.2 mmol/L (3.5-5.3); SODIUM,NA 136 mmol/L (135-145)
[2023-02-28 07:30] LABS: EOSINOPHILS PERCENT MAN 3 % (0-5); LYMPHOCYTES PERCENT MAN 26 % (13-37); MONOCYTES PERCENT MAN 9 % (4-12); SEG NEUTROPHILS PERCENT MAN 62 % (46-82)
[2023-02-28 07:31] LABS: ANISOCYTOSIS FEW
[2023-02-28] MEDS: Insulin Lispro 100 Unit/ML 3 ML KwikPen SUBCUT SCH ×3 (08:09→18:06)
[2023-02-28] MEDS: Amylase/Lipase/Protease 5,000 Unit Cap.CR PO SCH ×3 (08:14→18:06)
[2023-02-28] MEDS: Calcitriol 0.25 MCG Cap PO SCH (08:14)
[2023-02-28] MEDS: Megestrol Susp 40 MG/ML ML (240 ML Bottle) PO SCH (08:15)
[2023-02-28] MEDS: Allopurinol 300 MG Tab PO SCH (08:15)
[2023-02-28] MEDS: Cefepime 1 GM Vial IVPUSH SCH (10:55)
[2023-02-28] MEDS: Sodium Chloride 0.9% 10 ML Syringe FLUSH PRN ×2 (10:55→11:05)
[2023-02-28] MEDS: Ferrous Sulfate 325 MG Tab PO SCH ×2 (11:06→18:06)
[2023-02-28] MEDS: Multivitamin Tab PO SCH (11:07)
[2023-02-28] MEDS: Calcium Carbonate 500 MG Tablet PO SCH (11:07)
[2023-02-28] MEDS: traMADol 50 MG Tab PO PRN (20:31)
[2023-02-28] MEDS: Simvastatin 20 MG Tab PO SCH (20:32)
[2023-02-28] MEDS: Insulin Glargine,Human Rec. Analog 100 Units/ML 3 ML Pen SUBCUT SCH (20:33)
[2023-03-01] MEDS: Pantoprazole 40 MG Tab.CR PO SCH (06:07)
[2023-03-01] MEDS: Levothyroxine 100 MCG Tab PO SCH (06:07)
[2023-03-01] MEDS: Insulin Lispro 100 Unit/ML 3 ML KwikPen SUBCUT SCH ×3 (09:21→17:24)
[2023-03-01] MEDS: Allopurinol 300 MG Tab PO SCH (09:22)
[2023-03-01] MEDS: Amylase/Lipase/Protease 5,000 Unit Cap.CR PO SCH ×3 (09:22→17:24)
[2023-03-01] MEDS: Calcitriol 0.25 MCG Cap PO SCH (09:22)
[2023-03-01] MEDS: Megestrol Susp 40 MG/ML ML (240 ML Bottle) PO SCH (09:23)
[2023-03-01] MEDS: Cefepime 1 GM Vial IVPUSH SCH (09:27)
[2023-03-01] MEDS: Calcium Carbonate 500 MG Tablet PO SCH (12:10)
[2023-03-01] MEDS: Ferrous Sulfate 325 MG Tab PO SCH ×2 (12:10→17:23)
[2023-03-01] MEDS: Multivitamin Tab PO SCH (12:11)
[2023-03-01] MEDS: Simvastatin 20 MG Tab PO SCH (20:06)
[2023-03-01] MEDS: Insulin Glargine,Human Rec. Analog 100 Units/ML 3 ML Pen SUBCUT SCH (20:07)
[2023-03-02] MEDS: Acetaminophen 650 MG Tab.ER PO PRN ×2 (03:31→20:25)
[2023-03-02] MEDS: Levothyroxine 100 MCG Tab PO SCH (06:15)
[2023-03-02] MEDS: Pantoprazole 40 MG Tab.CR PO SCH (06:15)
[2023-03-02] MEDS: Megestrol Susp 40 MG/ML ML (240 ML Bottle) PO SCH (08:25)
[2023-03-02] MEDS: Insulin Lispro 100 Unit/ML 3 ML KwikPen SUBCUT SCH ×3 (08:25→17:44)
[2023-03-02] MEDS: Allopurinol 300 MG Tab PO SCH (08:26)
[2023-03-02] MEDS: Calcitriol 0.25 MCG Cap PO SCH (08:26)
[2023-03-02] MEDS: Amylase/Lipase/Protease 5,000 Unit Cap.CR PO SCH ×3 (08:27→17:45)
[2023-03-02] MEDS: traMADol 50 MG Tab PO PRN (09:04)
[2023-03-02] MEDS: Cefepime 1 GM Vial IVPUSH SCH (10:25)
[2023-03-02] MEDS: Sodium Chloride 0.9% 10 ML Syringe FLUSH PRN (11:08)
[2023-03-02] MEDS: Ferrous Sulfate 325 MG Tab PO SCH ×2 (12:21→17:46)
[2023-03-02] MEDS: Calcium Carbonate 500 MG Tablet PO SCH (12:22)
[2023-03-02] MEDS: Multivitamin Tab PO SCH (12:22)
[2023-03-02] MEDS: Simvastatin 20 MG Tab PO SCH (20:26)
[2023-03-02] MEDS: Insulin Glargine,Human Rec. Analog 100 Units/ML 3 ML Pen SUBCUT SCH (20:27)
[2023-03-03] MEDS: Sodium Chloride 0.9% 10 ML Syringe FLUSH PRN ×2 (00:30→09:59)
[2023-03-03] MEDS: Pantoprazole 40 MG Tab.CR PO SCH (05:25)
[2023-03-03] MEDS: Levothyroxine 100 MCG Tab PO SCH (05:25)
[2023-03-03] MEDS: Insulin Lispro 100 Unit/ML 3 ML KwikPen SUBCUT SCH ×3 (08:01→18:27)
[2023-03-03] MEDS: Amylase/Lipase/Protease 5,000 Unit Cap.CR PO SCH ×3 (08:07→18:26)
[2023-03-03] MEDS: Calcitriol 0.25 MCG Cap PO SCH (08:08)
[2023-03-03] MEDS: Allopurinol 300 MG Tab PO SCH (08:09)
[2023-03-03] MEDS: Megestrol Susp 40 MG/ML ML (240 ML Bottle) PO SCH (08:12)
[2023-03-03] MEDS: Cefepime 1 GM Vial IVPUSH SCH (09:59)
[2023-03-03] MEDS: Ferrous Sulfate 325 MG Tab PO SCH ×2 (12:37→18:27)
[2023-03-03] MEDS: Calcium Carbonate 500 MG Tablet PO SCH (12:37)
[2023-03-03] MEDS: Multivitamin Tab PO SCH (12:38)
[2023-03-03] MEDS: Acetaminophen 650 MG Tab.ER PO PRN (20:57)
[2023-03-03] MEDS: Simvastatin 20 MG Tab PO SCH (20:57)
[2023-03-03] MEDS: Insulin Glargine,Human Rec. Analog 100 Units/ML 3 ML Pen SUBCUT SCH (20:59)
[2023-03-04] MEDS: Pantoprazole 40 MG Tab.CR PO SCH (05:21)
[2023-03-04] MEDS: Levothyroxine 100 MCG Tab PO SCH (05:21)
[2023-03-04] MEDS: Calcitriol 0.25 MCG Cap PO SCH (09:07)
[2023-03-04] MEDS: Allopurinol 300 MG Tab PO SCH (09:07)
[2023-03-04] MEDS: Amylase/Lipase/Protease 5,000 Unit Cap.CR PO SCH ×3 (09:08→17:57)
[2023-03-04] MEDS: Insulin Lispro 100 Unit/ML 3 ML KwikPen SUBCUT SCH ×3 (09:08→17:57)
[2023-03-04] MEDS: Megestrol Susp 40 MG/ML ML (240 ML Bottle) PO SCH (09:09)
[2023-03-04] MEDS: Cefepime 1 GM Vial IVPUSH SCH (09:10)
[2023-03-04] MEDS: traMADol 50 MG Tab PO PRN (10:00)
[2023-03-04] MEDS: Ferrous Sulfate 325 MG Tab PO SCH ×2 (12:52→17:57)
[2023-03-04] MEDS: Calcium Carbonate 500 MG Tablet PO SCH (12:52)
[2023-03-04] MEDS: Multivitamin Tab PO SCH (12:52)
[2023-03-04] MEDS: Simvastatin 20 MG Tab PO SCH (20:35)
[2023-03-04] MEDS: Insulin Glargine,Human Rec. Analog 100 Units/ML 3 ML Pen SUBCUT SCH (20:36)
[2023-03-05] MEDS: Acetaminophen 650 MG Tab.ER PO PRN (03:27)
[2023-03-05] MEDS: Levothyroxine 100 MCG Tab PO SCH (05:45)
[2023-03-05] MEDS: Pantoprazole 40 MG Tab.CR PO SCH (05:45)
[2023-03-05] MEDS: Insulin Lispro 100 Unit/ML 3 ML KwikPen SUBCUT SCH ×3 (07:44→18:34)
[2023-03-05] MEDS: Amylase/Lipase/Protease 5,000 Unit Cap.CR PO SCH ×3 (07:45→18:35)
[2023-03-05] MEDS: Calcitriol 0.25 MCG Cap PO SCH (09:29)
[2023-03-05] MEDS: Allopurinol 300 MG Tab PO SCH (09:30)
[2023-03-05] MEDS: Sodium Chloride 0.9% 10 ML Syringe FLUSH PRN (09:34)
[2023-03-05] MEDS: Cefepime 1 GM Vial IVPUSH SCH (09:35)
[2023-03-05] MEDS: Megestrol Susp 40 MG/ML ML (240 ML Bottle) PO SCH (09:36)
[2023-03-05] MEDS: Calcium Carbonate 500 MG Tablet PO SCH (11:29)
[2023-03-05] MEDS: Ferrous Sulfate 325 MG Tab PO SCH ×2 (11:29→18:35)
[2023-03-05] MEDS: Multivitamin Tab PO SCH (11:30)
[2023-03-05] MEDS: traMADol 50 MG Tab PO PRN (17:26)
[2023-03-05] MEDS: Insulin Glargine,Human Rec. Analog 100 Units/ML 3 ML Pen SUBCUT SCH (20:25)
[2023-03-05] MEDS: Simvastatin 20 MG Tab PO SCH (20:26)
[2023-03-06] MEDS: Acetaminophen 650 MG Tab.ER PO PRN (02:01)
[2023-03-06] MEDS: Pantoprazole 40 MG Tab.CR PO SCH (05:50)
[2023-03-06] MEDS: Levothyroxine 100 MCG Tab PO SCH (05:50)
[2023-03-06] MEDS: Amylase/Lipase/Protease 5,000 Unit Cap.CR PO SCH (07:37)
[2023-03-06] MEDS: Insulin Lispro 100 Unit/ML 3 ML KwikPen SUBCUT SCH (07:37)
[2023-03-06] MEDS: Calcitriol 0.25 MCG Cap PO SCH (08:27)
[2023-03-06] MEDS: Megestrol Susp 40 MG/ML ML (240 ML Bottle) PO SCH (08:27)
[2023-03-06] MEDS: Allopurinol 300 MG Tab PO SCH (08:27)
[2023-03-06] MEDS: Sodium Chloride 0.9% 10 ML Syringe FLUSH PRN (08:29)
[2023-03-06] MEDS: Cefepime 1 GM Vial IVPUSH SCH (09:12)
[2023-03-06 10:18] VITALS: BP 110/70; PULSE 70
== END 2023-03-06 10:06 | disposition home health service (06) | DRG 947 ==
LOC: FB.MS 02-19 13:07
PROVIDERS: ADMIT Family Medicine; ATTEND Family Medicine
DX: R53.1 Weakness (principal); K68.3 Retroperitoneal hematoma; E87.1 Hypo-osmolality and hyponatremia; N39.0 Urinary tract infection, site not specified; E83.42 Hypomagnesemia; E78.00 Pure hypercholesterolemia, unspecified; H91.90 Unspecified hearing loss, unspecified ear; I12.9 Hypertensive chronic kidney disease with stage 1 through stage 4 chronic kidney disease, or unspecified chronic kidney disease; E11.22 Type 2 diabetes mellitus with diabetic chronic kidney disease; N18.9 Chronic kidney disease, unspecified; M19.90 Unspecified osteoarthritis, unspecified site; E03.9 Hypothyroidism, unspecified; B95.4 Other streptococcus as the cause of diseases classified elsewhere; S70.11XA Contusion of right thigh, initial encounter; S30.0XXA Contusion of lower back and pelvis, initial encounter; E11.69 Type 2 diabetes mellitus with other specified complication; Z97.8 Presence of other specified devices; Z88.8 Allergy status to other drugs, medicaments and biological substances; Z79.899 Other long term (current) drug therapy; Z79.4 Long term (current) use of insulin; Z87.11 Personal history of peptic ulcer disease; Z86.16 Personal history of COVID-19; Z90.49 Acquired absence of other specified parts of digestive tract; Z90.710 Acquired absence of both cervix and uterus; Z90.722 Acquired absence of ovaries, bilateral; W19.XXXA Unspecified fall, initial encounter
CPT/HCPCS: 36415; 51702; 80048; 81001; 82947; 85025; 87086; 87088; 87186; 97110-GP; 97112-GP; 97116-GP; 97161-GP; 97165-GO; 97530-GO; 97530-GP; 97535-GO; A9270-GY; J0692; J1815; J1815-GY; J3490

== ENCOUNTER 2023-03-31 02:02 | Emergency (ER) | payer MEDICARE, OTHER ==
[2023-03-31] MEDS ORDERED: traMADol 50 MG Tab PO ONE (02:03)
[2023-03-31] MEDS: traMADol 50 MG Tab PO ONE (03:17)
[2023-03-31 03:53] VITALS: BP 118/73; PULSE 74
== END 2023-03-31 03:51 | disposition home or self-care (01) ==
LOC: FB.ED 02:02
DX: T83.9XXA Unspecified complication of genitourinary prosthetic device, implant and graft, initial encounter (principal); I10 Essential (primary) hypertension; E78.00 Pure hypercholesterolemia, unspecified; E11.9 Type 2 diabetes mellitus without complications; E03.9 Hypothyroidism, unspecified; Z79.4 Long term (current) use of insulin; Z79.899 Other long term (current) drug therapy; Z88.8 Allergy status to other drugs, medicaments and biological substances; Z86.16 Personal history of COVID-19; Z90.49 Acquired absence of other specified parts of digestive tract; Z90.710 Acquired absence of both cervix and uterus
CPT/HCPCS: 51702; 99283; A9270-GY

== ENCOUNTER 2023-05-09 11:32 | Emergency (ER) | payer MEDICARE, OTHER ==
[2023-05-09 11:52] VITALS: BP 114/59; PULSE 87
[2023-05-09 12:29] LABS: BASOPHILS ABSOLUTE AUTO 0.1 x10-3/uL (0.0-0.1); BASOPHILS PERCENT AUTO 1.1 % (0.2-1.5); EOSINOPHILS ABSOLUTE AUTO 0.2 x10-3/uL (0.0-0.8); EOSINOPHILS PERCENT AUTO 2.7 % (0.6-8.1); HEMATOCRIT 34.1 % (34.2-48.2); HEMOGLOBIN 11.6 g/dL (11.4-15.5); LYMPHOCYTES ABSOLUTE AUTO 2.2 x10-3/uL (1.0-4.4); LYMPHOCYTES PERCENT AUTO 30.2 % (18.4-52.1); MEAN CORPUSCULAR HEMOGLOBIN 31.7 pg (23.9-33.9); MEAN CORPUSCULAR VOLUME 93.2 fL (76.7-100.5); MEAN PLATELET VOLUME 6.7 fL (7.1-12.4); MONOCYTES ABSOLUTE AUTO 0.9 x10-3/uL (0.3-1.0); MONOCYTES PERCENT AUTO 12.2 % (4.4-15.7); NEUTROPHILS PERCENT AUTO 53.8 % (30.8-76.2); PLATELET COUNT,PLT 323 x10(3)uL (151-488); RED BLOOD CELL COUNT 3.66 x10(6)uL (3.60-5.20); RED CELL DISTRIBUTION WIDTH 15.3 % (12.3-16.5); WHITE BLOOD CELL COUNT,WBC 7.4 x10-3/uL (3.0-10.3)
[2023-05-09 12:35] LABS: BLOOD UREA NITROGEN,BUN 66 mg/dL (7-18); CALCIUM 10.2 mg/dL (8.6-10.2); CARBON DIOXIDE,CO2 18 mmol/L (21-32); CHLORIDE,CL 99 mmol/L (100-110); EST CRCL DRUG DOSING (CG) 21.96 mL/min; ESTIMATED GFR 26 mL/min (>60); GLUCOSE RANDOM 163 mg/dL (80-116); POTASSIUM,K 4.5 mmol/L (3.5-5.3); SODIUM,NA 131 mmol/L (135-145)
[2023-05-09] MEDS ORDERED: Sodium Chloride 0.9% 10 ML Syringe FLUSH PRN (12:47)
[2023-05-09] MEDS ORDERED: 50% Dextrose in Water 50 ML Syringe IVPUSH PRN (13:02)
[2023-05-09] MEDS ORDERED: 50% Dextrose in Water 50 ML Syringe IVPUSH ONE (13:02)
[2023-05-09] MEDS ORDERED: Glucagon,Human Recombinant 1 MG Vial IM PRN (13:02)
[2023-05-09] MEDS ORDERED: Insulin Lispro 100 Unit/ML 3 ML KwikPen SUBCUT STA (13:02)
[2023-05-09] MEDS: Sodium Chloride 0.9% 1,000 ML IV SCH (13:15)
[2023-05-09] MEDS: Sodium Bicarbonate 8.4% 50 MEQ/50 ML Syringe IVPUSH ONE (13:21)
[2023-05-09 13:51] LABS: BILIRUBIN,URINE NEGATIVE (NEGATIVE); GLUCOSE,URINE NORMAL (NORMAL); KETONES,URINE NEGATIVE (NEGATIVE); LEUKOCYTE ESTERASE,URINE LARGE (NEGATIVE); NITRITE,URINE NEGATIVE (NEGATIVE); OCCULT BLOOD,URINE LARGE (NEGATIVE); PROTEIN,URINE 100 mg/dL (NEGATIVE); UROBILINOGEN,URINE NORMAL (NEGATIVE)
[2023-05-09 13:56] LABS: APPEARANCE,URINE CLOUDY (CLEAR); COLOR,URINE YELLOW (YELLOW); WBC,URINE PACKED (0-5)
== END 2023-05-09 14:20 | disposition home or self-care (01) ==
LOC: FB.ED 11:32
DX: E86.0 Dehydration (principal); N39.0 Urinary tract infection, site not specified; I12.9 Hypertensive chronic kidney disease with stage 1 through stage 4 chronic kidney disease, or unspecified chronic kidney disease; N17.9 Acute kidney failure, unspecified; N18.9 Chronic kidney disease, unspecified; E78.00 Pure hypercholesterolemia, unspecified; E03.9 Hypothyroidism, unspecified; Z86.16 Personal history of COVID-19; Z79.4 Long term (current) use of insulin; Z79.899 Other long term (current) drug therapy; Z90.49 Acquired absence of other specified parts of digestive tract; Z90.710 Acquired absence of both cervix and uterus; Z88.8 Allergy status to other drugs, medicaments and biological substances
CPT/HCPCS: 36415; 80048; 81001; 83735; 85025; 87086; 87088; 87186; 96361; 96374; 99284; 99284-25; J7030

== ENCOUNTER 2023-06-27 16:04 | Emergency (ER) | payer MEDICARE, OTHER ==
[2023-06-27 17:15] LABS: BASOPHILS PERCENT AUTO 0.3 % (0.2-1.5); EOSINOPHILS PERCENT AUTO 0.6 % (0.6-8.1); HEMATOCRIT 41.8 % (34.2-48.2); HEMOGLOBIN 13.6 g/dL (11.4-15.5); LYMPHOCYTES ABSOLUTE AUTO 2.6 x10-3/uL (1.0-4.4); LYMPHOCYTES PERCENT AUTO 33.4 % (18.4-52.1); MEAN CORPUSCULAR HEMOGLOBIN 30.6 pg (23.9-33.9); MEAN CORPUSCULAR HGB CONC 32.5 g/dL (31.9-34.8); MEAN PLATELET VOLUME 7.9 fL (7.1-12.4); MONOCYTES ABSOLUTE AUTO 0.6 x10-3/uL (0.3-1.0); MONOCYTES PERCENT AUTO 7.9 % (4.4-15.7); NEUTROPHILS ABSOLUTE AUTO 4.5 x10-3/uL (1.5-6.3); NEUTROPHILS PERCENT AUTO 57.8 % (30.8-76.2); PLATELET COUNT,PLT 334 x10(3)uL (151-488); RED BLOOD CELL COUNT 4.45 x10(6)uL (3.60-5.20); RED CELL DISTRIBUTION WIDTH 15.8 % (12.3-16.5); WHITE BLOOD CELL COUNT,WBC 7.8 x10-3/uL (3.0-10.3)
[2023-06-27 17:24] LABS: A/G RATIO 0.9; ALANINE AMINOTRANSFERASE,ALT 49 U/L (12-36); ALKALINE PHOSPHATASE 119 IU/L (56-112); ASPARTATE AMNIOTRANSFERASE,AST 20 IU/L (5-25); BILIRUBIN TOTAL 0.3 mg/dL (0.1-1.3); CALCIUM 9.8 mg/dL (8.6-10.2); CARBON DIOXIDE,CO2 14 mmol/L (21-32); CHLORIDE,CL 103 mmol/L (100-110); ESTIMATED GFR 22 mL/min (>60); GLUCOSE RANDOM 223 mg/dL (80-116); POTASSIUM,K 6.1 mmol/L (3.5-5.3); PROTEIN TOTAL,TP 8.3 g/dL (6.0-8.0); SODIUM,NA 132 mmol/L (135-145)
[2023-06-27 17:30] LABS: BLOOD UREA NITROGEN,BUN 108 mg/dL (7-18); CREATININE 2.3 mg/dL (0.55-1.02)
[2023-06-27] MEDS: Sodium Chloride 0.9% 1,000 ML IV ONE (17:30)
[2023-06-27 17:38] LABS: BILIRUBIN,URINE NEGATIVE (NEGATIVE); GLUCOSE,URINE NORMAL (NORMAL); KETONES,URINE NEGATIVE (NEGATIVE); LEUKOCYTE ESTERASE,URINE LARGE (NEGATIVE); NITRITE,URINE POSITIVE (NEGATIVE); OCCULT BLOOD,URINE NEGATIVE (NEGATIVE); PROTEIN,URINE NEGATIVE (NEGATIVE); UROBILINOGEN,URINE NORMAL (NEGATIVE)
[2023-06-27 17:40] LABS: APPEARANCE,URINE CLEAR (CLEAR); BACTERIA,URINE MODERATE (NS); COLOR,URINE YELLOW (YELLOW); SQUAMOUS EPITHELIAL CELLS,UR OCCASIONAL (NS,R,O); WBC,URINE 50-75 (0-5)
[2023-06-27] MEDS: cefTRIAXone 2 GM Vial IVPUSH ONE (18:33)
[2023-06-27 18:47] VITALS: BP 124/78; PULSE 78
== END 2023-06-27 18:50 | disposition home or self-care (01) ==
LOC: FB.ED 16:04
DX: E86.0 Dehydration (principal); N18.9 Chronic kidney disease, unspecified; R79.89 Other specified abnormal findings of blood chemistry; N39.0 Urinary tract infection, site not specified; Z88.8 Allergy status to other drugs, medicaments and biological substances; Z79.899 Other long term (current) drug therapy; Z79.82 Long term (current) use of aspirin; E78.00 Pure hypercholesterolemia, unspecified; I12.9 Hypertensive chronic kidney disease with stage 1 through stage 4 chronic kidney disease, or unspecified chronic kidney disease; E11.22 Type 2 diabetes mellitus with diabetic chronic kidney disease; E03.9 Hypothyroidism, unspecified; Z86.16 Personal history of COVID-19
CPT/HCPCS: 36415; 80053; 81001; 85025; 86140; 87086; 87088; 87186; 96361; 96374; 99284; 99284-25; J0696; J7030

== ENCOUNTER 2023-07-08 09:22 | Inpatient (IN) | payer MEDICARE, OTHER ==
[2023-07-08] MEDS: Sodium Chloride 0.9% 10 ML Syringe FLUSH PRN (09:40)
[2023-07-08 09:51] LABS: BASOPHILS PERCENT AUTO 0.4 % (0.2-1.5); EOSINOPHILS ABSOLUTE AUTO 0.1 x10-3/uL (0.0-0.8); EOSINOPHILS PERCENT AUTO 1.4 % (0.6-8.1); HEMATOCRIT 37.4 % (34.2-48.2); HEMOGLOBIN 12.6 g/dL (11.4-15.5); LYMPHOCYTES ABSOLUTE AUTO 2.2 x10-3/uL (1.0-4.4); LYMPHOCYTES PERCENT AUTO 27.6 % (18.4-52.1); MEAN CORPUSCULAR HEMOGLOBIN 30.8 pg (23.9-33.9); MEAN CORPUSCULAR HGB CONC 33.6 g/dL (31.9-34.8); MEAN CORPUSCULAR VOLUME 91.5 fL (76.7-100.5); MEAN PLATELET VOLUME 7.7 fL (7.1-12.4); MONOCYTES ABSOLUTE AUTO 0.5 x10-3/uL (0.3-1.0); MONOCYTES PERCENT AUTO 6.2 % (4.4-15.7); NEUTROPHILS PERCENT AUTO 64.4 % (30.8-76.2); PLATELET COUNT,PLT 290 x10(3)uL (151-488); RED BLOOD CELL COUNT 4.09 x10(6)uL (3.60-5.20); RED CELL DISTRIBUTION WIDTH 16.4 % (12.3-16.5); WHITE BLOOD CELL COUNT,WBC 7.8 x10-3/uL (3.0-10.3)
[2023-07-08 09:57] LABS: A/G RATIO 1.1; ALANINE AMINOTRANSFERASE,ALT 22 U/L (12-36); ALBUMIN 4.1 g/dL (3.2-4.6); ALKALINE PHOSPHATASE 98 IU/L (56-112); ASPARTATE AMNIOTRANSFERASE,AST 23 IU/L (5-25); BILIRUBIN TOTAL 0.3 mg/dL (0.1-1.3); BLOOD UREA NITROGEN,BUN 66 mg/dL (7-18); BUN/CREATININE RATIO 24.4 (9-20); CALCIUM 9.6 mg/dL (8.6-10.2); CARBON DIOXIDE,CO2 16 mmol/L (21-32); EST CRCL DRUG DOSING (CG) 15.91 mL/min; ESTIMATED GFR 18 mL/min (>60); GLUCOSE RANDOM 228 mg/dL (80-116); MAGNESIUM 1.7 mg/dL (1.8-2.5); PROTEIN TOTAL,TP 7.9 g/dL (6.0-8.0)
[2023-07-08] MEDS: Sodium Chloride 0.9% 1,000 ML IV ONE ×2 (10:00→11:02)
[2023-07-08 10:08] LABS: SODIUM,NA 126 mmol/L (135-145)
[2023-07-08 10:12] LABS: CHLORIDE,CL 96 mmol/L (100-110); POTASSIUM,K 4.3 mmol/L (3.5-5.3)
[2023-07-08 10:17] LABS: CREATININE 2.7 mg/dL (0.55-1.02)
[2023-07-08 10:20] LABS: BILIRUBIN,URINE NEGATIVE (NEGATIVE); GLUCOSE,URINE NORMAL (NORMAL); KETONES,URINE NEGATIVE (NEGATIVE); LEUKOCYTE ESTERASE,URINE LARGE (NEGATIVE); NITRITE,URINE NEGATIVE (NEGATIVE); OCCULT BLOOD,URINE MODERATE (NEGATIVE); PROTEIN,URINE NEGATIVE (NEGATIVE); UROBILINOGEN,URINE NORMAL (NEGATIVE)
[2023-07-08 10:29] LABS: APPEARANCE,URINE CLOUDY (CLEAR); COLOR,URINE YELLOW (YELLOW); RBC,URINE 0-5 (0-5); SQUAMOUS EPITHELIAL CELLS,UR FEW (NS,R,O); URIC ACID CRYSTALS,URINE FEW (NS); WBC,URINE >100 (0-5); YEAST,URINE MANY (NS)
[2023-07-08 10:30] LABS: BACTERIA,URINE MANY (NS)
[2023-07-08] MEDS ORDERED: Loperamide 2 MG Cap PO PRN (15:04)
[2023-07-08] MEDS ORDERED: Melatonin 3 MG Tab PO PRN (15:04)
[2023-07-08] MEDS ORDERED: TROLAMINE SALICYLATE TOP PRN (15:04)
[2023-07-08] MEDS ORDERED: Acetaminophen 650 MG Supp RECTAL PRN (15:07)
[2023-07-08] MEDS: Levofloxacin/Dextrose 5%-Water 750 MG in Premix Bag 1 BAG IV STA (16:21)
[2023-07-08] MEDS: Heparin Sodium 5,000 Units/ML Vial SUBCUT SCH (16:37)
[2023-07-08] MEDS: Ferrous Sulfate 325 MG Tab PO SCH (17:56)
[2023-07-08] MEDS: Amylase/Lipase/Protease 5,000 Unit Cap.CR PO SCH (17:56)
[2023-07-08] MEDS ORDERED: Insulin Lispro 100 Unit/ML 3 ML KwikPen SUBCUT ONE (18:01)
[2023-07-08] MEDS: Insulin Lispro 100 Unit/ML 3 ML KwikPen SUBCUT SCH (18:02)
[2023-07-08] MEDS: Magnesium Chloride 64 MG Tab.ER PO SCH (20:18)
[2023-07-08] MEDS: Simvastatin 20 MG Tab PO SCH (20:18)
[2023-07-08] MEDS: Psyllium Husk Powder Sugar Free 5.85 GM Packet PO SCH (20:18)
[2023-07-08] MEDS ORDERED: Non-Formulary Medication 1 Each (Estrogens, Conjugated [Premarin Vaginal Crm] 30 GM Tube) VAG SCH (21:00)
[2023-07-08] MEDS ORDERED: Insulin Glargine,Human Rec. Analog 100 Units/ML 3 ML Pen SUBCUT ONE (21:42)
[2023-07-08] MEDS: Insulin Glargine,Human Rec. Analog 100 Units/ML 3 ML Pen SUBCUT SCH (21:43)
[2023-07-08] MEDS: Sodium Chloride 0.9% 1,000 ML IV SCH (22:38)
[2023-07-08] MEDS: Acetaminophen 325 MG Tab PO PRN (22:52)
[2023-07-08 23:52] LABS: INFLUENZA A NAA NEGATIVE (NEGATIVE); INFLUENZA B NAA NEGATIVE (NEGATIVE); RESPIRATORY SYNCYTIAL VIR NAA NEGATIVE (NEGATIVE)
[2023-07-08 23:59] LABS: CORONAVIRUS COVID-19 NAA NEGATIVE (NEGATIVE)
[2023-07-09 04:59] LABS: BLOOD UREA NITROGEN,BUN 44 mg/dL (7-18); BUN/CREATININE RATIO 24.4 (9-20); CALCIUM 8.1 mg/dL (8.6-10.2); CARBON DIOXIDE,CO2 15 mmol/L (21-32); CHLORIDE,CL 106 mmol/L (100-110); CREATININE 1.8 mg/dL (0.55-1.02); EST CRCL DRUG DOSING (CG) 23.93 mL/min; ESTIMATED GFR 30 mL/min (>60); GLUCOSE RANDOM 139 mg/dL (80-116); MAGNESIUM 1.8 mg/dL (1.8-2.5); POTASSIUM,K 3.4 mmol/L (3.5-5.3); SODIUM,NA 133 mmol/L (135-145)
[2023-07-09 05:27] LABS: BASOPHILS PERCENT AUTO 0.3 % (0.2-1.5); EOSINOPHILS ABSOLUTE AUTO 0.1 x10-3/uL (0.0-0.8); EOSINOPHILS PERCENT AUTO 2.7 % (0.6-8.1); HEMATOCRIT 29.1 % (34.2-48.2); HEMOGLOBIN 9.7 g/dL (11.4-15.5); LYMPHOCYTES ABSOLUTE AUTO 1.7 x10-3/uL (1.0-4.4); LYMPHOCYTES PERCENT AUTO 32.8 % (18.4-52.1); MEAN CORPUSCULAR HEMOGLOBIN 30.1 pg (23.9-33.9); MEAN CORPUSCULAR HGB CONC 33.4 g/dL (31.9-34.8); MEAN CORPUSCULAR VOLUME 90.2 fL (76.7-100.5); MONOCYTES ABSOLUTE AUTO 0.5 x10-3/uL (0.3-1.0); MONOCYTES PERCENT AUTO 8.6 % (4.4-15.7); NEUTROPHILS ABSOLUTE AUTO 2.9 x10-3/uL (1.5-6.3); NEUTROPHILS PERCENT AUTO 55.6 % (30.8-76.2); PLATELET COUNT,PLT 220 x10(3)uL (151-488); RED BLOOD CELL COUNT 3.23 x10(6)uL (3.60-5.20); RED CELL DISTRIBUTION WIDTH 15.5 % (12.3-16.5); WHITE BLOOD CELL COUNT,WBC 5.2 x10-3/uL (3.0-10.3)
[2023-07-09] MEDS: Levothyroxine 100 MCG Tab PO SCH (06:22)
[2023-07-09] MEDS: Pantoprazole 40 MG Tab.CR PO SCH (06:29)
[2023-07-09] MEDS ORDERED: 50% Dextrose in Water 50 ML Syringe IVPUSH PRN (08:03)
[2023-07-09] MEDS ORDERED: Glucagon,Human Recombinant 1 MG Vial IM PRN (08:21)
[2023-07-09] MEDS: Allopurinol 300 MG Tab PO SCH (08:22)
[2023-07-09] MEDS: Calcitriol 0.25 MCG Cap PO SCH (08:22)
[2023-07-09] MEDS: Potassium Chloride 20 MEQ Tab.ER PO ONE (08:23)
[2023-07-09] MEDS: Glucagon,Human Recombinant 1 MG Vial IM ONE (08:25)
[2023-07-09] MEDS: Lactated Ringers 1,000 ML IV SCH (09:47)
[2023-07-09] MEDS: Calcium Carbonate 500 MG Tablet PO ONE (12:13)
[2023-07-09] MEDS: Multivitamin Tab PO SCH (12:14)
[2023-07-09] MEDS: Calcium Carbonate 500 MG Tablet PO SCH (12:14)
[2023-07-10 06:52] LABS: BASOPHILS PERCENT AUTO 0.3 % (0.2-1.5); EOSINOPHILS ABSOLUTE AUTO 0.2 x10-3/uL (0.0-0.8); EOSINOPHILS PERCENT AUTO 3.1 % (0.6-8.1); HEMATOCRIT 29.9 % (34.2-48.2); MEAN CORPUSCULAR HEMOGLOBIN 30.6 pg (23.9-33.9); MEAN CORPUSCULAR HGB CONC 33.5 g/dL (31.9-34.8); MEAN CORPUSCULAR VOLUME 91.5 fL (76.7-100.5); MONOCYTES ABSOLUTE AUTO 0.5 x10-3/uL (0.3-1.0); NEUTROPHILS ABSOLUTE AUTO 2.3 x10-3/uL (1.5-6.3); NEUTROPHILS PERCENT AUTO 46.6 % (30.8-76.2); PLATELET COUNT,PLT 213 x10(3)uL (151-488); RED BLOOD CELL COUNT 3.26 x10(6)uL (3.60-5.20); RED CELL DISTRIBUTION WIDTH 16.5 % (12.3-16.5); WHITE BLOOD CELL COUNT,WBC 4.9 x10-3/uL (3.0-10.3)
[2023-07-10 07:06] LABS: BLOOD UREA NITROGEN,BUN 31 mg/dL (7-18); BUN/CREATININE RATIO 20.7 (9-20); CALCIUM 8.7 mg/dL (8.6-10.2); CARBON DIOXIDE,CO2 16 mmol/L (21-32); CHLORIDE,CL 110 mmol/L (100-110); CREATININE 1.5 mg/dL (0.55-1.02); EST CRCL DRUG DOSING (CG) 29.64 mL/min; ESTIMATED GFR 37 mL/min (>60); GLUCOSE RANDOM 151 mg/dL (80-116); SODIUM,NA 137 mmol/L (135-145)
[2023-07-10] MEDS: Levofloxacin/Dextrose 5%-Water 750 MG in Premix Bag 1 BAG IV SCH (14:05)
[2023-07-10 18:33] VITALS: BP 111/49; PULSE 70
== END 2023-07-10 17:35 | disposition home or self-care (01) | DRG 699 ==
LOC: FB.ED 09:22 → FB.MS 11:30 → OBSVTOIN 15:07
PROVIDERS: ADMIT Internal Medicine; ATTEND Internal Medicine
PROC: 0T2BX0Z Change Drainage Device in Bladder, External Approach (ICD-10-PCS; principal; 2023-07-08)
DX: T83.511A Infection and inflammatory reaction due to indwelling urethral catheter, initial encounter (principal); E87.1 Hypo-osmolality and hyponatremia; K51.918 Ulcerative colitis, unspecified with other complication; E89.6 Postprocedural adrenocortical (-medullary) hypofunction; E87.20 Acidosis, unspecified; Z16.24 Resistance to multiple antibiotics; N17.9 Acute kidney failure, unspecified; E86.0 Dehydration; N39.0 Urinary tract infection, site not specified; H91.90 Unspecified hearing loss, unspecified ear; H54.7 Unspecified visual loss; E78.00 Pure hypercholesterolemia, unspecified; I12.9 Hypertensive chronic kidney disease with stage 1 through stage 4 chronic kidney disease, or unspecified chronic kidney disease; M19.90 Unspecified osteoarthritis, unspecified site; N28.9 Disorder of kidney and ureter, unspecified; E11.22 Type 2 diabetes mellitus with diabetic chronic kidney disease; D51.0 Vitamin B12 deficiency anemia due to intrinsic factor deficiency; N18.32 Chronic kidney disease, stage 3b; E83.42 Hypomagnesemia; K86.89 Other specified diseases of pancreas; R33.9 Retention of urine, unspecified; K29.70 Gastritis, unspecified, without bleeding; E87.6 Hypokalemia; D63.1 Anemia in chronic kidney disease; A49.8 Other bacterial infections of unspecified site; E83.51 Hypocalcemia; E03.9 Hypothyroidism, unspecified; Z86.16 Personal history of COVID-19; Z79.4 Long term (current) use of insulin; Z87.81 Personal history of (healed) traumatic fracture; Z79.899 Other long term (current) drug therapy; Z98.49 Cataract extraction status, unspecified eye; Z90.89 Acquired absence of other organs; Z90.49 Acquired absence of other specified parts of digestive tract; Z98.890 Other specified postprocedural states; Z90.710 Acquired absence of both cervix and uterus; Z90.722 Acquired absence of ovaries, bilateral; Z93.2 Ileostomy status; Z88.8 Allergy status to other drugs, medicaments and biological substances
CPT/HCPCS: 0241U; 36415; 51702; 80048; 80053; 81001; 82947; 83605; 83735; 84295; 85025; 86140; 87040; 87086; 87088; 87186; 96360; 96361; 97161-GP; 97165-GO; 99222; 99232; 99238; 99284-25; 99285; A9270-GY; G0378; J1644; J1815; J1815-GY; J1956; J3475; J3490; J7030; J7120

== ENCOUNTER 2023-08-07 14:25 | Inpatient (IN) | payer MEDICARE, OTHER ==
[2023-08-07] MEDS ORDERED: Glucagon,Human Recombinant 1 MG Vial IM PRN (14:57)
[2023-08-07] MEDS ORDERED: 50% Dextrose in Water 50 ML Syringe IVPUSH PRN (14:57)
[2023-08-07] MEDS: Sodium Chloride 0.9% 1,000 ML IV SCH (15:27)
[2023-08-07] MEDS: Albuterol 0.083% 2.5 MG/3 ML Neb Soln NEB ONE (15:30)
[2023-08-07] MEDS: Sodium Chloride 0.9% 10 ML Syringe FLUSH PRN (15:31)
[2023-08-07 15:36] LABS: MAGNESIUM 1.3 mg/dL (1.8-2.5)
[2023-08-07] MEDS: Sodium Bicarbonate 8.4% 50 MEQ/50 ML Syringe IVPUSH ONE (15:36)
[2023-08-07] MEDS: Insulin Regular, Human 100 Units/ML 3 ML Vial IV ONE (15:42)
[2023-08-07 15:45] LABS: POTASSIUM,K 6.8 mmol/L (3.5-5.3)
[2023-08-07] MEDS ORDERED: guaiFENesin 100 MG/5 ML Soln 5 ML UD Cup PO PRN (17:30)
[2023-08-07] MEDS ORDERED: Diclofenac Sodium 1% Gel 100 GM Tube TOP PRN (17:30)
[2023-08-07] MEDS ORDERED: Cocoa Butter/Phenylephrine Rectal Supp RECTAL PRN (17:30)
[2023-08-07] MEDS ORDERED: Carboxymethylcellulose Sodium 1% Ophth Gel 0.4 ML UD Box of 30 EYEBOTH PRN (17:30)
[2023-08-07] MEDS ORDERED: Melatonin 3 MG Tab PO PRN (17:30)
[2023-08-07] MEDS ORDERED: Acetaminophen 650 MG Supp RECTAL PRN (17:35)
[2023-08-07] MEDS ORDERED: Insulin Lispro 100 Unit/ML 3 ML KwikPen SUBCUT ONE (18:43)
[2023-08-07] MEDS: Magnesium Sulfate/Water 2 GM in Premix Bag 1 BAG IV ONE (18:46)
[2023-08-07 18:47] LABS: BLOOD UREA NITROGEN,BUN 86 mg/dL (7-18); BUN/CREATININE RATIO 35.8 (9-20); CALCIUM 8.9 mg/dL (8.6-10.2); CARBON DIOXIDE,CO2 16 mmol/L (21-32); CHLORIDE,CL 97 mmol/L (100-110); EST CRCL DRUG DOSING (CG) 14.99 mL/min; ESTIMATED GFR 21 mL/min (>60); GLUCOSE RANDOM 170 mg/dL (80-116); POTASSIUM,K 4.8 mmol/L (3.5-5.3); SODIUM,NA 127 mmol/L (135-145)
[2023-08-07 18:48] LABS: CREATININE 2.4 mg/dL (0.55-1.02)
[2023-08-07] MEDS: Heparin Sodium 5,000 Units/ML Vial SUBCUT SCH (18:48)
[2023-08-07] MEDS: Ferrous Sulfate 325 MG Tab PO SCH (18:48)
[2023-08-07] MEDS: Insulin Lispro 100 Unit/ML 3 ML KwikPen SUBCUT SCH (18:49)
[2023-08-07] MEDS: Sodium Polystyrene Sulfonate 15 GM/60 ML Susp 60 ML Bot PO SCH (18:49)
[2023-08-07] MEDS ORDERED: Insulin Glargine,Human Rec. Analog 100 Units/ML 3 ML Pen SUBCUT ONE (20:28)
[2023-08-07] MEDS: Simvastatin 20 MG Tab PO SCH (20:35)
[2023-08-07] MEDS: Loperamide 2 MG Cap PO SCH (20:35)
[2023-08-07] MEDS: Insulin Glargine,Human Rec. Analog 100 Units/ML 3 ML Pen SUBCUT SCH (20:37)
[2023-08-07 20:54] LABS: BILIRUBIN,URINE NEGATIVE (NEGATIVE); GLUCOSE,URINE NORMAL (NORMAL); KETONES,URINE NEGATIVE (NEGATIVE); LEUKOCYTE ESTERASE,URINE LARGE (NEGATIVE); NITRITE,URINE NEGATIVE (NEGATIVE); OCCULT BLOOD,URINE TRACE (NEGATIVE); PROTEIN,URINE NEGATIVE (NEGATIVE); UROBILINOGEN,URINE NORMAL (NEGATIVE)
[2023-08-07 20:57] LABS: APPEARANCE,URINE SLIGHTLY CLOUDY (CLEAR); COLOR,URINE YELLOW (YELLOW); SQUAMOUS EPITHELIAL CELLS,UR OCCASIONAL (NS,R,O); WBC,URINE 50-75 (0-5)
[2023-08-07 20:58] LABS: BACTERIA,URINE MODERATE (NS)
[2023-08-07] MEDS ORDERED: Non-Formulary Medication 1 Each (Insulin Degludec [Tresiba Flextouch U-100] 100 UNIT/ML Pe SUBCUT SCH (21:00)
[2023-08-07] MEDS: Meropenem 500 MG SDV IVPUSH SCH (23:39)
[2023-08-08 00:43] LABS: BLOOD UREA NITROGEN,BUN 80 mg/dL (7-18); BUN/CREATININE RATIO 36.4 (9-20); CALCIUM 9.1 mg/dL (8.6-10.2); CARBON DIOXIDE,CO2 18 mmol/L (21-32); CHLORIDE,CL 99 mmol/L (100-110); EST CRCL DRUG DOSING (CG) 16.36 mL/min; ESTIMATED GFR 23 mL/min (>60); GLUCOSE RANDOM 177 mg/dL (80-116); SODIUM,NA 128 mmol/L (135-145)
[2023-08-08 00:45] LABS: CREATININE 2.2 mg/dL (0.55-1.02)
[2023-08-08] MEDS: Levothyroxine 100 MCG Tab PO SCH (06:18)
[2023-08-08 06:30] LABS: BASOPHILS PERCENT AUTO 0.8 % (0.2-1.5); EOSINOPHILS ABSOLUTE AUTO 0.1 x10-3/uL (0.0-0.8); EOSINOPHILS PERCENT AUTO 1.4 % (0.6-8.1); HEMATOCRIT 30.3 % (34.2-48.2); HEMOGLOBIN 10.2 g/dL (11.4-15.5); LYMPHOCYTES ABSOLUTE AUTO 1.5 x10-3/uL (1.0-4.4); LYMPHOCYTES PERCENT AUTO 24.3 % (18.4-52.1); MEAN CORPUSCULAR HEMOGLOBIN 30.6 pg (23.9-33.9); MEAN CORPUSCULAR HGB CONC 33.6 g/dL (31.9-34.8); MEAN CORPUSCULAR VOLUME 91.2 fL (76.7-100.5); MEAN PLATELET VOLUME 7.2 fL (7.1-12.4); MONOCYTES ABSOLUTE AUTO 0.8 x10-3/uL (0.3-1.0); MONOCYTES PERCENT AUTO 12.7 % (4.4-15.7); NEUTROPHILS ABSOLUTE AUTO 3.8 x10-3/uL (1.5-6.3); NEUTROPHILS PERCENT AUTO 60.8 % (30.8-76.2); PLATELET COUNT,PLT 323 x10(3)uL (151-488); RED BLOOD CELL COUNT 3.32 x10(6)uL (3.60-5.20); RED CELL DISTRIBUTION WIDTH 16.2 % (12.3-16.5); WHITE BLOOD CELL COUNT,WBC 6.3 x10-3/uL (3.0-10.3)
[2023-08-08] MEDS: Pantoprazole 40 MG Tab.CR PO SCH (06:30)
[2023-08-08 06:44] LABS: A/G RATIO 0.9; ALANINE AMINOTRANSFERASE,ALT 72 U/L (12-36); ALBUMIN 2.9 g/dL (3.2-4.6); ALKALINE PHOSPHATASE 107 IU/L (56-112); ASPARTATE AMNIOTRANSFERASE,AST 79 IU/L (5-25); BILIRUBIN TOTAL 0.3 mg/dL (0.1-1.3); BLOOD UREA NITROGEN,BUN 77 mg/dL (7-18); BUN/CREATININE RATIO 38.5 (9-20); CARBON DIOXIDE,CO2 19 mmol/L (21-32); CHLORIDE,CL 101 mmol/L (100-110); EST CRCL DRUG DOSING (CG) 17.99 mL/min; ESTIMATED GFR 26 mL/min (>60); GLUCOSE RANDOM 166 mg/dL (80-116); MAGNESIUM 1.9 mg/dL (1.8-2.5); POTASSIUM,K 5.1 mmol/L (3.5-5.3); PROTEIN TOTAL,TP 6.2 g/dL (6.0-8.0); SODIUM,NA 131 mmol/L (135-145)
[2023-08-08] MEDS ORDERED: Aluminum Hydroxide/Magnesium Hydroxide Susp 30 ML Cup PO PRN (07:36)
[2023-08-08] MEDS: Psyllium Husk Powder Sugar Free 5.85 GM Packet PO SCH (08:56)
[2023-08-08] MEDS: Amylase/Lipase/Protease 5,000 Unit Cap.CR PO SCH (08:57)
[2023-08-08] MEDS: Calcitriol 0.25 MCG Cap PO SCH (08:58)
[2023-08-08] MEDS: Allopurinol 300 MG Tab PO SCH (08:58)
[2023-08-08] MEDS: Multivitamin Tab PO SCH (11:44)
[2023-08-08] MEDS: Calcium Carbonate 500 MG Tablet PO SCH (11:45)
[2023-08-08 14:06] LABS: AMPHETAMINES SCREEN, URINE NEGATIVE (NEGATIVE); BARBITURATE SCREEN,URINE NEGATIVE (NEGATIVE); BENZODIAZEPINES SCREEN,URINE NEGATIVE (NEGATIVE); METHADONE SCREEN, URINE NEGATIVE (NEGATIVE); METHAMPHETAMINE SCREEN, URINE NEGATIVE (NEGATIVE); OXYCODONE SCREEN,URINE NEGATIVE (NEGATIVE); THC SCREEN,URINE NEGATIVE (NEGATIVE)
[2023-08-08 14:08] LABS: BUPRENORPHINE SCREEN,URINE NEGATIVE (NEGATIVE)
[2023-08-08] MEDS: Magnesium Oxide 400 MG Tab PO SCH (20:42)
[2023-08-08] MEDS: Levofloxacin/Dextrose 5%-Water 750 MG in Premix Bag 1 BAG IV ONE (20:46)
[2023-08-08] MEDS: Estradiol 0.01% Vaginal Crm 42.5 GM Tube VAG SCH (20:47)
[2023-08-08] MEDS: Acetaminophen 325 MG Tab PO PRN (21:48)
[2023-08-08] MEDS: Ondansetron 4 MG Tab.DIS PO PRN (23:54)
[2023-08-09 06:36] LABS: BASOPHILS PERCENT AUTO 0.6 % (0.2-1.5); EOSINOPHILS ABSOLUTE AUTO 0.1 x10-3/uL (0.0-0.8); EOSINOPHILS PERCENT AUTO 2.3 % (0.6-8.1); HEMOGLOBIN 10.1 g/dL (11.4-15.5); LYMPHOCYTES ABSOLUTE AUTO 1.5 x10-3/uL (1.0-4.4); LYMPHOCYTES PERCENT AUTO 31.7 % (18.4-52.1); MEAN CORPUSCULAR HEMOGLOBIN 30.6 pg (23.9-33.9); MEAN CORPUSCULAR HGB CONC 33.6 g/dL (31.9-34.8); MEAN CORPUSCULAR VOLUME 91.1 fL (76.7-100.5); MEAN PLATELET VOLUME 6.8 fL (7.1-12.4); MONOCYTES ABSOLUTE AUTO 0.5 x10-3/uL (0.3-1.0); MONOCYTES PERCENT AUTO 11.6 % (4.4-15.7); NEUTROPHILS ABSOLUTE AUTO 2.5 x10-3/uL (1.5-6.3); NEUTROPHILS PERCENT AUTO 53.8 % (30.8-76.2); PLATELET COUNT,PLT 341 x10(3)uL (151-488); RED BLOOD CELL COUNT 3.29 x10(6)uL (3.60-5.20); RED CELL DISTRIBUTION WIDTH 16.3 % (12.3-16.5); WHITE BLOOD CELL COUNT,WBC 4.6 x10-3/uL (3.0-10.3)
[2023-08-09 06:49] LABS: A/G RATIO 0.7; ALANINE AMINOTRANSFERASE,ALT 54 U/L (12-36); ALBUMIN 2.6 g/dL (3.2-4.6); ALKALINE PHOSPHATASE 94 IU/L (56-112); ASPARTATE AMNIOTRANSFERASE,AST 33 IU/L (5-25); BILIRUBIN TOTAL 0.3 mg/dL (0.1-1.3); BLOOD UREA NITROGEN,BUN 48 mg/dL (7-18); BUN/CREATININE RATIO 36.9 (9-20); CALCIUM 8.9 mg/dL (8.6-10.2); CARBON DIOXIDE,CO2 20 mmol/L (21-32); CHLORIDE,CL 101 mmol/L (100-110); CREATININE 1.3 mg/dL (0.55-1.02); EST CRCL DRUG DOSING (CG) 27.68 mL/min; ESTIMATED GFR 43 mL/min (>60); GLUCOSE RANDOM 137 mg/dL (80-116); POTASSIUM,K 4.8 mmol/L (3.5-5.3); PROTEIN TOTAL,TP 6.1 g/dL (6.0-8.0); SODIUM,NA 130 mmol/L (135-145)
[2023-08-09] MEDS ORDERED: Loperamide 2 MG Cap PO PRN (16:54)
[2023-08-09 17:16] LABS: HEPATITIS B SURFACE ANTIBODY <3.10 IU/L
[2023-08-09 18:23] LABS: HEPATITIS A ANTIBODY, IGM Negative (Negative); HEPATITIS B CORE ANTIBODY, IGM Negative (Negative); HEPATITIS B SURFACE ANTIGEN Negative (Negative); HEPATITIS C AB CIA INTERP Negative (Negative); HEPATITIS C ANTIBODY CIA INDEX <0.02 IV
[2023-08-10 06:39] LABS: BASOPHILS PERCENT AUTO 0.4 % (0.2-1.5); EOSINOPHILS ABSOLUTE AUTO 0.2 x10-3/uL (0.0-0.8); EOSINOPHILS PERCENT AUTO 2.5 % (0.6-8.1); HEMOGLOBIN 9.7 g/dL (11.4-15.5); LYMPHOCYTES ABSOLUTE AUTO 1.7 x10-3/uL (1.0-4.4); LYMPHOCYTES PERCENT AUTO 26.9 % (18.4-52.1); MEAN CORPUSCULAR HEMOGLOBIN 30.8 pg (23.9-33.9); MEAN CORPUSCULAR HGB CONC 33.4 g/dL (31.9-34.8); MEAN CORPUSCULAR VOLUME 92.2 fL (76.7-100.5); MEAN PLATELET VOLUME 6.5 fL (7.1-12.4); MONOCYTES ABSOLUTE AUTO 0.6 x10-3/uL (0.3-1.0); MONOCYTES PERCENT AUTO 9.3 % (4.4-15.7); NEUTROPHILS ABSOLUTE AUTO 3.8 x10-3/uL (1.5-6.3); NEUTROPHILS PERCENT AUTO 60.9 % (30.8-76.2); PLATELET COUNT,PLT 325 x10(3)uL (151-488); RED BLOOD CELL COUNT 3.15 x10(6)uL (3.60-5.20); RED CELL DISTRIBUTION WIDTH 16.1 % (12.3-16.5); WHITE BLOOD CELL COUNT,WBC 6.2 x10-3/uL (3.0-10.3)
[2023-08-10 06:50] LABS: A/G RATIO 0.8; ALANINE AMINOTRANSFERASE,ALT 40 U/L (12-36); ALBUMIN 2.5 g/dL (3.2-4.6); ALKALINE PHOSPHATASE 87 IU/L (56-112); ASPARTATE AMNIOTRANSFERASE,AST 26 IU/L (5-25); BILIRUBIN TOTAL 0.4 mg/dL (0.1-1.3); BLOOD UREA NITROGEN,BUN 31 mg/dL (7-18); BUN/CREATININE RATIO 23.8 (9-20); CALCIUM 8.6 mg/dL (8.6-10.2); CARBON DIOXIDE,CO2 23 mmol/L (21-32); CHLORIDE,CL 104 mmol/L (100-110); CREATININE 1.3 mg/dL (0.55-1.02); EST CRCL DRUG DOSING (CG) 27.68 mL/min; ESTIMATED GFR 43 mL/min (>60); GLUCOSE RANDOM 121 mg/dL (80-116); POTASSIUM,K 4.2 mmol/L (3.5-5.3); PROTEIN TOTAL,TP 5.5 g/dL (6.0-8.0); SODIUM,NA 134 mmol/L (135-145)
[2023-08-10] MEDS: Metoclopramide 5 MG Tab PO PRN (08:00)
[2023-08-10] MEDS ORDERED: Cephalexin 500 MG Cap PO SCH (09:00)
[2023-08-10] MEDS: Ciprofloxacin 500 MG Tab PO SCH (09:36)
[2023-08-10] MEDS: Sodium Chloride 0.9% 500 ML IV ONE (16:30)
[2023-08-10] MEDS: Iopamidol 755 Mg/ML 100 ML Bottle IV SCH (17:02)
[2023-08-10] MEDS: LORazepam 2 MG/ML SDV IVPUSH ONE (17:06)
[2023-08-10] MEDS: Lidocaine 2% HCl 6 ML Jel MM ONE (17:20)
[2023-08-10] MEDS ORDERED: Ondansetron 4 MG/2 ML SDV IVPUSH PRN (18:11)
[2023-08-10] MEDS ORDERED: cefTRIAXone 1 GM in Sodium Chloride 0.9% 50 ML IV SCH (18:15)
[2023-08-10] MEDS: cefTRIAXone 1 GM Vial IV SCH (18:56)
[2023-08-10] MEDS ORDERED: Levofloxacin/Dextrose 5%-Water 500 MG in Premix Bag 1 BAG IV SCH (21:00)
[2023-08-11 06:51] LABS: BASOPHILS PERCENT AUTO 0.8 % (0.2-1.5); EOSINOPHILS ABSOLUTE AUTO 0.1 x10-3/uL (0.0-0.8); EOSINOPHILS PERCENT AUTO 2.5 % (0.6-8.1); HEMATOCRIT 30.7 % (34.2-48.2); HEMOGLOBIN 10.1 g/dL (11.4-15.5); LYMPHOCYTES ABSOLUTE AUTO 1.7 x10-3/uL (1.0-4.4); LYMPHOCYTES PERCENT AUTO 29.3 % (18.4-52.1); MEAN CORPUSCULAR HEMOGLOBIN 30.5 pg (23.9-33.9); MEAN CORPUSCULAR HGB CONC 32.9 g/dL (31.9-34.8); MEAN CORPUSCULAR VOLUME 92.7 fL (76.7-100.5); MEAN PLATELET VOLUME 6.8 fL (7.1-12.4); MONOCYTES ABSOLUTE AUTO 0.7 x10-3/uL (0.3-1.0); MONOCYTES PERCENT AUTO 11.5 % (4.4-15.7); NEUTROPHILS ABSOLUTE AUTO 3.3 x10-3/uL (1.5-6.3); NEUTROPHILS PERCENT AUTO 55.9 % (30.8-76.2); PLATELET COUNT,PLT 339 x10(3)uL (151-488); RED BLOOD CELL COUNT 3.31 x10(6)uL (3.60-5.20); RED CELL DISTRIBUTION WIDTH 16.6 % (12.3-16.5); WHITE BLOOD CELL COUNT,WBC 5.9 x10-3/uL (3.0-10.3)
[2023-08-11 07:01] LABS: A/G RATIO 0.8; ALANINE AMINOTRANSFERASE,ALT 34 U/L (12-36); ALBUMIN 2.5 g/dL (3.2-4.6); ALKALINE PHOSPHATASE 86 IU/L (56-112); ASPARTATE AMNIOTRANSFERASE,AST 22 IU/L (5-25); BILIRUBIN TOTAL 0.4 mg/dL (0.1-1.3); BLOOD UREA NITROGEN,BUN 23 mg/dL (7-18); BUN/CREATININE RATIO 17.7 (9-20); CALCIUM 8.7 mg/dL (8.6-10.2); CARBON DIOXIDE,CO2 22 mmol/L (21-32); CHLORIDE,CL 107 mmol/L (100-110); CREATININE 1.3 mg/dL (0.55-1.02); EST CRCL DRUG DOSING (CG) 27.68 mL/min; ESTIMATED GFR 43 mL/min (>60); GLUCOSE RANDOM 113 mg/dL (80-116); POTASSIUM,K 3.8 mmol/L (3.5-5.3); PROTEIN TOTAL,TP 5.5 g/dL (6.0-8.0); SODIUM,NA 138 mmol/L (135-145)
[2023-08-11] MEDS: Magnesium Sulfate/Water 4 GM in Premix Bag 1 BAG IV ONE (09:36)
[2023-08-12] MEDS: Glucagon,Human Recombinant 1 MG Vial IM PRN (02:28)
[2023-08-12 09:03] LABS: BASOPHILS PERCENT AUTO 0.5 % (0.2-1.5); EOSINOPHILS ABSOLUTE AUTO 0.1 x10-3/uL (0.0-0.8); HEMATOCRIT 29.1 % (34.2-48.2); HEMOGLOBIN 9.5 g/dL (11.4-15.5); LYMPHOCYTES PERCENT AUTO 18.9 % (18.4-52.1); MEAN CORPUSCULAR HEMOGLOBIN 30.6 pg (23.9-33.9); MEAN CORPUSCULAR HGB CONC 32.8 g/dL (31.9-34.8); MEAN CORPUSCULAR VOLUME 93.4 fL (76.7-100.5); MEAN PLATELET VOLUME 6.4 fL (7.1-12.4); MONOCYTES ABSOLUTE AUTO 0.5 x10-3/uL (0.3-1.0); MONOCYTES PERCENT AUTO 9.7 % (4.4-15.7); NEUTROPHILS ABSOLUTE AUTO 3.7 x10-3/uL (1.5-6.3); NEUTROPHILS PERCENT AUTO 68.9 % (30.8-76.2); PLATELET COUNT,PLT 302 x10(3)uL (151-488); RED BLOOD CELL COUNT 3.12 x10(6)uL (3.60-5.20); RED CELL DISTRIBUTION WIDTH 16.8 % (12.3-16.5); WHITE BLOOD CELL COUNT,WBC 5.3 x10-3/uL (3.0-10.3)
[2023-08-12 09:17] LABS: A/G RATIO 0.8; ALANINE AMINOTRANSFERASE,ALT 24 U/L (12-36); ALBUMIN 2.3 g/dL (3.2-4.6); ALKALINE PHOSPHATASE 79 IU/L (56-112); ASPARTATE AMNIOTRANSFERASE,AST 21 IU/L (5-25); BILIRUBIN TOTAL 0.3 mg/dL (0.1-1.3); BLOOD UREA NITROGEN,BUN 19 mg/dL (7-18); BUN/CREATININE RATIO 17.3 (9-20); CALCIUM 8.1 mg/dL (8.6-10.2); CARBON DIOXIDE,CO2 19 mmol/L (21-32); CHLORIDE,CL 110 mmol/L (100-110); CREATININE 1.1 mg/dL (0.55-1.02); EST CRCL DRUG DOSING (CG) 32.72 mL/min; ESTIMATED GFR 53 mL/min (>60); GLUCOSE RANDOM 96 mg/dL (80-116); MAGNESIUM 1.8 mg/dL (1.8-2.5); POTASSIUM,K 3.2 mmol/L (3.5-5.3); PROTEIN TOTAL,TP 5.2 g/dL (6.0-8.0); SODIUM,NA 144 mmol/L (135-145)
[2023-08-12] MEDS: Potassium Chloride 20 MEQ Tab.ER PO ONE (10:26)
[2023-08-12] MEDS: Cephalexin 500 MG Cap PO SCH (20:13)
[2023-08-13 10:11] LABS: BASOPHILS PERCENT AUTO 0.7 % (0.2-1.5); EOSINOPHILS ABSOLUTE AUTO 0.1 x10-3/uL (0.0-0.8); EOSINOPHILS PERCENT AUTO 2.7 % (0.6-8.1); HEMATOCRIT 29.1 % (34.2-48.2); HEMOGLOBIN 9.6 g/dL (11.4-15.5); LYMPHOCYTES ABSOLUTE AUTO 1.5 x10-3/uL (1.0-4.4); LYMPHOCYTES PERCENT AUTO 32.3 % (18.4-52.1); MEAN CORPUSCULAR HEMOGLOBIN 30.6 pg (23.9-33.9); MEAN CORPUSCULAR HGB CONC 32.8 g/dL (31.9-34.8); MEAN CORPUSCULAR VOLUME 93.3 fL (76.7-100.5); MEAN PLATELET VOLUME 5.9 fL (7.1-12.4); MONOCYTES ABSOLUTE AUTO 0.5 x10-3/uL (0.3-1.0); MONOCYTES PERCENT AUTO 11.6 % (4.4-15.7); NEUTROPHILS ABSOLUTE AUTO 2.5 x10-3/uL (1.5-6.3); NEUTROPHILS PERCENT AUTO 52.7 % (30.8-76.2); PLATELET COUNT,PLT 298 x10(3)uL (151-488); RED BLOOD CELL COUNT 3.12 x10(6)uL (3.60-5.20); RED CELL DISTRIBUTION WIDTH 17.3 % (12.3-16.5); WHITE BLOOD CELL COUNT,WBC 4.7 x10-3/uL (3.0-10.3)
[2023-08-13 10:23] LABS: A/G RATIO 0.8; ALANINE AMINOTRANSFERASE,ALT 26 U/L (12-36); ALBUMIN 2.5 g/dL (3.2-4.6); ALKALINE PHOSPHATASE 80 IU/L (56-112); ASPARTATE AMNIOTRANSFERASE,AST 19 IU/L (5-25); BILIRUBIN TOTAL 0.3 mg/dL (0.1-1.3); BLOOD UREA NITROGEN,BUN 12 mg/dL (7-18); BUN/CREATININE RATIO 10.9 (9-20); CARBON DIOXIDE,CO2 20 mmol/L (21-32); CHLORIDE,CL 105 mmol/L (100-110); CREATININE 1.1 mg/dL (0.55-1.02); EST CRCL DRUG DOSING (CG) 32.72 mL/min; ESTIMATED GFR 53 mL/min (>60); GLUCOSE RANDOM 127 mg/dL (80-116); POTASSIUM,K 3.7 mmol/L (3.5-5.3); PROTEIN TOTAL,TP 5.6 g/dL (6.0-8.0); SODIUM,NA 137 mmol/L (135-145)
[2023-08-13] MEDS: Magnesium Sulfate/Water 4 GM in Premix Bag 1 BAG IV ONE (14:17)
[2023-08-13] MEDS: Tuberculin, PPD 5 Units/0.1 ML 1 ML MDV IDERM ONE (14:22)
[2023-08-14 07:03] LABS: BASOPHILS PERCENT AUTO 0.7 % (0.2-1.5); EOSINOPHILS ABSOLUTE AUTO 0.1 x10-3/uL (0.0-0.8); EOSINOPHILS PERCENT AUTO 3.9 % (0.6-8.1); HEMATOCRIT 27.6 % (34.2-48.2); HEMOGLOBIN 9.1 g/dL (11.4-15.5); LYMPHOCYTES ABSOLUTE AUTO 1.2 x10-3/uL (1.0-4.4); LYMPHOCYTES PERCENT AUTO 35.5 % (18.4-52.1); MEAN CORPUSCULAR HEMOGLOBIN 30.9 pg (23.9-33.9); MEAN CORPUSCULAR HGB CONC 32.9 g/dL (31.9-34.8); MEAN CORPUSCULAR VOLUME 93.8 fL (76.7-100.5); MEAN PLATELET VOLUME 6.7 fL (7.1-12.4); MONOCYTES ABSOLUTE AUTO 0.4 x10-3/uL (0.3-1.0); MONOCYTES PERCENT AUTO 12.2 % (4.4-15.7); NEUTROPHILS ABSOLUTE AUTO 1.7 x10-3/uL (1.5-6.3); NEUTROPHILS PERCENT AUTO 47.7 % (30.8-76.2); PLATELET COUNT,PLT 258 x10(3)uL (151-488); RED CELL DISTRIBUTION WIDTH 16.6 % (12.3-16.5); WHITE BLOOD CELL COUNT,WBC 3.5 x10-3/uL (3.0-10.3)
[2023-08-14 07:14] LABS: A/G RATIO 0.8; ALANINE AMINOTRANSFERASE,ALT 23 U/L (12-36); ALBUMIN 2.3 g/dL (3.2-4.6); ALKALINE PHOSPHATASE 73 IU/L (56-112); ASPARTATE AMNIOTRANSFERASE,AST 19 IU/L (5-25); BILIRUBIN TOTAL 0.3 mg/dL (0.1-1.3); BLOOD UREA NITROGEN,BUN 8 mg/dL (7-18); CALCIUM 8.2 mg/dL (8.6-10.2); CARBON DIOXIDE,CO2 21 mmol/L (21-32); CHLORIDE,CL 107 mmol/L (100-110); EST CRCL DRUG DOSING (CG) 43.27 mL/min; ESTIMATED GFR 59 mL/min (>60); GLUCOSE RANDOM 161 mg/dL (80-116); MAGNESIUM 1.9 mg/dL (1.8-2.5); POTASSIUM,K 3.7 mmol/L (3.5-5.3); PROTEIN TOTAL,TP 5.1 g/dL (6.0-8.0); SODIUM,NA 138 mmol/L (135-145)
[2023-08-14 07:19] LABS: RED BLOOD CELL COUNT 2.94 x10(6)uL (3.60-5.20)
[2023-08-14 09:19] VITALS: BP 115/63; PULSE 64
== END 2023-08-14 13:15 | DRG 683 ==
LOC: FB.ED 14:25 → FB.MS 16:15
PROVIDERS: ADMIT Internal Medicine; ATTEND Family Medicine
PROC: 0T2BX0Z Change Drainage Device in Bladder, External Approach (ICD-10-PCS; principal; 2023-08-07)
PROC: 0D9670Z Drainage of Stomach with Drainage Device, Via Natural or Artificial Opening (ICD-10-PCS; 2023-08-10)
DX: N17.9 Acute kidney failure, unspecified (principal); E44.0 Moderate protein-calorie malnutrition; T83.511A Infection and inflammatory reaction due to indwelling urethral catheter, initial encounter; E87.1 Hypo-osmolality and hyponatremia; E89.6 Postprocedural adrenocortical (-medullary) hypofunction; E87.20 Acidosis, unspecified; N18.9 Chronic kidney disease, unspecified; N39.0 Urinary tract infection, site not specified; K56.50 Intestinal adhesions [bands], unspecified as to partial versus complete obstruction; Z16.29 Resistance to other single specified antibiotic; E87.5 Hyperkalemia; H91.90 Unspecified hearing loss, unspecified ear; H54.7 Unspecified visual loss; E78.00 Pure hypercholesterolemia, unspecified; M19.90 Unspecified osteoarthritis, unspecified site; E11.22 Type 2 diabetes mellitus with diabetic chronic kidney disease; E03.9 Hypothyroidism, unspecified; E83.42 Hypomagnesemia; E86.0 Dehydration; R33.9 Retention of urine, unspecified; N18.32 Chronic kidney disease, stage 3b; E79.0 Hyperuricemia without signs of inflammatory arthritis and tophaceous disease; K86.89 Other specified diseases of pancreas; D51.0 Vitamin B12 deficiency anemia due to intrinsic factor deficiency; R74.01 Elevation of levels of liver transaminase levels; K29.70 Gastritis, unspecified, without bleeding; D63.1 Anemia in chronic kidney disease; D50.8 Other iron deficiency anemias; N31.9 Neuromuscular dysfunction of bladder, unspecified; K86.81 Exocrine pancreatic insufficiency; B96.1 Klebsiella pneumoniae [K. pneumoniae] as the cause of diseases classified elsewhere; Z68.21 Body mass index [BMI] 21.0-21.9, adult; Z93.2 Ileostomy status; Z88.8 Allergy status to other drugs, medicaments and biological substances; Z79.4 Long term (current) use of insulin; Z79.899 Other long term (current) drug therapy; Z87.11 Personal history of peptic ulcer disease; Z87.81 Personal history of (healed) traumatic fracture; Z98.84 Bariatric surgery status; Z90.49 Acquired absence of other specified parts of digestive tract; Z90.710 Acquired absence of both cervix and uterus; Z90.722 Acquired absence of ovaries, bilateral; Z98.890 Other specified postprocedural states
CPT/HCPCS: 36415; 83605; 83735; 84132; 93005; 93010; 94640; 96361; 96374; 99285 ×2; J1815; J3490; J7030; 51702; 74177; 80048; 80053; 80074; 80143; 80307; 81001; 82947; 85025; 86580; 86706; 87086; 87088; 87186; 99222; 99232; 99233; 99238; A9270-GY; J0696; J1611; J1644; J1956; J2060; J2185; J3475; J7040; Q0162; Q9967

== ENCOUNTER 2023-08-21 13:53 | Inpatient (IN) | payer MEDICARE, OTHER ==
[2023-08-21] MEDS: CALCIUM GLUC IN NACL, ISO-OSM 2,000 MG in Premix Bag 1 BAG IV ONE (14:57)
[2023-08-21 15:20] LABS: BLOOD UREA NITROGEN,BUN 64 mg/dL (7-18); BUN/CREATININE RATIO 33.7 (9-20); CALCIUM 9.3 mg/dL (8.6-10.2); CARBON DIOXIDE,CO2 15 mmol/L (21-32); CHLORIDE,CL 104 mmol/L (100-110); CREATININE 1.9 mg/dL (0.55-1.02); EST CRCL DRUG DOSING (CG) 18.94 mL/min; ESTIMATED GFR 28 mL/min (>60); GLUCOSE RANDOM 195 mg/dL (80-116); SODIUM,NA 132 mmol/L (135-145)
[2023-08-21 15:24] LABS: POTASSIUM,K 6.7 mmol/L (3.5-5.3)
[2023-08-21 15:37] LABS: APPEARANCE,URINE SLIGHTLY CLOUDY (CLEAR); BILIRUBIN,URINE NEGATIVE (NEGATIVE); COLOR,URINE YELLOW (YELLOW); GLUCOSE,URINE NORMAL (NORMAL); KETONES,URINE NEGATIVE (NEGATIVE); LEUKOCYTE ESTERASE,URINE LARGE (NEGATIVE); NITRITE,URINE NEGATIVE (NEGATIVE); OCCULT BLOOD,URINE NEGATIVE (NEGATIVE); PROTEIN,URINE NEGATIVE (NEGATIVE); UROBILINOGEN,URINE NORMAL (NEGATIVE); WBC,URINE 20-30 (0-5)
[2023-08-21 15:38] LABS: BACTERIA,URINE RARE (NS); SQUAMOUS EPITHELIAL CELLS,UR OCCASIONAL (NS,R,O)
[2023-08-21] MEDS: 50% Dextrose in Water 50 ML Syringe IVPUSH ONE (15:51)
[2023-08-21] MEDS: Insulin Regular, Human 100 Units/ML 3 ML Vial IVPUSH ONE (15:51)
[2023-08-21] MEDS: Dextrose 10% in Water 1,000 ML IV SCH (15:57)
[2023-08-21 16:40] LABS: BLOOD UREA NITROGEN,BUN 65 mg/dL (7-18); BUN/CREATININE RATIO 36.1 (9-20); CALCIUM 10.4 mg/dL (8.6-10.2); CARBON DIOXIDE,CO2 17 mmol/L (21-32); CHLORIDE,CL 106 mmol/L (100-110); CREATININE 1.8 mg/dL (0.55-1.02); EST CRCL DRUG DOSING (CG) 19.99 mL/min; ESTIMATED GFR 29 mL/min (>60); GLUCOSE RANDOM 170 mg/dL (80-116); POTASSIUM,K 5.1 mmol/L (3.5-5.3); SODIUM,NA 135 mmol/L (135-145)
[2023-08-21] MEDS: Sodium Chloride 0.9% 10 ML Syringe FLUSH PRN (17:41)
[2023-08-21] MEDS ORDERED: guaiFENesin 100 MG/5 ML Soln 5 ML UD Cup PO PRN (18:10)
[2023-08-21] MEDS ORDERED: Carboxymethylcellulose Sodium 1% Ophth Gel 0.4 ML UD Box of 30 EYEBOTH PRN (18:10)
[2023-08-21] MEDS ORDERED: Loperamide 2 MG Cap PO PRN (18:10)
[2023-08-21] MEDS ORDERED: Cocoa Butter/Phenylephrine Rectal Supp RECTAL PRN (18:10)
[2023-08-21] MEDS ORDERED: Diclofenac Sodium 1% Gel 100 GM Tube TOP PRN (18:10)
[2023-08-21] MEDS ORDERED: Acetaminophen 650 MG Supp RECTAL PRN (18:31)
[2023-08-21] MEDS: Levofloxacin/Dextrose 5%-Water 750 MG in Premix Bag 1 BAG IV ONE (18:36)
[2023-08-21] MEDS: Dextrose 5%-0.9% NaCl 1,000 ML IV SCH (19:41)
[2023-08-21] MEDS ORDERED: Glucagon,Human Recombinant 1 MG Vial IM PRN (20:06)
[2023-08-21] MEDS ORDERED: Aluminum Hydroxide/Magnesium Hydroxide Susp 30 ML Cup PO PRN (20:07)
[2023-08-21] MEDS: Heparin Sodium 5,000 Units/ML Vial SUBCUT SCH (20:26)
[2023-08-21] MEDS: Simvastatin 20 MG Tab PO SCH (20:28)
[2023-08-21] MEDS: Insulin Glargine,Human Rec. Analog 100 Units/ML 3 ML Pen SUBCUT SCH (20:44)
[2023-08-21] MEDS: Magnesium Oxide 400 MG Tab PO SCH (21:29)
[2023-08-21] MEDS: Acetaminophen 325 MG Tab PO PRN (21:30)
[2023-08-21] MEDS: Estradiol 0.01% Vaginal Crm 42.5 GM Tube VAG SCH (21:56)
[2023-08-21 22:25] LABS: BLOOD UREA NITROGEN,BUN 60 mg/dL (7-18); BUN/CREATININE RATIO 37.5 (9-20); CALCIUM 9.5 mg/dL (8.6-10.2); CARBON DIOXIDE,CO2 15 mmol/L (21-32); CHLORIDE,CL 105 mmol/L (100-110); CREATININE 1.6 mg/dL (0.55-1.02); ESTIMATED GFR 34 mL/min (>60); GLUCOSE RANDOM 187 mg/dL (80-116); POTASSIUM,K 5.5 mmol/L (3.5-5.3); SODIUM,NA 133 mmol/L (135-145)
[2023-08-21 22:31] LABS: A/G RATIO 0.9; ALANINE AMINOTRANSFERASE,ALT 17 U/L (12-36); ALKALINE PHOSPHATASE 73 IU/L (56-112); ASPARTATE AMNIOTRANSFERASE,AST 13 IU/L (5-25); BILIRUBIN TOTAL 0.2 mg/dL (0.1-1.3); PROTEIN TOTAL,TP 6.5 g/dL (6.0-8.0)
[2023-08-22] MEDS: Melatonin 3 MG Tab PO PRN (02:44)
[2023-08-22] MEDS: Levothyroxine 100 MCG Tab PO SCH (05:00)
[2023-08-22 06:12] LABS: HEMATOCRIT 30.6 % (34.2-48.2); HEMOGLOBIN 10.1 g/dL (11.4-15.5); MEAN CORPUSCULAR HEMOGLOBIN 31.1 pg (23.9-33.9); MEAN CORPUSCULAR VOLUME 94.1 fL (76.7-100.5); RED CELL DISTRIBUTION WIDTH 16.6 % (12.3-16.5); WHITE BLOOD CELL COUNT,WBC 5.2 x10-3/uL (3.0-10.3)
[2023-08-22 06:23] LABS: A/G RATIO 0.9; ALANINE AMINOTRANSFERASE,ALT 17 U/L (12-36); ALBUMIN 2.8 g/dL (3.2-4.6); ALKALINE PHOSPHATASE 68 IU/L (56-112); ASPARTATE AMNIOTRANSFERASE,AST 17 IU/L (5-25); BILIRUBIN TOTAL 0.2 mg/dL (0.1-1.3); BLOOD UREA NITROGEN,BUN 57 mg/dL (7-18); BUN/CREATININE RATIO 35.6 (9-20); CALCIUM 8.9 mg/dL (8.6-10.2); CARBON DIOXIDE,CO2 18 mmol/L (21-32); CHLORIDE,CL 106 mmol/L (100-110); CREATININE 1.6 mg/dL (0.55-1.02); ESTIMATED GFR 34 mL/min (>60); GLUCOSE RANDOM 160 mg/dL (80-116); PROTEIN TOTAL,TP 6.1 g/dL (6.0-8.0); SODIUM,NA 134 mmol/L (135-145)
[2023-08-22 06:26] LABS: POTASSIUM,K 6.2 mmol/L (3.5-5.3)
[2023-08-22 06:28] LABS: RED BLOOD CELL COUNT 3.25 x10(6)uL (3.60-5.20)
[2023-08-22] MEDS ORDERED: Non-Formulary Medication 1 Each (Omeprazole [Omeprazole] 40 MG Cap.Cr) PO SCH (07:30)
[2023-08-22] MEDS ORDERED: LIPASE PO SCH (08:00)
[2023-08-22] MEDS ORDERED: AMYLASE PO SCH (08:00)
[2023-08-22] MEDS ORDERED: [UNRECOGNIZED DRUG - OTHER] PO SCH (08:00)
[2023-08-22] MEDS ORDERED: GUAR GUM PO SCH (08:00)
[2023-08-22] MEDS ORDERED: PROTEASE PO SCH (08:00)
[2023-08-22] MEDS: Pantoprazole 40 MG Tab.CR PO SCH (08:23)
[2023-08-22] MEDS: Insulin Lispro 100 Unit/ML 3 ML KwikPen SUBCUT SCH ×2 (08:26→17:48)
[2023-08-22] MEDS: Calcitriol 0.25 MCG Cap PO SCH (08:30)
[2023-08-22] MEDS: Allopurinol 100 MG Tab PO SCH (08:30)
[2023-08-22] MEDS: Sodium Polystyrene Sulfonate 15 GM/60 ML Susp 60 ML Bot PO SCH (10:16)
[2023-08-22] MEDS: Calcium Carbonate 500 MG Tablet PO SCH (11:50)
[2023-08-22] MEDS: Multivitamin Tab PO SCH (11:50)
[2023-08-22] MEDS: Ferrous Sulfate 325 MG Tab PO SCH (11:50)
[2023-08-23 06:10] LABS: ALANINE AMINOTRANSFERASE,ALT 21 U/L (12-36); ALBUMIN 3.5 g/dL (3.2-4.6); ALKALINE PHOSPHATASE 77 IU/L (56-112); ASPARTATE AMNIOTRANSFERASE,AST 22 IU/L (5-25); BILIRUBIN TOTAL 0.3 mg/dL (0.1-1.3); BLOOD UREA NITROGEN,BUN 55 mg/dL (7-18); BUN/CREATININE RATIO 26.2 (9-20); CALCIUM 9.6 mg/dL (8.6-10.2); CARBON DIOXIDE,CO2 21 mmol/L (21-32); CHLORIDE,CL 102 mmol/L (100-110); EST CRCL DRUG DOSING (CG) 20.04 mL/min; ESTIMATED GFR 24 mL/min (>60); GLUCOSE RANDOM 173 mg/dL (80-116); HEMATOCRIT 34.8 % (34.2-48.2); HEMOGLOBIN 11.7 g/dL (11.4-15.5); MEAN CORPUSCULAR HEMOGLOBIN 31.7 pg (23.9-33.9); MEAN CORPUSCULAR HGB CONC 33.6 g/dL (31.9-34.8); MEAN CORPUSCULAR VOLUME 94.3 fL (76.7-100.5); MEAN PLATELET VOLUME 7.3 fL (7.1-12.4); PLATELET COUNT,PLT 295 x10(3)uL (151-488); POTASSIUM,K 4.6 mmol/L (3.5-5.3); PROTEIN TOTAL,TP 7.2 g/dL (6.0-8.0); RED BLOOD CELL COUNT 3.68 x10(6)uL (3.60-5.20); SODIUM,NA 137 mmol/L (135-145)
[2023-08-23 06:14] LABS: CREATININE 2.1 mg/dL (0.55-1.02)
[2023-08-23 06:49] LABS: ANISOCYTOSIS FEW; EOSINOPHILS PERCENT MAN 2 % (0-5); LYMPHOCYTES PERCENT MAN 28 % (13-37); MONOCYTES PERCENT MAN 9 % (4-12); SEG NEUTROPHILS PERCENT MAN 61 % (46-82)
[2023-08-23 08:38] VITALS: BP 88/66; PULSE 74
[2023-08-23] MEDS: Allopurinol 300 MG Tab PO SCH (08:39)
[2023-08-23] MEDS ORDERED: Insulin Glargine,Human Rec. Analog 100 Units/ML 3 ML Pen SUBCUT ONE (10:22)
[2023-08-23] MEDS ORDERED: Insulin Lispro 100 Unit/ML 3 ML KwikPen SUBCUT ONE (10:22)
[2023-08-23] MEDS ORDERED: Levofloxacin/Dextrose 5%-Water 500 MG in Premix Bag 1 BAG IV SCH (18:00)
[2023-08-24 18:51] LABS: CREATININE, URINE - PER VOLUME 100 mg/dL; HOURS COLLECTED Random hr; SODIUM, URINE - PER VOLUME <20 mmol/L; TOTAL VOLUME Random mL
[2023-08-26 07:35] LABS: CREATININE,URINE - PER VOLUME 100 mg/dL; HOURS COLLECTED Random hr; TOTAL VOLUME Random mL
== END 2023-08-23 10:23 | DRG 683 ==
LOC: FB.ED 13:53 → FB.MS 15:39 → UNDOADMIN 16:51 → FB.MS 16:51 → UNDODISIN 08-23 10:23
PROVIDERS: ADMIT Family Medicine; ATTEND Family Medicine
DX: N17.9 Acute kidney failure, unspecified (principal); E87.1 Hypo-osmolality and hyponatremia; N39.0 Urinary tract infection, site not specified; T83.511A Infection and inflammatory reaction due to indwelling urethral catheter, initial encounter; N28.9 Disorder of kidney and ureter, unspecified; E87.22 Chronic metabolic acidosis; E87.5 Hyperkalemia; E11.22 Type 2 diabetes mellitus with diabetic chronic kidney disease; Z79.899 Other long term (current) drug therapy; E03.9 Hypothyroidism, unspecified; E78.00 Pure hypercholesterolemia, unspecified; M19.90 Unspecified osteoarthritis, unspecified site; D63.1 Anemia in chronic kidney disease; E21.3 Hyperparathyroidism, unspecified; N18.32 Chronic kidney disease, stage 3b; E11.65 Type 2 diabetes mellitus with hyperglycemia; Z93.2 Ileostomy status; Z88.8 Allergy status to other drugs, medicaments and biological substances; Z79.4 Long term (current) use of insulin; Z98.49 Cataract extraction status, unspecified eye; Z87.11 Personal history of peptic ulcer disease; Z79.890 Hormone replacement therapy; Z90.710 Acquired absence of both cervix and uterus; Z90.721 Acquired absence of ovaries, unilateral; Z90.49 Acquired absence of other specified parts of digestive tract; Z90.89 Acquired absence of other organs; Z98.890 Other specified postprocedural states
CPT/HCPCS: 36415; 80048 ×2; 81001; 82570; 84300; 87086; 93005; 96365; 99285; J0612; J1815; J7060; 80053; 82947; 85025; 85027; 87040; 93010; 99222; 99232; 99239; A9270-GY; J1644; J1956; J3490

== ENCOUNTER 2023-08-27 10:45 | Emergency (ER) | payer MEDICARE, OTHER ==
[2023-08-27 12:05] LABS: HEMATOCRIT 34.8 % (34.2-48.2); HEMOGLOBIN 11.7 g/dL (11.4-15.5); MEAN CORPUSCULAR HEMOGLOBIN 31.3 pg (23.9-33.9); MEAN CORPUSCULAR HGB CONC 33.5 g/dL (31.9-34.8); MEAN CORPUSCULAR VOLUME 93.2 fL (76.7-100.5); MEAN PLATELET VOLUME 6.9 fL (7.1-12.4); PLATELET COUNT,PLT 281 x10(3)uL (151-488); RED BLOOD CELL COUNT 3.73 x10(6)uL (3.60-5.20); RED CELL DISTRIBUTION WIDTH 16.6 % (12.3-16.5); WHITE BLOOD CELL COUNT,WBC 7.7 x10-3/uL (3.0-10.3)
[2023-08-27 12:14] LABS: ALANINE AMINOTRANSFERASE,ALT 22 U/L (12-36); ALBUMIN 3.6 g/dL (3.2-4.6); ALKALINE PHOSPHATASE 79 IU/L (56-112); ASPARTATE AMNIOTRANSFERASE,AST 17 IU/L (5-25); BILIRUBIN TOTAL 0.2 mg/dL (0.1-1.3); BLOOD UREA NITROGEN,BUN 80 mg/dL (7-18); BUN/CREATININE RATIO 36.4 (9-20); CARBON DIOXIDE,CO2 16 mmol/L (21-32); CHLORIDE,CL 99 mmol/L (100-110); EST CRCL DRUG DOSING (CG) 16.36 mL/min; ESTIMATED GFR 23 mL/min (>60); GLUCOSE RANDOM 221 mg/dL (80-116); POTASSIUM,K 5.6 mmol/L (3.5-5.3); PROTEIN TOTAL,TP 7.2 g/dL (6.0-8.0); SODIUM,NA 129 mmol/L (135-145)
[2023-08-27 12:30] LABS: CREATININE 2.2 mg/dL (0.55-1.02)
[2023-08-27 12:31] LABS: MAGNESIUM 1.1 mg/dL (1.8-2.5)
[2023-08-27] MEDS ORDERED: Glucagon,Human Recombinant 1 MG Vial IM PRN (12:41)
[2023-08-27] MEDS ORDERED: Insulin Regular, Human 100 Units/ML 3 ML Vial SUBCUT ONE (12:41)
[2023-08-27] MEDS ORDERED: 50% Dextrose in Water 50 ML Syringe IVPUSH PRN (12:41)
[2023-08-27 12:49] LABS: ANISOCYTOSIS FEW; LYMPHOCYTES PERCENT MAN 25 % (13-37); MONOCYTES PERCENT MAN 9 % (4-12); SEG NEUTROPHILS PERCENT MAN 66 % (46-82)
[2023-08-27] MEDS: Magnesium Oxide 400 MG Tab PO ONE (13:19)
[2023-08-27] MEDS: Albuterol 0.083% 2.5 MG/3 ML Neb Soln NEB ONE (13:19)
[2023-08-27] MEDS: Sodium Chloride 0.9% 1,000 ML IV ONE (13:21)
[2023-08-27] MEDS: Sodium Bicarbonate 8.4% 50 MEQ/50 ML Syringe IVPUSH ONE (13:26)
[2023-08-27] MEDS: Sodium Polystyrene Sulfonate 15 GM/60 ML Susp 60 ML Bot PO ONE (13:51)
[2023-08-27] MEDS: Insulin Regular, Human 100 Units/ML 10 ML Vial SUBCUT ONE (13:55)
[2023-08-27] MEDS: Magnesium Sulfate/Water 2 GM in Premix Bag 1 BAG IV ONE (13:56)
[2023-08-27] MEDS: Sodium Chloride 0.9% 10 ML Syringe FLUSH PRN (16:05)
[2023-08-27 16:18] LABS: CREATININE 1.9 mg/dL (0.55-1.02); EST CRCL DRUG DOSING (CG) 18.94 mL/min; MAGNESIUM 1.9 mg/dL (1.8-2.5)
[2023-08-27 17:03] VITALS: BP 130/68; PULSE 86
== END 2023-08-27 17:25 ==
LOC: FB.ED 10:45
DX: E87.5 Hyperkalemia (principal); E83.42 Hypomagnesemia; E86.0 Dehydration; K94.19 Other complications of enterostomy; E78.00 Pure hypercholesterolemia, unspecified; N18.9 Chronic kidney disease, unspecified; E11.22 Type 2 diabetes mellitus with diabetic chronic kidney disease; E03.9 Hypothyroidism, unspecified; Z90.49 Acquired absence of other specified parts of digestive tract; Z90.710 Acquired absence of both cervix and uterus; Z88.8 Allergy status to other drugs, medicaments and biological substances; Z79.899 Other long term (current) drug therapy; Z79.4 Long term (current) use of insulin; Z79.890 Hormone replacement therapy
CPT/HCPCS: 36415; 80053; 82565; 83735; 84132; 84295; 85025; 93005; 94640; 96361; 96365; 96366; 96375; 99285; A9270; J3475; J3490; J7030; J1815-GY

== ENCOUNTER 2024-09-07 11:03 | Emergency (ER) | payer MEDICARE, OTHER ==
[2024-09-07] MEDS ORDERED: Sodium Chloride 0.9% 10 ML Syringe FLUSH PRN (11:18)
[2024-09-07 11:57] LABS: BASOPHILS ABSOLUTE AUTO 0.0 x10-3/uL (0.0-0.1); BASOPHILS PERCENT AUTO 0.6 % (0.2-1.5); EOSINOPHILS ABSOLUTE AUTO 0.2 x10-3/uL (0.0-0.8); EOSINOPHILS PERCENT AUTO 2.8 % (0.6-8.1); LYMPHOCYTES ABSOLUTE AUTO 1.8 x10-3/uL (1.0-4.4); LYMPHOCYTES PERCENT AUTO 30.6 % (18.4-52.1); MEAN PLATELET VOLUME 6.5 fL (7.1-12.4); MONOCYTES ABSOLUTE AUTO 0.7 x10-3/uL (0.3-1.0); MONOCYTES PERCENT AUTO 12.3 % (4.4-15.7); NEUTROPHILS ABSOLUTE AUTO 3.1 x10-3/uL (1.5-6.3); NEUTROPHILS PERCENT AUTO 53.7 % (30.8-76.2); PLATELET COUNT,PLT 214 x10(3)uL (151-488); RED BLOOD CELL COUNT 3.79 x10(6)uL (3.60-5.20); RED CELL DISTRIBUTION WIDTH 15.4 % (12.3-16.5); WHITE BLOOD CELL COUNT,WBC 5.8 x10-3/uL (3.0-10.3)
[2024-09-07 11:59] LABS: BLOOD UREA NITROGEN,BUN 30 mg/dL (7-18); CARBON DIOXIDE,CO2 23 mmol/L (21-32); CHLORIDE,CL 104 mmol/L (100-110); CREATININE 1.7 mg/dL (0.55-1.02); EST CRCL DRUG DOSING (CG) 25.07 mL/min; ESTIMATED GFR 31 mL/min (>60); GLUCOSE RANDOM 213 mg/dL (80-116); POTASSIUM,K 4.1 mmol/L (3.5-5.3); SODIUM,NA 135 mmol/L (135-145)
[2024-09-07 12:08] LABS: LACTIC ACID 1.7 mmol/L (0.4-2.0)
[2024-09-07 12:09] LABS: A/G RATIO 0.8; ALANINE AMINOTRANSFERASE,ALT 24 U/L (12-36); ASPARTATE AMNIOTRANSFERASE,AST 21 IU/L (5-25); BILIRUBIN TOTAL 0.4 mg/dL (0.1-1.3); PROTEIN TOTAL,TP 6.6 g/dL (6.0-8.0)
[2024-09-07 13:38] VITALS: BP 133/67; PULSE 64
[2024-09-10 21:30] LABS: ADENOVIRUS 40/41 PCR Not Detected; ASTROVIRUS PCR Not Detected; CRYPTOSPORIDIUM PCR Not Detected; CYCLOSPORA CAYETANENSIS PCR Not Detected; ENTAMOEBA HISTOLYTICA PCR Not Detected; ENTEROAGGREGATIVE E. COLI PCR Not Detected; ENTEROPATHOGENIC E. COLI PCR Not Detected; ENTEROTOXIGENIC E. COLI PCR Not Detected; GIARDIA LAMBLIA PCR Not Detected; NOROVIRUS GI/GII PCR Not Detected; PLESIOMONAS SHIGELLOIDES PCR Not Detected; ROTAVIRUS A PCR Not Detected; SALMONELLA PCR Not Detected; SAPOVIRUS PCR Not Detected; SHIG/ENTEROINVASIVE E COLI PCR Not Detected; SHIGA TOXIN-PRODUC E. COLI PCR Not Detected; VIBRIO CHOLERAE PCR Not Detected; VIBRIO PCR Not Detected; YERSINIA ENTEROCOLITICA PCR Not Detected
== END 2024-09-07 13:29 ==
LOC: FB.ED 11:03
DX: R19.7 Diarrhea, unspecified (principal); R21 Rash and other nonspecific skin eruption; R15.9 Full incontinence of feces; E11.69 Type 2 diabetes mellitus with other specified complication; E78.00 Pure hypercholesterolemia, unspecified; K21.9 Gastro-esophageal reflux disease without esophagitis; E11.22 Type 2 diabetes mellitus with diabetic chronic kidney disease; N18.9 Chronic kidney disease, unspecified; E03.9 Hypothyroidism, unspecified; Z43.2 Encounter for attention to ileostomy; Z86.16 Personal history of COVID-19; Z90.49 Acquired absence of other specified parts of digestive tract; Z90.710 Acquired absence of both cervix and uterus; Z88.8 Allergy status to other drugs, medicaments and biological substances; Z79.4 Long term (current) use of insulin; Z79.890 Hormone replacement therapy; Z79.899 Other long term (current) drug therapy
CPT/HCPCS: 36415; 80053; 82272; 83036; 83605; 83735; 84550; 85025; 85379; 86140; 87040; 87230; 87507; 96360; 96361; 99284; J7030